=== PATIENT | female | born 1955 | race Caucasian/White ===

== ENCOUNTER 2017-12-28 13:17 | Emergency (ER) | payer BC, SELFPAY ==
[2017-12-28 13:17] VITALS: BP 155/92; PULSE 108; RESP 20; TEMP 37.2; O2SAT 94
[2017-12-28 13:21] VITALS: RESP 16
--- NOTE | 2017-12-28 14:34 | ED.GENADUL_ITS ---
Discharge Plan Disposition Patient Disposition: HOME Condition: Stable Discharge Details Chief Complaint: SOB Clinical Impression: EtOH dependence, Community acquired pneumonia Primary Care Provider: Javy Molina ED Provider: Ryan Navarro Home Meds and New Rx's Prescriptions: New azithromycin 250 mg tablet See Label Instructions .ROUTE .COMPLEX Qty: 6 RF: 0 chlordiazepoxide HCl 25 mg capsule 25 mg PO Q12H PRN (Reason: alcohol withdrawal) Qty: 10 RF: 0 Discharge Instructions Instructions: Abuse of Alcohol (ED), Community Acquired Pneumonia (ED) Additional Instructions: Please take medications as directed, if you feel any change of heart and you would like the additional workup that we talked about, or potential placement for rehab, or if you have any worsening of your symptoms please return immediately. if you notice any worsening of your symptoms, or any new symptoms such as vomiting, diarrhea, fever, chills, shortness of breath, chest pain, numbness, weakness, or fainting , please return immediately to the emergency department for reevaluation. Please follow up with your primary care provider as soon as possible for reassessment and reevaluation. As always, it was a pleasure participating in your medical care today. Referrals: Javy Molina MD [Primary Care Provider] - Discharge Data Discharge Date/Time-TO BE ENTERED AT DEPARTURE: 12/28/17 14:50 Medical Decision Making This is a pleasant 62-year-old female who presents for evaluation of cough for the last 2 weeks with some associated congestion. Cough is productive. She does have a tobacco history. She has no associated chest pain or shortness of breath. Initially the patient refused any labs, imaging studies , and stated she just wanted an antibiotic. She refused any blood draw, or other invasive procedures. Physical exam demonstrated normal lung sounds, O2 sat of 94-98%. She is minimally tachycardic at 108. I discussed the need for further workup, the patient refuses, stating she did not want anything additional at this time. I discussed risks and benefits of a lack of further workup the patient states that she understands. However prior to discharge the patient's came in the room and states that there is more to this scenario. He states that over the last few weeks the patient has been drinking an excessive amount of alcohol. She drinks at least 6 beers per day at a minimum. He states that she is addicted to alcohol, and has a significant problem. and then got an argument in front of myself regarding the merits of alcoholism, and addiction. After a prolonged discussion the made it clear that he wanted the patient to have help. Patient states that she does not want help, she does not want to go to rehab, she wants no additional testing or anything else. Patient does state that she wants to cut down on alcohol, but is not willing to quit. Patient does appear clinically sober sent, and shows no signs of significant intoxication. I cannot force the patient against her will to undergo laboratory workup, or placement. After a long discussion, the patient was willing to accept a prescription for chlordiazepoxide for potential withdrawal symptoms, as well as azithromycin for suspected clinical pneumonia. We did give the patient resources for community health, Alcoholics Anonymous, and other community resources. I do long discussion with the patient regarding the importance of prompt return if she has any change of her symptoms, or if she at any point would like to complete the workup which we want to evaluate for any other acute etiology causing her symptoms. Patient understands as does the as well. The patient is able to speak clearly. There is no demonstration of any slurring of speech. There is evidence of clear decision making capacity. Patient is able to ambulate well without any difficulty. There are no signs of ataxia or stumbling motions. Patient will be discharged home against my medical recommendation. Diagnosis clinical pneumonia and alcohol abuse. I have extensively reviewed the treatment plan and discharge instructions with the patient and their family. I have addressed all patient concerns at this time. The patient and family was made aware of what symptoms to monitor for that would warrant a return to the emergency department. Discussed the plan with the patient and family, they demonstrate verbal understanding and agreement with our assessment and plan at this time. EKG 13: 25 Rate 92, RI 144, QTc 428, QRS 88, normal sinus rhythm, no ST elevations or depressions, inverted T waves in V1 and lead III no Q waves. HPI General Date/Time Provider Initiated Documentation: 12/28/17 14:31 . HPI Narrative: This is a 62-year-old female with a past medical history of anxiety and asthma who presents for evaluation of cough. Patient states for the last 2 weeks she has had a mild cough, she has some productive alvarez sputum. She denies any chest pain or associated shortness of breath. She denies any history of cardiac disease or arm neck or shoulder pain. She denies any associated fever. She states that she has had symptoms like this last year , where she had associated clinical pneumonia, she was given azithromycin and had notable improvement. She denies any other sick contacts. She denies any other complaints or modifying factors at this time. She does take her breathing treatments at home and states that this helps her symptoms. Denies PE risk factors such as recent long car rides, immobilization, recent surgery, prior history of DVT or PE, family history of PE or DVT, morbid obesity, exogenous estrogen and smoking, hemoptysis, history of cancer. She denies any other complaints at this time. Related Data Home Medications Medication Instructions Recorded Confirmed azithromycin See Label Instructions .ROUTE 12/28/17 .COMPLEX #6 tab chlordiazepoxide HCl 25 mg PO Q12H PRN #10 cap 12/28/17 Previous Rx's Medication Instructions Recorded azithromycin See Label Instructions .ROUTE 12/28/17 .COMPLEX #6 tab chlordiazepoxide HCl 25 mg PO Q12H PRN #10 cap 12/28/17 General Stated Complaint: SOB ARIANE: 3 Review of Systems Review of Systems All systems reviewed & are unremarkable except as noted in HPI and below PFSH Social History Smoking/Tobacco Use Status: Never Exam Narrative Exam Narrative: 1.Const: Well-nourished, Well-developed, appearing stated age 2.Eyes: PERRL, no conjunctival injection, and symmetrical lids. 3.ENT: Atraumatic external nose and ears. Moist MM. Neck: Symmetric, trachea midline, No thyromegaly. Questionable smell of alcohol in the patient's breath 4.CVS: +S1/S2, No murmurs or gallops. Peripheral pulses 2+ and equal in all extremities. Brisk capillary refill in all extremities. 5.RESP: Unlabored respiratory effort. Clear to auscultation bilaterally. No wheezes rales or rhonchi. No signs of significant respiratory distress. 6.GI: Soft, Nontender/Nondistended, No hepatosplenomegaly. No guarding or rebound. 7.MSK: Normocephalic/Atraumatic, Extremities w/o deformity or ttp No cyanosis or clubbing, Normal movement of all extremities 8.Skin: Warm, Dry. No rashes or lesions. 9.Neuro: glass unloading equipment tender II-XII grossly intact. Sensation grossly intact, no focal neurologic deficits. 10.Psych: (AAO) x3. Appropriate mood and affect Course Vital Signs Temperature 37.2 C 12/28/17 13:17 Pulse 108 H 12/28/17 13:17 Respiratory Rate 20 12/28/17 13:17 Blood Pressure 155/92 H 12/28/17 13:17 Pulse Oximetry 94 L 12/28/17 13:17 Temperature 37.2 C 12/28/17 13:17 Temperature Source Temporal Artery Scan 12/28/17 13:17 Pulse 108 H 12/28/17 13:17 Respiratory Rate 16 12/28/17 13:21 Respiratory Effort Labored 12/28/17 13:21 Respiratory Depth Normal 12/28/17 13:21 Respiratory Pattern Tachypnea 12/28/17 13:21 Blood Pressure 155/92 H 12/28/17 13:17 Blood Pressure Position Sitting 12/28/17 13:17 Pulse Oximetry 94 L 12/28/17 13:17 Oxygen Delivery Method Room Air 12/28/17 13:17 Oxygen Flow Rate 0 12/28/17 13:17 Pain Level 0 12/28/17 13:17
== END 2017-12-28 14:50 | disposition home or self-care (01) ==
LOC: ER 14:54
PROVIDERS: Emergency Provider Student in an Organized Health Care Education/Training Program; PCP Internal Medicine
DX: F10.20 Alcohol dependence, uncomplicated (principal); J18.9 Pneumonia, unspecified organism; R00.0 Tachycardia, unspecified; J45.909 Unspecified asthma, uncomplicated; Z53.29 Procedure and treatment not carried out because of patient's decision for other reasons
CPT/HCPCS: 93005; 99283; 93010

== ENCOUNTER 2018-08-24 20:53 | Outpatient (REF) | payer MEDICARE, SELFPAY ==
[2018-08-24 22:08] LABS: Abs Immature Grans 0.04 k/cumm (0.0-0.09); Absolute Basophil Count 0.03 k/cumm (0.0-0.2); Absolute Eosinophil Count 0.03 k/cumm (0.0-0.7); Absolute Lymphocyte Count 0.45 k/cumm (1.2-3.4); Absolute Monocyte Count 0.47 k/cumm (0.11-0.7); Absolute Neutrophil Count 3.29 k/cumm (1.2-6.7); Basophils % 0.7; Eosinophils % 0.7; HCT 42.6 % (36.0-46.0); HGB 14.1 g/dL (12.0-15.5); Immature Grans % 0.9; Lymphocytes % 10.4; Mean Corp. HGB Concentration 33.1 g/dL (32.0-36.0); Mean Corpuscular Hemoglobin 35.5 pg (27.0-33.0); Mean Corpuscular Volume 107.3 fL (80-95); Mean Platelet Volume 9.9 fL (8.0-11.0); Monocytes % 10.9; Neutrophils % 76.4; RBC 3.97 m/cumm (4.00-5.20); RBC Distribution Width 12.9 % (11.7-14.6); White Blood Cell Count 4.31 k/cumm (4.4-10.8)
[2018-08-24 22:19] LABS: Iron 44 ug/dL (50-175); Total Iron Binding Capacity 250 ug/dL (250-450); Transferrin Sat 18 % (15-50)
[2018-08-24 22:48] LABS: Diff Comment RBC Morph Reviewed; Macrocytosis 2+; Platelet Count 69 x1000/uL (130-400)
[2018-08-24 23:13] LABS: ALT 118 U/L (12-78); AST 224 U/L (15-37); Albumin 3.8 g/dL (3.4-5.0); Alkaline Phosphatase 302 U/L (46-116); Anion Gap 15.9 mmol/L (3-11); BUN 9 mg/dL (7-18); Bilirubin, Total 1.8 mg/dL (0.2-1.0); CO2 25.1 mmol/L (21.0-32.0); CREATININE 0.73 mg/dL (0.55-1.02); Calcium 9.6 mg/dL (8.5-10.1); Chloride 104 mmol/L (98-107); Glucose 122 mg/dL (70-100); Magnesium 1.8 mg/dL (1.8-2.4); Potassium 3.3 mmol/L (3.5-5.1); Sodium 145 mmol/L (136-145); TSH (W/Ref FT4) 1.68 uIU/mL (0.358-3.74); Total Protein 7.1 g/dL (6.4-8.2); Vitamin B12 1267 pg/mL (193-986)
[2018-08-24 23:20] LABS: Ferritin 1762 ng/mL (8-388)
[2018-08-26 10:38] LABS: Hepatitis A Antibody IgM Negative (NEGAT); Hepatitis B Core Antibody Negative (NEGAT); Hepatitis B surface Ag Negative (NEGAT); Hepatitis C Ab w Rflx HCV PCR Negative (NEGAT)
== END 2018-08-24 21:13 ==
LOC: NCHCN 20:53
PROVIDERS: PCP Nurse Practitioner Family; Visit Provider Nurse Practitioner Family
DX: R41.3 Other amnesia (principal); R13.10 Dysphagia, unspecified; R06.83 Snoring; R10.31 Right lower quadrant pain; R79.89 Other specified abnormal findings of blood chemistry; R74.8 Abnormal levels of other serum enzymes
CPT/HCPCS: 80053; 86704; 86709; 86803; 87340; 82607; 82728; 83540; 83550; 83735; 84443; 85025

== ENCOUNTER 2018-08-25 01:27 | Outpatient (CLI) | payer MEDICARE, SELFPAY ==
--- NOTE | 2018-08-25 09:31 | DI.RAD_ITS ---
SYMPTOM/DIAGNOSIS: ACCIDENTAL FALL W19.XXXA, GROIN PAIN RT R10.31 PELVIS AND LEFT HIP: No fracture or dislocation is seen. Hip joint spaces are well maintained. There is some sclerosis of the pubic symphysis and S-I joints. Degenerative changes are seen of the facets of the lower lumbar spine. IMPRESSION: No acute abnormality.
== END 2018-08-25 01:47 ==
PROVIDERS: PCP Nurse Practitioner Family; Visit Provider Nurse Practitioner Family
DX: R10.31 Right lower quadrant pain (principal); W19.XXXA Unspecified fall, initial encounter
CPT/HCPCS: 73502

== ENCOUNTER 2018-08-28 10:03 | Outpatient (CLI) | payer MEDICARE, SELFPAY ==
--- NOTE | 2018-09-16 11:57 | ZIOP_ITS ---
DATE OF INTERPRETATION: September 16, 2018 STUDY INDICATIONS: Arrhythmia. REQUESTING PROVIDER: Sue Bhatia N.P. FINDINGS: The patient was monitored for 12 days and 15 hours. The predominant underlying rhythm was sinus rhythm. Average heart rate in sinus rhythm 77 bpm, range 47-116 bpm. There was rare ectopy. There were 6 episodes of supraventricular tachycardia, average heart rate 134 bpm, range 66-197 bpm. The longest episode lasted 10.2 seconds with an average heart rate of 138 bpm. There were no pauses greater than 3 seconds. There was no high degree heart block. There were no patient events. FINAL INTERPRETATION: Rare, asymptomatic atrial tachyarrhythmias.
== END 2018-08-28 10:23 ==
PROVIDERS: PCP Nurse Practitioner Family; Visit Provider Nurse Practitioner Family
DX: I47.9 Paroxysmal tachycardia, unspecified (principal); I47.1 Supraventricular tachycardia; I49.9 Cardiac arrhythmia, unspecified
CPT/HCPCS: 0296T

== ENCOUNTER 2018-09-01 01:13 | Outpatient (CLI) | payer MEDICARE, SELFPAY ==
--- NOTE | 2018-09-01 07:38 | DI.US_ITS ---
SYMPTOM/DIAGNOSIS: ELEVATED LIVER ENZYMES, R74.8 ABDOMEN ULTRASOUND: The liver is normal in size but shows diffusely increased echogenicity and decreased through transmission consistent with fatty infiltration. No focal liver lesions or biliary dilatation is seen. A 7 mm rounded nonshadowing focus is seen in the gallbladder which may represent a small polyp. There is a question of a stone at the lower pole of the left kidney as well as an additional stone at the upper pole of the right kidney. There is no evidence of hydronephrosis or perinephric collection. The pancreas, spleen and aorta appear normal. There is no right upper quadrant fluid. IMPRESSION: Moderate hepatic steatosis. Question of bilateral nonobstructing renal calculi
== END 2018-09-01 01:33 ==
PROVIDERS: PCP Nurse Practitioner Family; Visit Provider Nurse Practitioner Family
DX: R74.8 Abnormal levels of other serum enzymes (principal); K76.0 Fatty (change of) liver, not elsewhere classified; N20.0 Calculus of kidney
CPT/HCPCS: 76700

== ENCOUNTER 2018-10-28 13:40 | Emergency (ER) | payer MEDICARE, SELFPAY ==
[2018-10-28] VITALS (23 sets, daily range): BP systolic 106–143; BP diastolic 63–120; PULSE 60–102; RESP 9–23; TEMP 36.7; O2SAT 92–98
--- NOTE | 2018-10-28 13:53 | ED.GENADUL_ITS ---
Discharge Plan Disposition Patient Disposition: HOME Condition: Improving Discharge Details Chief Complaint: AMS/LOC Clinical Impression: Alcohol intoxication Primary Care Provider: Sue Bhatia ED Provider: Jesu Blanton Home Meds and New Rx's Prescriptions: Continued chlordiazepoxide HCl 25 mg capsule 25 mg PO Q12H PRN (Reason: alcohol withdrawal) Qty: 10 RF: 0 No Action azithromycin 250 mg tablet See Rx Instructions .ROUTE .COMPLEX Qty: 6 RF: 0 Discharge Instructions Instructions: Alcohol Intoxication (ED) Additional Instructions: Please follow-up with Elaina Sriram for recheck. Decrease your alcohol use. Home to rest today. Return for any acute concern Medical Decision Making 63-year-old female who was drinking alcohol this morning. She eleuterio to get up off the couch, felt unsteady, fell backwards striking her head. There was report of question of 3 to 4 seconds of loss of consciousness. Patient states she now feels normal. She denied chest pain, palpitations, headache. She presents with blood pressure 139/95, otherwise normal vital signs. Her exam is within normal limits. Clinically she is engaging with fluent speech, does not appear intoxicated. Given her use of alcohol, screening laboratories obtained and as well patient referred for CT scan to rule out cranial injury. Laboratories notable for alcohol level of 410. Total bili is 1.3, AST 26, ALT 126. Troponin negative. Sodium 141, potassium 3.4, chloride 98, bicarb 23. There is a measured anion gap of 19 likely due to alcohol. CBC with white blood cell count 4, hematocrit 43, platelets low at 54. Note of MCV elevated. CT scan of the head unremarkable. Given 1 L fluid and observed with improvement. No complaints. She is clinically sober. Discussed her alcohol use with her and she declines further referral at this time. She is stable for discharge to home. ECG Data Attestation: I personally reviewed and interpreted this ECG (s) as follows: Interpretation: Normal sinus rhythm with a rate of 78, the QRS is narrow, no ST segment changes present. HPI General Mode of arrival: EMS . Date/Time Provider Initiated Documentation: 10/28/18 13:48 . Limitations to Documentation: no limitations . Information obtained by: patient and EMS . History of Present Illness 63 year old F presents to the emergency department with the chief complaint of Fall at home, no pain, described as mild, and is localized to the head. Patient reports no radiation. Patient started experiencing this minute(s) and it has been now resolved. No relieving factors improve symptom(s), No exacerbating factors reported . Patient notes no other symptoms. and other (Drinking alcohol this morning). Patient did receive the following treatments prior to arrival, none Related Data Home Medications Medication Instructions Recorded Confirmed azithromycin See Rx Instructions .ROUTE 12/28/17 .COMPLEX #6 tab chlordiazepoxide HCl 25 mg PO Q12H PRN #10 cap 12/28/17 Previous Rx's Medication Instructions Recorded azithromycin See Rx Instructions .ROUTE 12/28/17 .COMPLEX #6 tab chlordiazepoxide HCl 25 mg PO Q12H PRN #10 cap 12/28/17 General Stated Complaint: AMS/LOC ARIANE: 2 Review of Systems Review of Systems 6 systems reviewed and otherwise negative. States she has occasional use of alcohol during the day. Denies headache, no back/chest/abdomen pain. [facility] Social History Smoking/Tobacco Use Status: Never Drug use: Never Do you feel safe in your relationship?: Yes Exam Narrative Exam Narrative: GEN: awake, alert, oriented 3. Pleasant, well groomed, interactive. HEAD: Normocephalic, atraumatic ENT: Mucous membranes moist, oropharynx unremarkable, External ear exam unremarkable EYES: PERRL, EOMI NECK: Full ROM, no PAOLA, no menigismus CHEST/RESP: Nontender, clear to auscultation bilateral, no wheeze/rhonchi/rales CARDIOVASCULAR: RRR, no murmur, rub pedro. 2+ Rad pulse bilateral ABDOMEN: Soft, nontender, no mass. +Bowel sounds EXT: Full ROM, no edema, no rash Neuro: Grossly normal neurologic exam, conversant, interactive. Psych: Speech fluent, thoughts congruent, affect normal Course Vital Signs Temperature 36.7 C 10/28/18 13:40 Pulse 89 10/28/18 13:40 Respiratory Rate 16 10/28/18 13:40 Blood Pressure 139/95 H 10/28/18 13:40 Pulse Oximetry 94 L 10/28/18 13:40 Temperature 36.7 C 10/28/18 13:40 Temperature Source Temporal Artery Scan 10/28/18 13:40 Pulse 89 10/28/18 13:40 Respiratory Rate 16 08/28/19 13:40 Blood Pressure 139/95 H 10/28/18 13:40 Blood Pressure Position Supine 10/28/18 13:40 Pulse Oximetry 94 L 10/28/18 13:40 Oxygen Delivery Method Room Air 10/28/18 13:40 Oxygen Flow Rate 0 10/28/18 13:40
--- NOTE | 2018-10-28 13:53 | DI.CT_ITS ---
SYMPTOMS/DIAGNOSIS: FALL, LOSS OF CONSCIOUSNESS, POSITIVE ALCOHOL CT BRAIN: Noncontrast. No priors. The ventricles and sulci are consistent with the patient's age. No acute intracranial hemorrhage, midline shift or mass effect is identified. The ventricles are intact. The basilar cisterns are patent. The visualized paranasal sinuses and mastoid air cells are clear. The calvarium is intact. IMPRESSION: No acute intracranial process. The findings were discussed with the emergency department on the date of the examination.
[2018-10-28] MEDS: Normal Saline 1,000 ML 1000 ML IV (14:10)
[2018-10-28 14:20] LABS: ALT 126 U/L (14-59); AST 261 U/L (15-37); Abs Immature Grans 0.05 k/cumm (0.0-0.09); Absolute Basophil Count 0.04 k/cumm (0.0-0.2); Absolute Eosinophil Count 0.02 k/cumm (0.0-0.7); Absolute Lymphocyte Count 0.75 k/cumm (1.2-3.4); Absolute Monocyte Count 0.36 k/cumm (0.11-0.7); Albumin 4.2 g/dL (3.4-5.0); Alkaline Phosphatase 179 U/L (46-116); Anion Gap 19.3 mmol/L (3-11); BUN 10 mg/dL (7-18); Bilirubin, Total 1.3 mg/dL (0.2-1.0); CO2 23.7 mmol/L (21.0-32.0); CREATININE 0.64 mg/dL (0.55-1.02); Calcium 9.1 mg/dL (8.5-10.1); Chloride 98 mmol/L (98-107); Eosinophils % 0.5; Glucose 74 mg/dL (70-100); HCT 43.7 % (36.0-46.0); HGB 14.5 g/dL (12.0-15.5); Immature Grans % 1.2; Lymphocytes % 18.7; Magnesium 1.9 mg/dL (1.8-2.4); Mean Corp. HGB Concentration 33.2 g/dL (32.0-36.0); Mean Corpuscular Hemoglobin 34.3 pg (27.0-33.0); Mean Corpuscular Volume 103.3 fL (80-95); Mean Platelet Volume 8.6 fL (8.0-11.0); Neutrophils % 69.6; Potassium 3.4 mmol/L (3.5-5.1); RBC 4.23 m/cumm (4.00-5.20); RBC Distribution Width 15.3 % (11.7-14.6); Sodium 141 mmol/L (136-145); Total Protein 7.8 g/dL (6.4-8.2); White Blood Cell Count 4.02 k/cumm (4.4-10.8)
[2018-10-28 14:23] LABS: ETHANOL BLOOD 410.8 mg/dL (<3); Troponin I < 0.05 ng/mL (0.00-0.06)
[2018-10-28 14:32] LABS: Platelet Count 54 x1000/uL (130-400)
[2018-10-28 14:33] LABS: Diff Comment Diff Reviewed; RBC Morphology Normal
== END 2018-10-28 15:57 | disposition home or self-care (01) ==
PROVIDERS: Emergency Provider Emergency Medicine; PCP Nurse Practitioner Family
DX: F10.220 Alcohol dependence with intoxication, uncomplicated (principal); Y90.8 Blood alcohol level of 240 mg/100 ml or more; W01.198A Fall on same level from slipping, tripping and stumbling with subsequent striking against other object, initial encounter
CPT/HCPCS: 36415; 80053; 93005; 96360; 99285; 70450; 80320; 83735; 84484; 85025; 93010; 99284

== ENCOUNTER 2020-06-16 18:06 | Emergency (ER) | payer MEDICARE, SELFPAY ==
[2020-06-16 18:07] VITALS: BP 124/77; PULSE 77; RESP 18; TEMP 36.5; O2SAT 97
--- NOTE | 2020-06-16 18:24 | ED.GENADUL_ITS ---
Discharge Plan Disposition Patient Disposition: [facility] Condition: Serious Discharge Details Chief Complaint: Abd Prob Clinical Impression: Acute cholecystitis, Acute liver failure Primary Care Provider: Sue Bhatia ED Provider: Hernando Styles Home Meds and New Rx's Prescriptions: No Action polyethylene glycol 3350 [Miralax] 17 gram Powder In Packet 17 g PO PRN PRNRF: 0 Medical Decision Making 64 yo female who denies chronic medical problems comes in with ems with right sided abdomen pain and distention. She noticed this pain 3 days ago and has never had pain like this before. Denies n/v, fevers, chills, chest pain, shortness of breath. She states the pain is mainly right sided upper more than lower abdomen pain. She does have a distended feeling abdomen with tenderness, and has tenderness in the lower and upper abdomen. Denies drinking heavily now but years ago did drink excessively. Will obtain labs and imaging to evaluate for sbo, ascites, mass, abscess among other pathology. labs show she is likely in acute liver failure with elevated inr, elevated bilirubin, elevated lfts and ct showing cirrhosis and has ascites and pleural effusion. She also has what appears to be cholecystitis. Remains stable. I spoke with Dr. burns from general surgery who did not feel the patient could be managed here. Spoke with [facility] and they are not accepting transfers, will discuss with [facility]. I did discuss risks and benefits of doing diagnostic paracentesis and she agreed to have the procedure done to evaluate for possible SBP. Procedure done using sterile technique and had cloudy fluid returnin 20cc syringe, tolerated well without complications pt in no distress, bp is 90/60 but has normal heart so will hold on pressors at this time. [facility] accepted to their ED, accepting povider is Dr. corral. Differential Diagnosis Differential Diagnosis: ascites, sbo, cancer, abscess Imaging Data Radiologic Study: Attestation: I personally reviewed and interpreted this imaging study as follows: Imaging: CT Scan Radiologist's impression: IMPRESSION: 1. Cholelithiasis and CT findings suggestive of acute cholecystitis. 2. Enlarged cirrhotic liver. Sequelae of portal hypertension including splenomegaly and varices. Recanalized umbilical vein. Moderate abdominal and pelvic ascites. 3. Moderate-sized right pleural effusion with adjacent right lower lobe atelectasis. Medial right middle lobe atelectasis. 4. Posterior enhancing endometrial mass. Recommend pelvic ultrasound and Gynecologic consultation. Lab Data Lab results reviewed: Yes I reviewed the patient's lab results. HPI General Mode of arrival: EMS . Date/Time Provider Initiated Documentation: 06/16/20 18:14 . Limitations to Documentation: no limitations . Information obtained by: patient . History of Present Illness 64 year old F presents to the emergency department with the chief complaint of abdomen pain, described as moderate, Quality is described as stabbing, and is localized to the abdomen. Patient reports no radiation. Patient started experiencing this day(s) (3) and it has been constant. No relieving factors improve symptom(s), No exacerbating factors reported . Patient notes no other symptoms.. Related Data Home Medications Medication Instructions Recorded Confirmed polyethylene glycol 3350 [Miralax] 17 g PO PRN PRN 06/16/20 06/16/20 Allergies Allergy/AdvReac Type Severity Reaction Status Date / Time erythromycin base AdvReac Mild Nausea Unverified 06/16/20 18:16 General Stated Complaint: Abd Prob ARIANE: 3 Review of Systems All systems reviewed & are unremarkable except as noted in HPI and below Constitutional Constitutional: Denies chills, Denies fever(s) and Denies weakness Cardiovascular Cardiovascular: Denies chest pain and Denies dyspnea Respiratory Respiratory: Denies cough and Denies dyspnea Gastrointestinal Gastrointestinal: Denies nausea and Denies vomiting Genitourinary Genitourinary: Denies dysuria Musculoskeletal Musculoskeletal: Denies joint swelling Integumentary/Breasts Skin/Breast: Denies rash Neurologic Neurologic: Denies weakness [facility] Social History Smoking/Tobacco Use Status: Never Smoking risk assessment performed?: Yes Alcohol Intake: current Alcohol Intake frequency: a few times a week Alcohol type: beer Drug use: Never Do you feel safe at home: Yes Do you feel safe in your relationship?: Yes Exam Const General: no acute distress Orientation: alert HENMT Head: normal to inspection Ears: external ears normal General nose exam: external nose normal Mouth: moist mucous membranes Eyes General: appearance normal, both eyes and all related structures Neck Neck: normal visual inspection Resp Effort & Inspection: normal respiratory effort and able to speak in complete sentences Cardio Rate: regular rate GI Inspection: distended Palpation: not rigid and tender Skin General skin exam: no rashes or lesions noted Neuro General: patient alert and patient oriented x3 Extrem General: normal to inspection Psych Mental Status: mental status grossly normal Course Vital Signs Vital signs: Vital Signs Temperature 36.5 C 06/16/20 18:07 Pulse 77 06/16/20 18:07 Respiratory Rate 18 06/16/20 18:07 Blood Pressure 124/77 06/16/20 18:07 Pulse Oximetry 97 06/16/20 18:07 Temperature 36.5 C 06/16/20 18:07 Pulse 77 06/16/20 18:07 Respiratory Rate 18 06/16/20 18:07 Respiratory Effort 06/16/20 18:20 Blood Pressure 124/77 06/16/20 18:07 Blood Pressure Position Sitting 06/16/20 18:07 Pulse Oximetry 97 06/16/20 18:07 Oxygen Delivery Method Room Air 06/16/20 18:07 Oxygen Flow Rate 0 06/16/20 18:07 Pain Level 8 06/16/20 18:07 Procedures Paracentesis Time Out Performed: Yes Local Anesthetic: Lidocaine 1% Amount of anesthesia used (mL): 4 Fluid: cloudy Post Procedure Exam: awake, alert, normal BP, normal HR and normal SpO2 Patient Tolerated Procedure: well Complications: none
[2020-06-16 18:26] LABS: Abs Immature Grans 0.27 10^3/uL (0.0-0.06); Absolute Basophil Count 0.11 10^3/uL (0.0-0.2); Absolute Eosinophil Count 0.44 10^3/uL (0.0-0.7); Absolute Lymphocyte Count 0.96 10^3/uL (1.2-3.4); Absolute Monocyte Count 1.07 10^3/uL (0.1-0.8); Basophils % 0.5; HCT 38.9 % (36.0-46.0); HGB 13.7 g/dL (11.2-15.7); Immature Grans % 1.2; Lymphocytes % 4.4; MCHC 35.2 % (32.0-36.0); MCV 107.8 fL (80-95); MPV 8.6 fL (8.0-11.0); Monocytes % 4.9; Nucleated RBC 0 %; Platelet Count 139 10^3/uL (130-400); RBC 3.61 10^6/uL (3.93-5.22); RDW 12.2 % (11.7-14.6); RDW-SD 48.3 fL; WBC 21.84 10^3/uL (4.4-10.8)
--- NOTE | 2020-06-16 18:31 | NUR.NOTE ---
Nursing Note: [place] [phone]
[2020-06-16] MEDS: Normal Saline - Diluent 50 ML VIAL IV (18:38)
--- NOTE | 2020-06-16 18:40 | DI.CT_ITS ---
EXAM: CT ABDOMEN PELVIS W INDICATION: right sided abdomen pain and distention. COMPARISON: No exams were available for comparison TECHNIQUE: FINDINGS: CT examination of the abdomen and pelvis was performed with a bolus infusion of 60 cc of Visipaque 32 0. There is a large right pleural effusion and there is marked abdominal ascites. There are small areas of atelectasis in the right lung base secondary to the pleural effusion. No other focal pulmonary a bnormality seen. Cardiac size within normal limits. No pericardial effusion.. The liver shows heterogeneous echotexture and nodular margin consistent with cirrhosis. There is mil d splenomegaly. Mild upper abdominal varices appear to be present consistent with portal venous hype rtension. Gallbladder wall edema noted, consistent with ascites. Cholelithiasis noted. No biliary dilatation. Pancreas appears normal. Spleen is unremarkable in appearance. Adrenals appear normal. The kidneys are unremarkable with no evidence of hydronephrosis, nephrolithiasis, or renal mass.. Ur inary bladder unremarkable. Abdominal aorta is of normal diameter and no major vascular abnormality is seen. No abdominal wall hernia. No abdominal or pelvic adenopathy. There is question of enhancing endometrial lesion, abnormal in a postmenopausal patient. Correlation with pelvic ultrasound recommended. Appendix is normal. No evidence of diverticulitis or bowel obstruction. IMPRESSION: Severe diffuse abdominal ascites with associated right pleural effusion. Findings consistent with ci rrhosis and portal venous hypertension. Possible endometrial mass, correlation with pelvic ultrasound recommended. Cholelithiasis, gallbladder wall edema which is nonspecific and which may be secondary to ascites. P lease correlate clinically. RADIATION DOSE DELIVERED: 557.38mGy.cm Total DLP 557.38mGy.cm Total DLP RADIATION OPTIMIZATION: All CT scans at this facility use at least one of these dose optimization te chniques: automated exposure control; mA and/or kV adjustment per patient size (includes targeted exa ms where dose is matched to clinical indication); or iterative reconstruction.
[2020-06-16 18:46] LABS: INR 1.5 (0.9-1.1); PTT Activated 26.4 sec (21.0-27.5); Prothrombin Time 14.9 sec (9.3-11.0)
[2020-06-16 18:48] LABS: ALT 47 U/L (14-59); AST 124 U/L (15-37); Albumin 2.3 g/dL (3.4-5.0); Alkaline Phosphatase 461 U/L (46-116); BUN 3 mg/dL (7-18); Bilirubin, Direct 3.4 mg/dL (0.0-0.2); CREATININE 0.6 mg/dL (0.55-1.02); Calcium 8.4 mg/dL (8.5-10.1); Chloride 89 mmol/L (98-107); Glucose 129 mg/dL (74-106); Lipase 48 U/L (73-393); Potassium 3.2 mmol/L (3.5-5.1); Sodium 125 mmol/L (136-145); Total Protein 6.1 g/dL (6.4-8.2)
[2020-06-16] MEDS: Ketorolac 15 MG/ML VIAL IVP (18:55)
[2020-06-16 19:01] VITALS: BP 90/51; PULSE 89; RESP 18; O2SAT 95
--- NOTE | 2020-06-16 19:02 | DI.VRAD_ITS ---
Addendum created by Willian Vazquez MD on 06/16/2020 7:10:19 PM EDT: The study was personally discussed on the telephone with YING Brock on 06/16/2020 7:10 PM EDT. The results were understood and acknowledged. Initial report created on 06/16/2020 7:01:59 PM EDT: PROCEDURE INFORMATION: Exam: CT Abdomen And Pelvis With Contrast Exam date and time: 06/16/2020 6:24 PM Age: 64 years old Clinical indication: Localized; Patient HX: Right sided abdominal pain and distension TECHNIQUE: Imaging protocol: Computed tomography of the abdomen and pelvis with contrast. COMPARISON: CR XR hip RT complete AP pelvis 08/25/2018 9:31 AM FINDINGS: Lungs: The visualized left lung base is clear. Pleural spaces: Moderate-sized right pleural effusion with adjacent right lower lobe atelectasis. Medial right middle lobe atelectasis. Liver: Enlarged cirrhotic liver. Moderate volume of abdominal and pelvic ascites. Gallbladder and bile ducts: Multiple large gallstones within the gallbladder and mild mucosal enhancement and wall thickening. No intrahepatic or extrahepatic biliary ductal dilatation. Pancreas: Pancreatic parenchymal atrophy. Spleen: Splenomegaly. The spleen is enlarged at 13.5 cm. Adrenal glands: Normal. No mass. Kidneys and ureters: Right 6 mm simple renal cortical cyst. Left anterior interpolar lobation.. No hydronephrosis. Stomach and bowel: Mild thickening of the right hemicolon due to portal hypertensive colopathy. Small right lower quadrant mesenteric varices. Appendix: Normal appendix. No appendicitis. Intraperitoneal space: Small gastrohepatic ligament varices. Recanalized umbilical vein consistent with portal hypertension. Vasculature: See Intraperitoneal space finding. Lymph nodes: No lymphadenopathy. Urinary bladder: Unremarkable as visualized. Reproductive: Posterior endometrial enhancing mass measuring 2.4 cm. Normal bilateral ovaries. Bones/joints: Old healed right inferior pubic and superior pubic ramus fractures. No wedge compression fractures of the visualized thoracic and lumbar spine. No lytic or blastic osseous lesions. Soft tissues: Unremarkable. IMPRESSION: 1. Cholelithiasis and CT findings suggestive of acute cholecystitis. 2. Enlarged cirrhotic liver. Sequelae of portal hypertension including splenomegaly and varices. Recanalized umbilical vein. Moderate abdominal and pelvic ascites. 3. Moderate-sized right pleural effusion with adjacent right lower lobe atelectasis. Medial right middle lobe atelectasis. 4. Posterior enhancing endometrial mass. Recommend pelvic ultrasound and Gynecologic consultation. Dictated and Authenticated by: Willian Vazquez MD. Ordering:DREW Villagomez MD
[2020-06-16 19:09] VITALS: BP 106/68; PULSE 90; RESP 17; O2SAT 98
[2020-06-16 19:20] LABS: Bilirubin Moderate (Negative); Blood Moderate (Negative); Clarity Clear (Clear); Glucose Negative (Negative); Ketones Negative (Negative); Leukocyte Esterase Negative (Negative); Nitrite Negative (Negative)
[2020-06-16 19:33] LABS: Acetaminophen < 2 ug/mL (10-30)
[2020-06-16] MEDS: PIPERACILLIN/TAZO 4.5 GM in Normal Saline 100 ML IVPB (19:33)
[2020-06-16 19:34] LABS: Bacteria Few HPF (Negative); C & S Indicated? Yes; Casts Negative LPF (Negative); Crystals Negative HPF (Negative); Epithelial Cells Few HPF (Negative); Mucus Negative (Negative); Other Cells Negative (Negative)
[2020-06-16] MEDS: Lactated Ringers 1,000 ML 150 ML IV (20:23)
[2020-06-16 20:24] LABS: Lactate 2.1 mmol/L (0.6-1.4)
[2020-06-16 20:33] LABS: ETHANOL BLOOD 16.6 mg/dL (<3)
[2020-06-16 20:34] LABS: Source Nasal/Nares
[2020-06-16 20:36] VITALS: BP 91/53; PULSE 92; RESP 12; TEMP 36.8; O2SAT 96
[2020-06-16 20:39] LABS: Clarity Cloudy
[2020-06-16 20:40] LABS: Mononuclear Cells 89 %; Nucleated Cells 147 uL (0); Polynuclear Cells 11 %
[2020-06-16 21:06] VITALS: BP 96/57; PULSE 93; RESP 15; TEMP 36.3; O2SAT 98
[2020-06-16] MEDS: fentaNYL 100 MCG/2 ML VIAL 50 MCG IVP (21:58)
[2020-06-16 22:13] LABS: COVID-19 PCR Negative (Negative)
--- NOTE | 2020-06-18 10:49 | NUR.NOTE ---
Nursing Note: Urine culture came back on patient. Patient was transferred to [facility]. I faxed this result to the unit at [facility]. . Michela De La Paz
[2020-06-19 11:19] LABS: Hepatitis A Antibody IgM Negative (Negative); Hepatitis B Core Antibody Negative (Negative); Hepatitis B surface Ag Negative (Negative); Hepatitis C Ab w Rflx HCV PCR Negative (Negative)
--- NOTE | 2020-06-20 09:25 | NUR.NOTE ---
Fluid Culture result faxed to [facility] where patient was transferred.Nursing Note:
[2020-06-29 08:17] LABS: Source Peritoneal
== END 2020-06-16 22:05 ==
PROVIDERS: Emergency Provider Emergency Medicine; PCP Nurse Practitioner Family
DX: K81.0 Acute cholecystitis (principal); K72.00 Acute and subacute hepatic failure without coma; R18.8 Other ascites
CPT/HCPCS: 49082; 80053; 83690; 86704; 86709; 86803; 87077; 87340; 87635; 96365; 96375; 99285; 74177; 80320; 80329; 81003; 81015; 82248; 83605; 85025; 85610; 85730; 87070; 87086; 87186; 87205; 89051; 99284; J1885; J2543; J3010

== ENCOUNTER 2020-07-03 16:28 | Outpatient (REF) | payer MEDICARE, SELFPAY ==
[2020-07-03 20:52] LABS: Abs Immature Grans 0.15 10^3/uL (0.0-0.06); Basophils % 0.3; Eosinophils % 1.7; HCT 33.4 % (36.0-46.0); HGB 12.3 g/dL (11.2-15.7); Immature Grans % 0.7; Lymphocytes % 2.5; MCH 37.7 pg (27.0-33.0); MCHC 36.8 % (32.0-36.0); MCV 102.5 fL (80-95); MPV 9.2 fL (8.0-11.0); Monocytes % 4.4; Neutrophils % 90.4; Nucleated RBC 0 %; Platelet Count 131 10^3/uL (130-400); RBC 3.26 10^6/uL (3.93-5.22); RDW 12.4 % (11.7-14.6); WBC 22.91 10^3/uL (4.4-10.8)
[2020-07-03 21:09] LABS: ALT 46 U/L (14-59); AST 114 U/L (15-37); Albumin 2.3 g/dL (3.4-5.0); Alkaline Phosphatase 353 U/L (46-116); BUN 10 mg/dL (7-18); Bilirubin, Total 10.9 mg/dL (0.2-1.0); CREATININE 0.6 mg/dL (0.55-1.02); Calcium 8.4 mg/dL (8.5-10.1); Chloride 83 mmol/L (98-107); Glucose 114 mg/dL (74-106); Potassium 3.5 mmol/L (3.5-5.1); Total Protein 5.5 g/dL (6.4-8.2)
[2020-07-03 21:19] LABS: Sodium 120 mmol/L (136-145)
[2020-07-03 21:30] LABS: Absolute Basophil Count 0.07 10^3/uL (0.0-0.2); Absolute Eosinophil Count 0.39 10^3/uL (0.0-0.7); Absolute Lymphocyte Count 0.57 10^3/uL (1.2-3.4); Absolute Monocyte Count 1.01 10^3/uL (0.1-0.8); Absolute Neutrophil Count 20.71 10^3/uL (1.2-6.7)
[2020-07-03 21:34] LABS: Diff Comment Diff Reviewed
[2020-07-03 22:26] LABS: RBC Morphology Normal
== END 2020-07-03 16:29 | disposition home or self-care (01) ==
LOC: NCHCN 16:28
PROVIDERS: PCP Nurse Practitioner Family; Visit Provider Nurse Practitioner Family
DX: R53.1 Weakness (principal); F10.10 Alcohol abuse, uncomplicated; K70.31 Alcoholic cirrhosis of liver with ascites; K81.0 Acute cholecystitis; K76.0 Fatty (change of) liver, not elsewhere classified
CPT/HCPCS: 80053; 85025

== ENCOUNTER 2020-07-04 08:50 | Inpatient (IN) | payer MEDICARE, SELFPAY ==
[2020-07-04] VITALS (18 sets, daily range): BP systolic 85–130; BP diastolic 43–89; PULSE 74–95; RESP 12–20; TEMP 36.7–37.2; O2SAT 98–100
--- NOTE | 2020-07-04 08:45 | RT.EKG_ITS ---
APPROVED REPORT Exam: Resting ECG Reason for Exam: low sodium Patient Location: E HR:90 bpm ECG Measurements Heart Rate 90 AXIS PA 114 P 36 QRSd 82 QRS 1 QT 381 T 3 QTc 466 Conclusion Sinus rhythm...normal P axis, V-rate 60- 99
--- NOTE | 2020-07-04 08:51 | W.ED.GENAD ---
Discharge Plan Disposition Patient Disposition: [facility] INPATIENT Condition: Stable Discharge Details Clinical Impression: Hyponatremia, Acute liver failure, Leukocytosis Admit Date/Time: 07/04/20 11:44 Admit Provider: Justin Villalpando Attending Provider: Justin Villalpando Primary Care Provider: Sue Bhatia ED Provider: Blaise Craig Discharge Data Discharge Date/Time-TO BE ENTERED AT DEPARTURE: 07/04/20 13:11 Medical Decision Making 64-year-old female with recent diagnosis of liver failure, presenting to the ER today for abnormal laboratory values obtained yesterday. I was able to review the discharge summary and medical records from [facility]. Patient was discharged on 06-20-20. She had a surgical consultation, low suspicion for acute cholecystitis. Abdominal pain has resolved completely and a HIDA scan was performed and was negative the diagnostic paracentesis performed at our facility was unremarkable. Patient was started on diuretics. Her blood pressure was consistently low in the 90s over 50s. She did establish a local primary care provider and referred to GI as an outpatient. Will obtain IV access, obtain laboratory values to recheck her abnormal labs from yesterday, single troponin, EKG, and obtain ultrasound of her RUQ Laboratory values reveal a white blood cell count of 17.70, this is trending downward. Hemoglobin 11.5 hematocrit 31.2 platelet count cannot be read because of aggregation. INR 1.6 lactate 1.6 sodium 122 magnesium 1.6, total bilirubin 10.3 AST 100 alk phosphatase 317, ammonia 21, troponin 0.05, albumin 2.0. Chest x-ray reveals large right pleural effusion. Ultrasound reveals hepatic cirrhosis and a large amount of abdominal ascites. Cholelithiasis but no biliary ductal dilatation. Asymmetric wall thickening seen in the fundus of the gallbladder, this may be abdominal ascites but cannot exclude a mass. Right pleural effusion. White count is trending downwards, abdomen is distended but soft, nontender. She reports that the swelling is no worse today than it has been over the past couple of weeks. Extremely low suspicion for SBP, do not believe that emergent paracentesis is indicated at this time. Given her hyponatremia in the setting of her ascites, she was gently hydrated with 125 cc/h of normal saline. Patient understands that she needs to be hospitalized, would prefer to be admitted to our facility versus transfer elsewhere. I will discuss the case with our hospitalist team to discuss admission for hyponatremia here at our facility. Case discussed with Dr. Villalpando who was agreeable to admission. Medical Records Medical records reviewed: Yes I reviewed the patient's medical records. Lab Data Lab results reviewed: Yes I reviewed the patient's lab results. Lab results narrative: 07/04/20 09:45 Blood Blood Culture - Pending 07/04/20 09:45 Blood Blood Culture - Pending Laboratory Tests Range/Units 07/04/20 07/04/20 07/04/20 09:45 09:45 09:45 WBC (4.4-10.8) 10^3/uL RBC (3.93-5.22) 10^6/uL Hgb (11.2-15.7) g/dL Hct (36.0-46.0) % MCV (80-95) fL MCH (27.0-33.0) pg MCHC (32.0-36.0) % RDW (11.7-14.6) % Plt Count (130-400) 10^3/uL MPV (8.0-11.0) fL Immature Gran % Neutrophils % Lymphocytes % Monocytes % Eosinophils % Basophils % Nucleated RBC % % Absolute Neutrophils (1.2-6.7) 10^3/uL Absolute Lymphocytes (1.2-3.4) 10^3/uL Absolute Monocytes (0.1-0.8) 10^3/uL Absolute Eosinophils (0.0-0.7) 10^3/uL Absolute Basophils (0.0-0.2) 10^3/uL RBC Morphology Hypochromasia Poikilocytosis Macrocytosis PT (9.3-11.0) sec INR (0.9-1.1) APTT (21.0-27.5) sec VBG Lactate (0.6-1.4) mmol/L 1.6 H Sodium (136-145) mmol/L 122 L* Potassium (3.5-5.1) mmol/L 3.7 Chloride (98-107) mmol/L 86 L Carbon Dioxide (21.0-32.0) mmol/L 27.8 Anion Gap (3-11) mmol/L 8.2 BUN (7-18) mg/dL 10 Creatinine (0.55-1.02) mg/dL 0.6 Estimated GFR/1.73 m2 (mL/min/1.73m2) >= 60.00 Glucose (74-106) mg/dL 113 H Calcium (8.5-10.1) mg/dL 8.4 L Magnesium (1.8-2.4) mg/dL 1.6 L Total Bilirubin (0.2-1.0) mg/dL 10.3 H AST (15-37) U/L 100 H ALT (14-59) U/L 38 Alkaline Phosphatase (46-116) U/L 317 H Ammonia (11-32) umol/L 21 Troponin I (<0.06) ng/mL 0.05 Total Protein (6.4-8.2) g/dL 5.2 L Albumin (3.4-5.0) g/dL 2.0 L Ethyl Alcohol (<3) mg/dL Range/Units 07/04/20 07/04/20 07/04/20 09:45 09:45 09:45 WBC (4.4-10.8) 10^3/uL 17.78 H RBC (3.93-5.22) 10^6/uL 3.02 L Hgb (11.2-15.7) g/dL 11.5 Hct (36.0-46.0) % 31.2 L MCV (80-95) fL 103.3 H MCH (27.0-33.0) pg 38.1 H MCHC (32.0-36.0) % 36.9 H RDW (11.7-14.6) % 12.2 Plt Count (130-400) 10^3/uL MPV (8.0-11.0) fL 8.7 Immature Gran % 0.9 Neutrophils % 90.7 Lymphocytes % 2.1 Monocytes % 4.4 Eosinophils % 1.7 Basophils % 0.2 Nucleated RBC % % 0 Absolute Neutrophils (1.2-6.7) 10^3/uL 16.13 H Absolute Lymphocytes (1.2-3.4) 10^3/uL 0.37 L Absolute Monocytes (0.1-0.8) 10^3/uL 0.78 Absolute Eosinophils (0.0-0.7) 10^3/uL 0.30 Absolute Basophils (0.0-0.2) 10^3/uL 0.04 RBC Morphology See below Hypochromasia 2+ Poikilocytosis 1+ Macrocytosis 2+ PT (9.3-11.0) sec 16.1 H INR (0.9-1.1) 1.6 H APTT (21.0-27.5) sec 26.0 VBG Lactate (0.6-1.4) mmol/L Sodium (136-145) mmol/L Potassium (3.5-5.1) mmol/L Chloride (98-107) mmol/L Carbon Dioxide (21.0-32.0) mmol/L Anion Gap (3-11) mmol/L BUN (7-18) mg/dL Creatinine (0.55-1.02) mg/dL Estimated GFR/1.73 m2 (mL/min/1.73m2) Glucose (74-106) mg/dL Calcium (8.5-10.1) mg/dL Magnesium (1.8-2.4) mg/dL Total Bilirubin (0.2-1.0) mg/dL AST (15-37) U/L ALT (14-59) U/L Alkaline Phosphatase (46-116) U/L Ammonia (11-32) umol/L Troponin I (<0.06) ng/mL Total Protein (6.4-8.2) g/dL Albumin (3.4-5.0) g/dL Ethyl Alcohol (<3) mg/dL < 3.0 ECG Data Attestation: I personally reviewed and interpreted this ECG (s) as follows: Interpretation: Please see official report by Dr. Horvath. Sinus rhythm, ventricular rate of 90. No STEMI. HPI General Mode of arrival: EMS. Date/Time Provider Initiated Documentation: 07/04/20 08:51. Limitations to Documentation: no limitations. Information obtained by: patient and EMS. HPI Narrative: This is a 64-year-old female who presents via EMS for abnormal lab values. She denies any significant past medical history to me however reviewing her office visit yesterday I see a problem list that includes weakness, hyponatremia, alcohol abuse, alcohol cirrhosis of liver with ascites, macrocytosis, thrombocytopenia, multiple falls, memory loss, anxiety. Patient states that she has not had any primary care outpatient medical care in the past several years. The diagnosis of liver failure was a new diagnosis with her most recent hospitalization. Patient states that she was told that her white blood cell count was elevated and her sodium level was low. She denies any acute medical concerns or complaints and reports that she feels at baseline. Patient was seen in our ER on 06-16-20, diagnosed with liver failure and acute cholecystitis and subsequently transferred to [facility]. Patient states that she did not have surgery for her gallbladder there, had a prolonged hospital stay, and subsequently discharged. She has since begun taking furosemide and spironolactone as well as initiating the Mediterranean diet. She states her last drink was 06-15-20. She reports chronic abdominal bloating with occasional right sided pain which is her baseline, unchanged from her recent hospitalization. She does report generalized weakness but denies recent fall or illness. She denies any headache, visual changes, chest pain, shortness of breath, cough, vomiting, dysuria, diarrhea or constipation. She denies any pain or swelling in her legs. She reports occasional mild nausea. She reports 2 normal bowel movements this morning. Related Data Home Medications Medication Instructions Recorded Confirmed furosemide 40 mg PO DAILY 07/04/20 07/04/20 spironolactone 100 mg PO DAILY 07/04/20 07/04/20 Allergies Allergy/AdvReac Type Severity Reaction Status Date / Time erythromycin base AdvReac Mild Nausea Unverified 07/04/20 08:57 General ARIANE: 3 Review of Systems Constitutional Constitutional: Denies fatigue, Denies fever(s) and Denies headache(s) Eyes Eyes: Denies change in vision ENT Ears, Nose, Mouth, and Throat: Denies headache(s) and Denies neck pain Cardiovascular Cardiovascular: Denies chest pain and Denies dyspnea Respiratory Respiratory: Denies cough and Denies dyspnea Gastrointestinal Gastrointestinal: Reports abdominal pain, Denies constipation, Denies diarrhea, Reports nausea and Denies vomiting Genitourinary Genitourinary: Denies dysuria Musculoskeletal Musculoskeletal: Denies back pain, Denies neck pain, Denies numbness and Denies tingling Integumentary/Breasts Skin/Breast: Denies rash Neurologic Neurologic: Denies headache(s), Denies numbness, Denies tingling and Reports weakness (Generalized) Psychiatric Psychiatric: Reports anxiety Endocrine Endocrine: Denies fatigue Hematologic/Lymphatic Hematologic/Lymphatic: Denies easy bleeding and Reports easy bruising [facility] Social History Smoking/Tobacco Use Status: Never Smoking risk assessment performed?: Yes Alcohol Intake: former Drug use: Never Substance use type: does not use Do you feel safe at home: Yes Do you feel safe in your relationship?: Yes Exam Const General: cooperative, comfortable, no acute distress and other (thin) Orientation: alert, awake and oriented x3 HENMT Head: normal to inspection, normocephalic and atraumatic Mouth: moist mucous membranes Eyes Alignment and Position: alignment normal Periorbital: periorbital findings normal Eyelids: eyelids normal Conjunctivae: conjunctivae normal Sclera: scleral abnormality bilaterally other (Minimal scleral icterus) Cornea: corneas normal Pupils: PERRL EOM: EOM intact bilaterally Direct ophthalmoscopy: normal light reflex Neck Neck: normal visual inspection, full ROM, trachea midline and supple Resp Effort & Inspection: normal respiratory effort and able to speak in complete sentences Auscultation: clear to auscultation bilaterally and diminished lung sounds bilaterally in the lower lung mcnamara Cardio Rate: regular rate Rhythm: regular rhythm GI Inspection: distended Palpation: soft, not firm, no guarding, hepatomegaly, no pulsatile masses, nontender and ascites Percussion: dullness to percussion Auscultation: normal bowel sounds Back/Spine/Pelvis Back: No back tenderness Skin General skin exam: no rashes or lesions noted Neuro General: patient alert, patient awake, patient oriented x3, moves all extremities and no focal motor deficits Cognition: normal cognition Speech: speech normal Sensory Exam: no sensory deficits noted Extrem General: normal to inspection, full ROM and capillary refill normal Psych Appearance: grossly normal Mental Status: mental status grossly normal
--- NOTE | 2020-07-04 09:00 | DI.RAD_ITS ---
Exam(s) XR CHEST 2V PA LATERAL EXAM: XR CHEST 2V PA LATERAL CLINICAL HISTORY: Fluid retention TECHNIQUE: 2D digital imaging was performed. COMPARISON: CT CT ABDOMEN PELVIS W from 06/16/2020 FINDINGS: MEDIASTINUM: Normal. HEART: Normal. PULMONARY VASCULATURE: Normal. LUNGS: Clear. PLEURAL SPACE: There is a right pleural effusion occupying almost half of the right hemithorax. No l eft pleural effusion is seen. No pneumothorax is present. BONE:Within normal limits for the patient's age. OTHER FINDINGS:Normal. IMPRESSION: Moderately large right pleural effusion. DATA REPOSITORY: RADIATION DOSE DELIVERED:
[2020-07-04] MEDS: Normal Saline 1,000 ML 125 ML IV ×2 (09:42→13:18)
--- NOTE | 2020-07-04 09:45 | DI.US_ITS ---
Exam(s) US ABDOMEN LIMITED EXAM: US ABDOMEN LIMITED CLINICAL HISTORY: RUQ, hx of cirrhosis and ascites TECHNIQUE: Ultrasound abdomen performed using standard protocol. COMPARISON: CT CT ABDOMEN PELVIS W from 06/16/2020 FINDINGS: ABDOMINAL AORTA AND IVC: Visualized portions normal caliber. PANCREAS: Normal where visualized. LIVER: The liver measures 13.4 cm in length. The liver has a nodular contour and is mildly echogenic . The findings are suggestive of hepatic cirrhosis. Hepatopedal flow in the Portal Vein. No hepatic mass. GALLBLADDER: At least 2 isoechoic gallstones are present. There do appear to be smaller echogenic mo bile stones present. There is wall thickening of the gallbladder which appears asymmetric in the fun dus. Gallbladder mass cannot be excluded. There is a large amount of abdominal ascites present. Th ere are a few echogenic in mobile foci along the wall of the gallbladder likely reflecting polyps. BILIARY SYSTEM: Common bile duct measures < 7 mm. No intrahepatic biliary ductal dilation. WALKER'S SIGN: Negative. KIDNEYS: Right kidney is unremarkable. No evidence of renal calculi. No evidence of hydronephrosis. No renal mass or cyst identified. ASCITES: A large amount of abdominal ascites. Lungs: There is a right pleural effusion. IMPRESSION: 1. Findings of hepatic cirrhosis with a large amount of abdominal ascites. 2. Cholelithiasis. No biliary ductal dilatation. 3. Asymmetric wall thickening seen in the fundus of the gallbladder. This can be seen with abdominal ascites but a mass cannot be excluded. 4. Right pleural effusion. 5. Results of this exam have been verbally communicated with provider. DATA REPOSITORY:
[2020-07-04 10:05] LABS: Lactate 1.6 mmol/L (0.6-1.4)
[2020-07-04 10:09] LABS: Abs Immature Grans 0.16 10^3/uL (0.0-0.06); Absolute Basophil Count 0.04 10^3/uL (0.0-0.2); Absolute Lymphocyte Count 0.37 10^3/uL (1.2-3.4); Absolute Monocyte Count 0.78 10^3/uL (0.1-0.8); Basophils % 0.2; Eosinophils % 1.7; HCT 31.2 % (36.0-46.0); HGB 11.5 g/dL (11.2-15.7); Immature Grans % 0.9; Lymphocytes % 2.1; MCH 38.1 pg (27.0-33.0); MCHC 36.9 % (32.0-36.0); MCV 103.3 fL (80-95); MPV 8.7 fL (8.0-11.0); Monocytes % 4.4; Neutrophils % 90.7; Nucleated RBC 0 %; RBC 3.02 10^6/uL (3.93-5.22); RDW 12.2 % (11.7-14.6); RDW-SD 46.5 fL; WBC 17.78 10^3/uL (4.4-10.8)
[2020-07-04 10:19] LABS: Ammonia 21 umol/L (11-32)
[2020-07-04 10:22] LABS: INR 1.6 (0.9-1.1); Prothrombin Time 16.1 sec (9.3-11.0)
[2020-07-04 10:27] LABS: Absolute Neutrophil Count 16.13 10^3/uL (1.2-6.7)
[2020-07-04 10:28] LABS: Diff Comment Diff Reviewed
[2020-07-04 10:29] LABS: Hypochromasia 2+; Macrocytosis 2+; Poikilocytes 1+
[2020-07-04 10:35] LABS: ETHANOL BLOOD < 3.0 mg/dL (<3)
[2020-07-04 10:40] LABS: ALT 38 U/L (14-59); AST 100 U/L (15-37); Alkaline Phosphatase 317 U/L (46-116); Anion Gap 8.2 mmol/L (3-11); BUN 10 mg/dL (7-18); Bilirubin, Total 10.3 mg/dL (0.2-1.0); CO2 27.8 mmol/L (21.0-32.0); CREATININE 0.6 mg/dL (0.55-1.02); Calcium 8.4 mg/dL (8.5-10.1); Chloride 86 mmol/L (98-107); Glucose 113 mg/dL (74-106); Magnesium 1.6 mg/dL (1.8-2.4); Potassium 3.7 mmol/L (3.5-5.1); Total Protein 5.2 g/dL (6.4-8.2); Troponin I 0.05 ng/mL (<0.06)
[2020-07-04 10:42] LABS: Sodium 122 mmol/L (136-145)
[2020-07-04 12:36] LABS: Source Nasal/Nares
--- NOTE | 2020-07-04 14:01 | HPE_ITS ---
Date of service: 07/04/20 Time of Service: 14:02 Assessment and Plan Assessment and plan (1) Hyponatremia: Start date: 07/04/20 Start time: 14:44 Status: Acute Assessment and plan: From liver failure. Will give IVF and try to diuressis, large amount of ascities as below (2) Acute liver failure: Start date: 07/04/20 Start time: 14:40 Status: Acute Assessment and plan: newly diagnosed. presents today with hyponatremia, worsening abdominal ascities and u/s findings revealing IMPRESSION: 1. Findings of hepatic cirrhosis with a large amount of abdominal ascites. 2. Cholelithiasis. No biliary ductal dilatation. 3. Asymmetric wall thickening seen in the fundus of the gallbladder. This can be seen with abdominal ascites but a mass cannot be excluded. 4. Right pleural effusion. 5. Results of this exam have been verbally communicated with provider. Recommend MRI with/without contrast Surgery consulted for possible paracentesis until then 150 spironolactone and 40 lasix IVP no known reasons for Leukocytosis, bc sent, afebrile continue to monitor. (3) Leukocytosis: Start date: 07/04/20 Start time: 14:44 Status: Acute Assessment and plan: From unknown source though question SBP also mass seen on u/s Will ask if MRCP appropriate (4) Gallbladder mass: Start date: 07/04/20 Start time: 14:45 Status: Acute Assessment and plan: as above (5) Discharge planning issues: Start date: 07/04/20 Start time: 14:45 Status: Acute Assessment and plan: Possibly to tertiary center if patient requires higher level vs home when medically ready. (6) DVT prophylaxis: Start date: 07/04/20 Start time: 14:46 Status: Acute Assessment and plan: 2.5 q 12 subcut heparin discussed with Dr. Villalpando History of Present Illness History of Present Illness Chief Complaint: Hyponatremia, Ascities Narrative: 64 y.o female with PMH of Alcohol abuse, cirrhosis recently diagnosis, she was discharged from [facility] on 06/20/20. She reports here today after having blood work through her PCP yesterday. WBC elevated to 17.78, sodium 122, chloride 86, mag 1.6, Alk phos 317, she INR 1.6 and lactate 1.6. She has been asked to be admitted to [facility] for further management. U/S revealing large amount ascities. Patient states she has been having increasing fluid amounts. She is getting NS at 125 due to hyponatremia with repeat bmp at 6 hours. She is jaundice and icteric. MELD score 29, Surgery to evaluate for possible paracentesis. Will increase spironolactone and give IVP lasix. She denies Cp, SOB, N/V/D. Question of SBP with leukocytosis however she had this worked up at [facility] and was found to no be remarkable. Will admit for further managment. Review of Systems All systems reviewed & are unremarkable except as noted in HPI and below PFSH Medical History Acute cholecystitis Acute liver failure Hyponatremia Leukocytosis Social History Smoking/Tobacco Use Status: Never Smoking risk assessment performed?: Yes Alcohol Intake: former Drug use: Never Substance use type: does not use Do you feel safe at home: Yes Do you feel safe in your relationship?: Yes Meds Allergies and Home Medications Allergies Allergy/AdvReac Type Severity Reaction Status Date / Time erythromycin base AdvReac Mild Nausea Unverified 07/04/20 08:57 Home Medications Medication Instructions Recorded Confirmed Type furosemide 40 mg PO DAILY 07/04/20 07/04/20 History spironolactone 100 mg PO DAILY 07/04/20 07/04/20 History Exam Const General: cooperative, not healthy appearing and ill appearing chronically Nutritional Appearance: malnourished Orientation: alert, awake and oriented x3 HENMT Head: normocephalic and atraumatic Eyes Conjunctivae: abnormal conjunctivae and other (icteric) Sclera: scleral abnormality (icteric) Pupils: PERRL EOM: EOM intact bilaterally Neck Neck: normal visual inspection and no JVD Thyroid: thyroid normal Lymphatic: no lymphadenopathy noted Resp Effort & Inspection: normal respiratory effort and able to speak in complete sentences Auscultation: clear to auscultation bilaterally Cardio Jugular venous pressure: no JVD Rate: regular rate Rhythm: regular rhythm Heart Sounds: S1 normal and S2 normal GI Inspection: abnormal to inspection, edema, distended and other (large round) Percussion: fluid wave Auscultation: hyperactive bowel sounds General: deferred Back/Spine/Pelvis Back: no CVA tenderness Thoracic/Lumbar Spine: thoracic and lumbar spine normal to inspection Skin General skin exam: no rashes or lesions noted and jaundice Neuro General: patient alert, patient awake and patient oriented x3 Cognition: normal cognition Extrem General: abnormal to inspection, full ROM and pedal edema present Right lower extremity: edema Details: pitting and 3+ Left lower extremity: edema Details: pitting and 2+ Psych Appearance: other Mental Status: mental status grossly normal Speech and Movement: speech and movement normal Mood: congruent mood Results Labs Result diagrams: 07/04/20 09:45 07/04/20 09:45 Labs: Laboratory Results - last 24 hr 07/04/20 07/04/20 07/04/20 09:45 09:45 09:45 WBC RBC Hgb Hct MCV MCH MCHC RDW Plt Count MPV Immature Gran % Neutrophils % Lymphocytes % Monocytes % Eosinophils % Basophils % Nucleated RBC % Absolute Neutrophils Absolute Lymphocytes Absolute Monocytes Absolute Eosinophils Absolute Basophils RBC Morphology Hypochromasia Poikilocytosis Macrocytosis PT INR APTT VBG Lactate 1.6 H Sodium 122 L* Potassium 3.7 Chloride 86 L Carbon Dioxide 27.8 Anion Gap 8.2 BUN 10 Creatinine 0.6 Estimated GFR/1.73 m2 >= 60.00 Glucose 113 H Calcium 8.4 L Magnesium 1.6 L Total Bilirubin 10.3 H AST 100 H ALT 38 Alkaline Phosphatase 317 H Ammonia 21 Troponin I 0.05 Total Protein 5.2 L Albumin 2.0 L Ethyl Alcohol COVID-19 Source 07/04/20 07/04/20 07/04/20 09:45 09:45 09:45 WBC 17.78 H RBC 3.02 L Hgb 11.5 Hct 31.2 L MCV 103.3 H MCH 38.1 H MCHC 36.9 H RDW 12.2 Plt Count MPV 8.7 Immature Gran % 0.9 Neutrophils % 90.7 Lymphocytes % 2.1 Monocytes % 4.4 Eosinophils % 1.7 Basophils % 0.2 Nucleated RBC % 0 Absolute Neutrophils 16.13 H Absolute Lymphocytes 0.37 L Absolute Monocytes 0.78 Absolute Eosinophils 0.30 Absolute Basophils 0.04 RBC Morphology See below Hypochromasia 2+ Poikilocytosis 1+ Macrocytosis 2+ PT 16.1 H INR 1.6 H APTT 26.0 VBG Lactate Sodium Potassium Chloride Carbon Dioxide Anion Gap BUN Creatinine Estimated GFR/1.73 m2 Glucose Calcium Magnesium Total Bilirubin AST ALT Alkaline Phosphatase Ammonia Troponin I Total Protein Albumin Ethyl Alcohol < 3.0 COVID-19 Source 07/04/20 12:30 WBC RBC Hgb Hct MCV MCH MCHC RDW Plt Count MPV Immature Gran % Neutrophils % Lymphocytes % Monocytes % Eosinophils % Basophils % Nucleated RBC % Absolute Neutrophils Absolute Lymphocytes Absolute Monocytes Absolute Eosinophils Absolute Basophils RBC Morphology Hypochromasia Poikilocytosis Macrocytosis PT INR APTT VBG Lactate Sodium Potassium Chloride Carbon Dioxide Anion Gap BUN Creatinine Estimated GFR/1.73 m2 Glucose Calcium Magnesium Total Bilirubin AST ALT Alkaline Phosphatase Ammonia Troponin I Total Protein Albumin Ethyl Alcohol COVID-19 Source Nasal/nares Last Vital Signs Temp 36.7 C 07/04/20 13:22 Pulse 81 07/04/20 13:22 Resp 16 07/04/20 13:22 BP 100/58 L 07/04/20 13:58 Pulse Ox 99 07/04/20 13:22 COVID-19 Screening Have you, or household traveled for leisure in last 14 days?: No Had IN PERSON contact w/suspected or confirmed C-19 person: No
[2020-07-04] MEDS: Spironolactone 50 MG TAB 150 MG PO (14:38)
[2020-07-04] MEDS: MAGNESIUM SULFATE 4 GM/100 ML BAG IVPB (14:38)
[2020-07-04] MEDS: Furosemide 40 MG/4 ML VIAL IVP (14:38)
[2020-07-04 15:45] LABS: COVID-19 PCR Negative (Negative)
[2020-07-04 17:16] LABS: BUN 11 mg/dL (7-18); Calcium 7.7 mg/dL (8.5-10.1)
[2020-07-04 17:56] LABS: Anion Gap 7.9 mmol/L (3-11); CO2 25.1 mmol/L (21.0-32.0); CREATININE 0.5 mg/dL (0.55-1.02); Chloride 88 mmol/L (98-107); Glucose 137 mg/dL (74-106); Potassium 3.1 mmol/L (3.5-5.1)
--- NOTE | 2020-07-04 18:00 | PAPNONF_PTH ---
PATIENT: Dorothea Jade LOC: [id number] AGE/SX: 64/F ROOM: 228 RE07/04/[address]: Justin Villalpando MD : [id number] BED: A DIS: 07/07/2020 SPEC #: [id number] RECD: 07/05/20 13:03 STATUS: DIANNE REQ #: [id number] JOB: 07/04/20 18:[address]: Justin Villalpando DEPT: [facility] RECD BY: Zuly Yañez ENTERED: 07/05/20 13:04 SP TYPE: JOHNATHON DUARTE DR: Sue Bhatia Laura M In[facility] Dan Wyand Tissues: 1 - BODY FLUID CYTO(NOT S/U/N/EM)[facility] Procedures: BODY FLUID CYTO(NOT SPU/UR/NIP/ENDOM)[facility] Comments: [id number] (TOTAL VOLUME = 65 ml's, SENT FRESH)
[2020-07-04 18:17] LABS: Sodium 121 mmol/L (136-145)
--- NOTE | 2020-07-04 18:32 | W.PM.OP ---
Date of service: 07/04/20 Time of Service: 18:32 Operative Note Operative Note DATE OF PROCEDURE: 07/04/20 PRE-OP DIAGNOSIS: abdominal ascites POST-OP DIAGNOSIS: same PROCEDURE: paracentisis SURGEON: Deana Alfred ANESTHESIA TYPE: Local By Surgeon Refer to Anesthesia Record ESTIMATED BLOOD LOSS: 1 PATHOLOGY: other Patient was transported to: no change Patient's condition: stable Findings: 2500cc saffron colored clear fluid Procedure Description: The patient is brought to the procedure room and placed in the supine position. Placement chosen on top in the right upper quadrant. A time-out is done. Ultrasound is used to localize the pocket. The area is prepped and draped in the usual sterile fashion using a ChloraPrep scrub solution. 20 cc's of 1% Lidocaine with epinephrine is used for local anesthetization. The abdomen is punctured and the catheter is inserted. 2500 liters of bright yellow fluid is evacuated today. The catheter is removed. Pressure dressing is applied. Suture is placed. The patient tolerated the procedure well without complication.
[2020-07-04] MEDS: POTASSIUM CHLORIDE 10 MEQ/100 ML BAG 50 MEQ IV ×2 (19:40→22:14)
[2020-07-04 20:58] LABS: Clarity Clear; Nucleated Cells 58 uL (0); Source Peritoneal
[2020-07-04 21:50] LABS: Mononuclear Cells 87 %; Polynuclear Cells 13 %
[2020-07-04 22:27] LABS: Source: Peritoneal; pH Body Fluid 7
--- NOTE | 2020-07-04 22:48 | SCONE_ITS ---
Date of service: 07/04/20 Time of Service: 22:48 Assessment and Plan Assessment and plan (1) Gallbladder mass: Status: Acute (2) Leukocytosis: Status: Acute (3) Hyponatremia: Status: Acute (4) Acute liver failure: Status: Acute (5) History of ETOH abuse: Status: Acute (6) Muscle wasting: Status: Acute (7) Abnormal weight loss: Status: Acute (8) Advanced hepatic cirrhosis: Status: Acute Assessment and plan: She does have longstanding cirrhosis as evident by changes on her CT scan. Longstanding cirrhosis is associated with primary hepatic malignancy and also cholangiocarcinoma. (9) Gallstones: Status: Acute (10) Portal hypertension with esophageal varices: Status: Acute (11) Abdominal ascites: Status: Acute Assessment and plan: 2500cc removed. sent for fluids studies/cultures/cytolgy/CEA & AFP. MRI/MRCP in am to characterize mass. Very poor prognosis. Due to her functional status and disease, patient is a very poor candidate for chemo or radiation. Palliative care should be considered. We will follow, but direct management as per the hospitalist. Treatment for stage 4 cholangiocarcinoma can include Pemayre. Side effects are usually ocular, electrolyte abnormalities, cutaneous calcinosis and calciphylaxis, UTI, bowel obstruction, hyponatremia, cholangitis, TWILA, pleural effusions. And is seems to be well-tolerated. If patient bile duct is being occluded by tumor, palliative stenting with the ERCP to relieve the jaundice may be indicated. This tumor can be very painful. Nerve blocks versus nerve ablation may be considered for palliative pain control. 75 minutes was spent doing this consult today. Discussing the case with hospitalist, reviewing reviewing her CT scans, reviewing her labs including CBC, comp, INR. 30 minutes was spent performing the procedure as well. History of Present Illness Narrative: from 07/04 hx: recent diagnosis of liver failure, presenting to the ER today for abnormal laboratory values obtained yesterday. I was able to review the discharge summary and medical records from [facility]. Patient was discharged on 06-20-20. She had a surgical consultation, low suspicion for acute cholecystitis. Abdominal pain has resolved completely and a HIDA scan was performed and was negative the diagnostic paracentesis performed at our facility was unremarkable. Patient was started on diuretics. Her blood pressure was consistently low in the 90s over 50s. She did establish a local primary care provider and referred to GI as an outpatient. Patient was at [facility] 2 weeks ago. She was diagnosed with cirrhosis. I talked her today had done a CT or MRI to see if there is any masses in the liver she said they had and that she did not have any masses or tumors. She says she is no longer drinking alcohol. She does have tattoos. I do not know if she has been evaluated for hep C, I am assuming so. She had a paracentesis at [facility]. And remove fluid. She thinks it was approxi mately 10 days ago. Her abdomen has filled back up with fluid. She is not on any blood thinners currently. She was not given any prophylactic antibiotics. She had no problems tolerating the Last time. I have no access to her records at [facility] and I do not know what tests and studies have been done already. The fluid to be sent for culture, cytology, routine fluid studies, CEA and AFP I did discuss the case with Anabelle Ramos. In light of there being a possible mass in the gallbladder. MRI and MRCP is definitely warranted. I will also order a CEA and alpha. Fetoprotein. Discussed on physical exam she has obvious severe muscle wasting. Her lower extremities are edematous. She has severe ascites and signs of long-term ascites including heparin-induced she does not have any hernias. Her abdomen is tense and painful. I think this is more from the pressure of the fluid and not from peritonitis from any underlying organ pathology or from SP I did review her chart and her radiological studies and labs today. A do not have an explanation as to why she has the elevated white count for what this signifies. Informed consent is obtained explaining risks benefits of paracentesis including bleeding infection damage to internal organs risks of complications from the local anesthetics and prolonged fluid leak. Because of her low protein and low muscle status, a stitch was placed post procedure, which removed and 1 to 2- week. Consults Consult date: 07/04/20 [facility] Medical History Acute cholecystitis Acute liver failure Hyponatremia Leukocytosis Social History Smoking/Tobacco Use Status: Never Smoking risk assessment performed?: Yes Alcohol Intake: former Drug use: Never Substance use type: does not use Do you feel safe at home: Yes Do you feel safe in your relationship?: Yes Exam Const General: cooperative, healthy appearing, comfortable, no acute distress, well developed and well groomed Nutritional Appearance: average body habitus and well nourished Orientation: alert, awake and oriented x3 [facility] Head: normal to inspection, normocephalic and atraumatic Ears: hearing grossly normal bilaterally and external ears normal General nose exam: external nose normal Face and sinus: normal facial exam and sinuses nontender Mouth: oral mucosae normal, lip normal, tongue normal and moist mucous membranes Teeth and gingiva: fair dentition Eyes General: appearance normal, both eyes and all related structures Sclera: sclerae normal Pupils: PERRL Other: Patient has this jaundice and is icteric. She is temporal muscle wast ing. She appears frail and weak. Neck Neck: normal visual inspection and full ROM Chest Chest: normal inspection of the chest Resp Effort & Inspection: normal respiratory effort, able to speak in complete sentences, no cough, no nasal flaring, not tachypneic and no use of accessory muscles Auscultation: clear to auscultation bilaterally, no rales, no rhonchi and no wheezes Cardio Jugular venous pressure: no JVD Rate: regular rate Rhythm: regular rhythm GI Inspection: no edema, distended, striae and caput medusae present Palpation: firm, hepatomegaly, no masses, tender (Diffuse) and ascites Percussion: fluid wave Auscultation: normal bowel sounds Skin Other: Very dry flaky skin. Multiple tattoos and piercings Neuro General: patient alert, patient oriented x3, oriented, moves all extremities and no focal motor deficits Cognition: normal cognition Speech: speech normal Motor: no tremors Sensory Exam: no sensory deficits noted Extrem General: pedal edema present and no cyanosis Other: She has lower extremity edema. She has severe muscle wasting throughout. I did not appreciate a liver flap at the time of my exam. Psych Appearance: well kempt Mental Status: mental status grossly normal Speech and Movement: speech and movement normal Affect: normal affect Results Last Vital Signs Temp 36.7 C 07/04/20 13:22 Pulse 90 07/04/20 15:00 Resp 16 07/04/20 13:22 BP 100/58 L 07/04/20 13:58 Pulse Ox 99 07/04/20 13:22 Labs Result diagrams: 07/05/20 06:35 07/05/20 06:35 Labs: Laboratory Results - last 24 hr 07/04/20 07/04/20 07/04/20 09:45 09:45 09:45 WBC RBC Hgb Hct MCV MCH MCHC RDW Plt Count MPV Immature Gran % Neutrophils % Lymphocytes % Monocytes % Eosinophils % Basophils % Nucleated RBC % Absolute Neutrophils Absolute Lymphocytes Absolute Monocytes Absolute Eosinophils Absolute Basophils RBC Morphology Hypochromasia Poikilocytosis Macrocytosis PT INR APTT VBG Lactate 1.6 H Sodium 122 L* Potassium 3.7 Chloride 86 L Carbon Dioxide 27.8 Anion Gap 8.2 BUN 10 Creatinine 0.6 Estimated GFR/1.73 m2 >= 60.00 Glucose 113 H Calcium 8.4 L Magnesium 1.6 L Total Bilirubin 10.3 H AST 100 H ALT 38 Alkaline Phosphatase 317 H Ammonia 21 Troponin I 0.05 Total Protein 5.2 L Albumin 2.0 L Fluid Type Fluid Source Fluid Color Fluid Clarity Fluid pH Fluid WBC Fld Polynuclear WBCs % Fluid Mononuclear Cell Fluid Other Cells Fluid Albumin Fluid Lipase Ethyl Alcohol COVID-19 Source SARS-CoV-2 (PCR) Path Cons Comment 07/04/20 07/04/20 07/04/20 09:45 09:45 09:45 WBC 17.78 H RBC 3.02 L Hgb 11.5 Hct 31.2 L MCV 103.3 H MCH 38.1 H MCHC 36.9 H RDW 12.2 Plt Count MPV 8.7 Immature Gran % 0.9 Neutrophils % 90.7 Lymphocytes % 2.1 Monocytes % 4.4 Eosinophils % 1.7 Basophils % 0.2 Nucleated RBC % 0 Absolute Neutrophils 16.13 H Absolute Lymphocytes 0.37 L Absolute Monocytes 0.78 Absolute Eosinophils 0.30 Absolute Basophils 0.04 RBC Morphology See below Hypochromasia 2+ Poikilocytosis 1+ Macrocytosis 2+ PT 16.1 H INR 1.6 H APTT 26.0 VBG Lactate Sodium Potassium Chloride Carbon Dioxide Anion Gap BUN Creatinine Estimated GFR/1.73 m2 Glucose Calcium Magnesium Total Bilirubin AST ALT Alkaline Phosphatase Ammonia Troponin I Total Protein Albumin Fluid Type Fluid Source Fluid Color Fluid Clarity Fluid pH Fluid WBC Fld Polynuclear WBCs % Fluid Mononuclear Cell Fluid Other Cells Fluid Albumin Fluid Lipase Ethyl Alcohol < 3.0 COVID-19 Source SARS-CoV-2 (PCR) Path Cons Comment 07/04/20 07/04/20 07/04/20 12:30 17:32 18:28 WBC RBC Hgb Hct MCV MCH MCHC RDW Plt Count MPV Immature Gran % Neutrophils % Lymphocytes % Monocytes % Eosinophils % Basophils % Nucleated RBC % Absolute Neutrophils Absolute Lymphocytes Absolute Monocytes Absolute Eosinophils Absolute Basophils RBC Morphology Hypochromasia Poikilocytosis Macrocytosis PT INR APTT VBG Lactate Sodium 121 L* Potassium 3.1 L Chloride 88 L Carbon Dioxide 25.1 Anion Gap 7.9 BUN 11 Creatinine 0.5 L Estimated GFR/1.73 m2 >= 60.00 Glucose 137 H Calcium 7.7 L Magnesium Total Bilirubin AST ALT Alkaline Phosphatase Ammonia Troponin I Total Protein Albumin Fluid Type Fluid Source Fluid Color Fluid Clarity Fluid pH Fluid WBC Fld Polynuclear WBCs % Cancelled Fluid Mononuclear Cell Cancelled Fluid Other Cells Cancelled Fluid Albumin Fluid Lipase Ethyl Alcohol COVID-19 Source Nasal/nares SARS-CoV-2 (PCR) Negative Path Cons Comment Cancelled 07/04/20 07/04/20 07/04/20 19:00 19:00 19:59 WBC RBC Hgb Hct MCV MCH MCHC RDW Plt Count MPV Immature Gran % Neutrophils % Lymphocytes % Monocytes % Eosinophils % Basophils % Nucleated RBC % Absolute Neutrophils Absolute Lymphocytes Absolute Monocytes Absolute Eosinophils Absolute Basophils RBC Morphology Hypochromasia Poikilocytosis Macrocytosis PT INR APTT VBG Lactate Sodium Potassium Chloride Carbon Dioxide Anion Gap BUN Creatinine Estimated GFR/1.73 m2 Glucose Calcium Magnesium Total Bilirubin AST ALT Alkaline Phosphatase Ammonia Troponin I Total Protein Albumin Fluid Type Fluid Source Peritoneal Peritoneal Cancelled Fluid Color Yellow Fluid Clarity Clear Fluid pH 7 Cancelled Fluid WBC 58 Fld Polynuclear WBCs % 13 Fluid Mononuclear Cell 87 Fluid Other Cells Fluid Albumin Fluid Lipase Ethyl Alcohol COVID-19 Source SARS-CoV-2 (PCR) Path Cons Comment 07/04/20 19:59 WBC RBC Hgb Hct MCV MCH MCHC RDW Plt Count MPV Immature Gran % Neutrophils % Lymphocytes % Monocytes % Eosinophils % Basophils % Nucleated RBC % Absolute Neutrophils Absolute Lymphocytes Absolute Monocytes Absolute Eosinophils Absolute Basophils RBC Morphology Hypochromasia Poikilocytosis Macrocytosis PT INR APTT VBG Lactate Sodium Potassium Chloride Carbon Dioxide Anion Gap BUN Creatinine Estimated GFR/1.73 m2 Glucose Calcium Magnesium Total Bilirubin AST ALT Alkaline Phosphatase Ammonia Troponin I Total Protein Albumin Fluid Type Cancelled Fluid Source Fluid Color Fluid Clarity Fluid pH Fluid WBC Fld Polynuclear WBCs % Fluid Mononuclear Cell Fluid Other Cells Fluid Albumin Cancelled Fluid Lipase Cancelled Ethyl Alcohol COVID-19 Source SARS-CoV-2 (PCR) Path Cons Comment
--- NOTE | 2020-07-05 | DI.MRI_ITS ---
Exam(s) MR ABDOMEN WO/W EXAM: MR ABDOMEN WO/W CLINICAL HISTORY: r/o gallbladder fundus mass, TECHNIQUE: Multiplanar multisequence MRA of the Abdomen was performed. CONTRAST MATERIAL: IV Contrast: 7 mL of Dotarem contrast administered. COMPARISON: CT CT ABDOMEN PELVIS W from 06/16/2020 US US ABDOMEN LIMITED from 07/04/2020 FINDINGS: Liver: No hepatic mass is identified. There is no intrahepatic biliary ductal dilatation. Following contrast administration no intrahepatic mass is seen. Pancreas: Unremarkable. Gallbladderand Bile Ducts: There are gallstones present. The largest measures 1.9 cm. There are num erous small gallstones noted. The gallbladder wall is thin. No gallbladder wall thickening or sol s seen. There is no biliary ductal dilatation. There are no filling defects to suggest choledocholi thiasis. Adrenals: Unremarkable. Kidneys: Unremarkable. Spleen: The spleen is enlarged measuring 13 cm. Aorta: Unremarkable. Soft Tissues: Unremarkable. Bone: Unremarkable. Lungs: There is a large right pleural effusion and a small left pleural effusion. Lymph Nodes: Unremarkable. Peritoneal cavity: There is a large amount of abdominal ascites. IMPRESSION: 1. Cholelithiasis. No choledocholithiasis or biliary ductal dilatation. 2. No evidence of gallbladder wall thickening or mass. 3. Large right effusion and small left pleural effusion. 4. Large abdominal ascites. 5. Splenomegaly. DATA REPOSITORY:
[2020-07-05] MEDS: Normal Saline 1,000 ML 125 ML IV (04:31)
[2020-07-05 07:05] LABS: Abs Immature Grans 0.11 10^3/uL (0.0-0.06); Absolute Basophil Count 0.03 10^3/uL (0.0-0.2); Absolute Lymphocyte Count 0.39 10^3/uL (1.2-3.4); Absolute Monocyte Count 0.69 10^3/uL (0.1-0.8); Basophils % 0.2; Eosinophils % 2.1; HCT 27.4 % (36.0-46.0); HGB 10.1 g/dL (11.2-15.7); Immature Grans % 0.8; Lymphocytes % 2.8; MCH 37.8 pg (27.0-33.0); MCHC 36.9 % (32.0-36.0); MCV 102.6 fL (80-95); MPV 8.8 fL (8.0-11.0); Monocytes % 4.9; Neutrophils % 89.2; Nucleated RBC 0 %; Platelet Count 96 10^3/uL (130-400); RBC 2.67 10^6/uL (3.93-5.22); RDW 12.2 % (11.7-14.6); RDW-SD 45.5 fL; WBC 14.01 10^3/uL (4.4-10.8)
[2020-07-05 07:13] LABS: INR 1.5 (0.9-1.1); Prothrombin Time 15.4 sec (9.3-11.0)
[2020-07-05 07:14] LABS: Absolute Eosinophil Count 0.29 10^3/uL (0.0-0.7)
[2020-07-05 07:22] VITALS: PULSE 82
[2020-07-05 07:23] LABS: ALT 34 U/L (14-59); AST 72 U/L (15-37); Albumin 1.8 g/dL (3.4-5.0); Alkaline Phosphatase 283 U/L (46-116); Anion Gap 6.7 mmol/L (3-11); BUN 10 mg/dL (7-18); Bilirubin, Total 9.1 mg/dL (0.2-1.0); CO2 26.3 mmol/L (21.0-32.0); CREATININE 0.6 mg/dL (0.55-1.02); Calcium 7.6 mg/dL (8.5-10.1); Chloride 90 mmol/L (98-107); Glucose 104 mg/dL (74-106); Magnesium 2.4 mg/dL (1.8-2.4); Potassium 3.4 mmol/L (3.5-5.1); Total Protein 4.6 g/dL (6.4-8.2)
[2020-07-05 07:30] VITALS: BP 88/46; PULSE 81; RESP 16; TEMP 35.6; O2SAT 93
[2020-07-05 07:33] LABS: Sodium 123 mmol/L (136-145)
[2020-07-05] MEDS: Spironolactone 50 MG TAB 100 MG PO ×2 (07:56→09:49)
[2020-07-05] MEDS: Potassium Chloride 20 MEQ TABCR 40 MEQ PO (07:56)
[2020-07-05] MEDS: Furosemide 40 MG TAB PO (07:56)
[2020-07-05 09:37] LABS: Bilirubin Moderate (Negative); Blood Negative (Negative); Clarity Clear (Clear); Glucose Negative (Negative); Ketones Negative (Negative); Leukocyte Esterase Negative (Negative); Nitrite Negative (Negative); Specific Gravity >= 1.030 (1.005-1.025); pH 5.5 (5-8)
--- NOTE | 2020-07-05 10:00 | PT.INIE ---
Date of service: 07/05/20 Time of Service: 10:00 PT Notes Visit Reasons: Hyponatremia, ascities Physical Therapy Inpatient Initial Evaluation Date: 07/05/2020 Referring Doctor: Hattie Romo NP PT Orders: PT CONSULT: Eval/treat. Precautions: Fall. Standard. Activity as tolerated. Patient Profile/Admitting Diagnosis: Dorothea is a 64-year-old female who presented to the ED on 07/04/2020 with abnormal laboratory results obtained the previous day prior to ED admission. Patient is diagnosed with hyponatremia, acute liver failure, leukocytosis, and gallbladder mass and is status post paracentesis on postoperative day 1. PMHX: Medical History Acute cholecystitis Acute liver failure Hyponatremia Leukocytosis Social History/Home Situation: Lives with in a private home with 3 steps to enter with bilateral rails. Independent with all aspects of ADLs prior to admission although she having hard time getting up from a chair and has been holding onto furniture while she walks inside the house. Equipment Owned/DME: Front-wheeled walker, single-point cane Subjective: Agreeable to PT consult. Denies pain, headache, chest pain however reports increased fullness and heaviness in her tummy. States that they did drain her abdominal area of fluid but she feels like it is starting to feel back in. Indicates that she is having an MRI scheduled for this afternoon. Elaborates that she fell about 2 weeks, no other falls in the past year. Objective: General Observation: Asthenic. IV in left UE. Abdominal swelling noted. Telemetry monitoring in place. Mental Status: Alert and oriented as to person, place, time, and purpose. Able to pay attention, focus, and respond appropriately. Pain: 0/10 ROM: Right Upper Extremity: Shoulder Flexion WFL. Shoulder abduction WFL. Shoulder ER/IR WFL. Elbow flexion WFL. Forearm pronation/supination WFL. Wrist flexion WFL. Opening and closing of hand WFL. Left Upper Extremity: Shoulder Flexion WFL. Shoulder abduction WFL. Shoulder ER/IR WFL. Elbow flexion WFL. Forearm pronation/supination WFL. Wrist flexion WFL. Opening and closing of hand WFL. Right Lower Extremity: Hip flexion WFL. Hip abduction WFL. Hip ER/IR WFL. Knee flexion WFL. Knee extension. Ankle dorsiflexion/eversion WFL. Ankle plantarflexion/inversion WFL. Left Lower Extremity: Hip flexion WFL. Hip abduction WFL. Hip ER/IR WFL. Knee flexion WFL. Knee extension. Ankle dorsiflexion WFL. Ankle plantarflexion WFL. Strength: Right Upper Extremity: Shoulder flexors 4-/5. Shoulder abductors 4-/5. Shoulder ER 4-/5. Shoulder IR 4-/5. Forearm pronators 4-/5. Forearm supinators 4-/5. Elbow flexors 4-/5. Elbow extensors 4-/5. Loading Machine Adjuster strong. Left Upper Extremity: Shoulder flexors 4-/5. Shoulder abductors 4-/5. Shoulder ER 4-/5. Shoulder IR 4-/5. Forearm pronators 4-/5. Forearm supinators 4-/5. Elbow flexors 4-/5. Elbow extensors 4-/5. Loading Machine Adjuster strong. Right Lower Extremity: Hip flexors 3+/5. Hip abductors 3+5/5. Hip external rotators 3+/5. Hip internal rotators 3+/5. Knee flexors 3+/5. Knee extensors 3+/5. Ankle dorsiflexors/evertors 4-/5. Ankle plantarflexors/invertors 4-/5. Left Lower Extremity: Hip flexors 3+/5. Hip abductors 3+5/5. Hip external rotators 3+/5. Hip internal rotators 3+/5. Knee flexors 3+/5. Knee extensors 3+/5. Ankle dorsiflexors/evertors 4-/5. Ankle plantarflexors/invertors 4-/5. Bed Mobility/Transfers: Sit to stand minimal assist Stand to sit contact-guard assist Chair to toilet seat contact-guard assist Toilet seat to chair contact-guard assist Gait: Distance of 20 feet x 2 requiring contact guard assist with patient trying to hold onto furniture. Samantha decreased. Step height decreased. Step length decreased. Balance: Static Sitting: Normal Dynamic Sitting: Normal Static Standing: Fair Dynamic Standing: Fair Special Tests: Mobility Limitations Standardized Measure [facility] 6 clicks Basic Mobility Inpatient Short Form: Raw Score: 14 CMS Score: 61% deficit Informed Consent/Education: Patient was instructed in purpose of PT consult and plan of care. Agreeable to proceed with established PT POC to achieve personal goals. Assessment: Dorothea demonstrates functional mobility decline requiring the use of a single point cane for all mobility ADL performance, generalized weakness, difficulty with walking, and increased fall risk due to admitting diagnosis. Patient presents with clinical signs and symptoms consistent with current/admitting diagnoses that have resulted to mobility limitations, gait instability, generalized weakness, and impairment of motor control as demonstrated by the following impairment level findings: 1. Decreased strength to BLE/LE major muscle groups 2. Impaired standing balance/toerlance 3. Impaired activity tolerance Impairments are contributing to the following functional limitations: 1. Increased dependence with transfers 2. Inability to safely ambulate without assistive device and physical assistance 3. Increase completion time for mobility ADL performance 4. Increased fall risk 5. Inability to negotiate steps alone safely 6. Inability to return to prior living environment at this time Patient is assessed as a 53461 moderate complexity based on the following: History: 64-year-old female with past medical history as indicated above Examination: Demonstrable impairment in strength, balance, and mobility level with underlying impairments and functional limitations as exhibited above as well as deficit score of involvement 61% utilizing the [facility] Mobility Inpatient Short Form Presentation: Evolving Decision Makin moderate complexity Goals: Goals X1 week 1. Supine-Sit independent 2. Sit-Supine independent 3. Sit-Stand independent 4. Stand-Sit independent 5. Bed-Chair independent 6. Chair-Bed independent 7. Independent gait on level surface with use of single-point cane for at least 300 feet without report of pain nor dyspnea 8. Independent stair negotiation while holding onto B rails for at least 3 steps without report of pain nor dyspnea 9. Independent with home exercise program 10. Good static and dynamic standing balance/tolerance Plan of Care/Treatment Plan: 1-2x/day, 7 days/week x 1 week. Plan of care has been reviewed with the STRAP CUTTING MACHINE OPERATOR providing the service under Physical Therapy direction. Initiate Physical Therapy intervention for strengthening, bed mobility, transfers, gait, stairs, balance training, and use of assistive device. DISCHARGE RECOMMENDATIONS: SNF versus PT depending on trajectory of medical management. TREATMENT CODE/TIME: 60201 x 20 minutes, 39872 x 11 minutes beginning at 10:00 AM. Thank you for the opportunity to participate in the care of this patient. Cele Leiva PT, DPT, CLT [facility] [place], [place]
--- NOTE | 2020-07-05 10:04 | PDOC.CMIN ---
- If Service Date Differs Date of service: 07/05/20 Time of Service: 10:04 Care Management Initial Assess REASON FOR HOSPITALIZATION:: Hyponatremia PAST MEDICAL HISTORY/PAST SURGICAL HISTORY:: Medical History . Acute cholecystitis. Acute liver failure. Hyponatremia. Leukocytosis PREVIOUS FUNCTIONAL STATUS/SOCIAL/FAMILY SUPPORTS:: Taty lives in a single family home in [place], [place] with her [place]. They have 2 daughters who live locally and are supportive. 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 Taty needs assistance with getting out of bed and her chair but only uses a cane occasionally for ambulation. CURRENT FUNCTIONAL STATUS:: Taty was lying on a stretcher waiting to go to diagnostic imaging when CM met with her. She was pleasant and interacted appropriately with CM. She informed CM that she had a lot of fluid removed from her abdomen last night but now feels it may be re-accumulating. ADVANCE DIRECTIVES:: none on file Has patient been provided with info about the portal/API?: Yes Did the patient sign up for the portal?: No CODE STATUS:: Full Code INSURANCE COVERAGE / FINANCIAL ISSUES:: Medicare. AARP CURRENT HOME/COMMUNITY SERVICES/EQUIPMENT:: uses a cane occasionally PRIMARY CARE PHYSICIAN:: Sue Bhatia POTENTIAL DISCHARGE NEEDS:: Follow up with PCP and plan of care PATIENT/FAMILY EDUCATION NEEDS:: Review of discharge instructions, medications, activity, follow up plan, limitations, Ask Me Three TRANSPORTATION:: to be determined by disposition PLAN:: Taty will likely be discharged home with new home health services for PT. She will follow up with her community providers and plan of care and transport with family. CM will continue to support Taty and her family and assess for discharge planning concerns.
[2020-07-05 10:52] VITALS: PULSE 90
--- NOTE | 2020-07-05 11:02 | PGE_ITS ---
Date of Service Date of service: 07/05/20 Time of Service: 11:02 Assessment and Plan Assessment and plan (1) Gallbladder mass: Start date: 07/05/20 Start time: 11:02 Status: Acute Assessment and plan: Concern mass maybe cancer as patient had paracentesis with over 2.5 L taken off and already filling up palliative consulted She stated she felt good yesterday then started to fill up again Explained to patient what we were doing scans for and what we are looking for Fluid sent for cultures (2) Hyponatremia: Start date: 07/05/20 Start time: 12:46 Status: Acute Assessment and plan: From liver failure. She is stable continue diuretics Paracentesis done by surgery awaiting for cultures (3) Acute liver failure: Start date: 07/05/20 Start time: 12:47 Status: Acute Assessment and plan: newly diagnosed. presents today with hyponatremia, worsening abdominal ascities and u/s findings revealing IMPRESSION: 1. Findings of hepatic cirrhosis with a large amount of abdominal ascites. 2. Cholelithiasis. No biliary ductal dilatation. 3. Asymmetric wall thickening seen in the fundus of the gallbladder. This can be seen with abdominal ascites but a mass cannot be excluded. 4. Right pleural effusion. 5. Results of this exam have been verbally communicated with provider. Recommend MRI with/without contrast MRCP results pending at this time (4) Leukocytosis: Start date: 07/05/20 Start time: 12:48 Status: Acute Assessment and plan: From unknown source though question SBP, Down to 14k today also mass seen on u/s Will ask if MRCP appropriate (5) Discharge planning issues: Start date: 07/05/20 Start time: 12:48 Status: Acute Assessment and plan: Possibly to tertiary center vs hospice if patient requires higher level vs home when medically ready. (6) DVT prophylaxis: Start date: 07/05/20 Start time: 12:49 Status: Acute Assessment and plan: SCD and teds due to platelet count. discussed with Dr. Villalpando Subjective Subjective Patient reports: other Interval history since last seen: [place] better after paracentesis last night, however now feeling like she is filling up again. MRI ordered to evaluate for mass. Palliative consulted. She denies CP, SOB, N/V/D Exam Const General: cooperative, not healthy appearing and ill appearing chronically Nutritional Appearance: malnourished Orientation: alert, awake and oriented x3 HENMT Head: normocephalic and atraumatic Eyes Conjunctivae: abnormal conjunctivae and other (icteric) Sclera: scleral abnormality (icteric) Pupils: PERRL EOM: EOM intact bilaterally Neck Neck: normal visual inspection and no JVD Thyroid: thyroid normal Lymphatic: no lymphadenopathy noted Resp Effort & Inspection: normal respiratory effort and able to speak in complete sentences Auscultation: clear to auscultation bilaterally Cardio Jugular venous pressure: no JVD Rate: regular rate Rhythm: regular rhythm Heart Sounds: S1 normal and S2 normal GI Inspection: abnormal to inspection, edema, distended (improved from yesterday) and other (large round) Percussion: fluid wave Auscultation: hyperactive bowel sounds General: deferred Back/Spine/Pelvis Back: no CVA tenderness Thoracic/Lumbar Spine: thoracic and lumbar spine normal to inspection Skin General skin exam: no rashes or lesions noted and jaundice Neuro General: patient alert, patient awake and patient oriented x3 Cognition: normal cognition Extrem General: abnormal to inspection, full ROM and pedal edema present Right lower extremity: edema Details: pitting and 3+ Left lower extremity: edema Details: pitting and 2+ Psych Appearance: other Mental Status: mental status grossly normal Speech and Movement: speech and movement normal Mood: congruent mood Objective Last Vital Signs Temp 35.6 C L 07/05/20 07:30 Pulse 90 07/05/20 10:52 Resp 16 07/05/20 07:30 BP 88/46 L 07/05/20 07:30 Pulse Ox 93 07/05/20 07:30 Laboratory Results - last 24 hr 07/04/20 07/04/20 07/04/20 09:25 12:30 17:32 WBC RBC Hgb Hct MCV MCH MCHC RDW Plt Count MPV Immature Gran % Neutrophils % Lymphocytes % Monocytes % Eosinophils % Basophils % Nucleated RBC % Absolute Neutrophils Absolute Lymphocytes Absolute Monocytes Absolute Eosinophils Absolute Basophils PT INR Sodium 121 L* Potassium 3.1 L Chloride 88 L Carbon Dioxide 25.1 Anion Gap 7.9 BUN 11 Creatinine 0.5 L Estimated GFR/1.73 m2 >= 60.00 Glucose 137 H Calcium 7.7 L Magnesium Total Bilirubin AST ALT Alkaline Phosphatase Total Protein Albumin Urine Color Cancelled Urine Clarity Cancelled Urine pH Cancelled Ur Specific [place] Cancelled Urine Protein Cancelled Urine Ketones Cancelled Urine Blood Cancelled Urine Nitrite Cancelled Urine Bilirubin Cancelled Urine Urobilinogen Cancelled Ur Leukocyte Esterase Cancelled Urine Glucose Cancelled Fluid Type Fluid Source Fluid Color Fluid Clarity Fluid pH Fluid WBC Fld Polynuclear WBCs % Fluid Mononuclear Cell Fluid Other Cells Fluid Albumin Fluid Lipase COVID-19 Source Nasal/nares SARS-CoV-2 (PCR) Negative Path Cons Comment 07/04/20 07/04/20 07/04/20 18:28 19:00 19:00 WBC RBC Hgb Hct MCV MCH MCHC RDW Plt Count MPV Immature Gran % Neutrophils % Lymphocytes % Monocytes % Eosinophils % Basophils % Nucleated RBC % Absolute Neutrophils Absolute Lymphocytes Absolute Monocytes Absolute Eosinophils Absolute Basophils PT INR Sodium Potassium Chloride Carbon Dioxide Anion Gap BUN Creatinine Estimated GFR/1.73 m2 Glucose Calcium Magnesium Total Bilirubin AST ALT Alkaline Phosphatase Total Protein Albumin Urine Color Urine Clarity Urine pH Ur Specific [place] Urine Protein Urine Ketones Urine Blood Urine Nitrite Urine Bilirubin Urine Urobilinogen Ur Leukocyte Esterase Urine Glucose Fluid Type Fluid Source Peritoneal Peritoneal Fluid Color Yellow Fluid Clarity Clear Fluid pH 7 Fluid WBC 58 Fld Polynuclear WBCs % Cancelled 13 Fluid Mononuclear Cell Cancelled 87 Fluid Other Cells Cancelled Fluid Albumin Fluid Lipase COVID-19 Source SARS-CoV-2 (PCR) Path Cons Comment Cancelled 07/04/20 07/04/20 07/05/20 19:59 19:59 06:35 WBC RBC Hgb Hct MCV MCH MCHC RDW Plt Count MPV Immature Gran % Neutrophils % Lymphocytes % Monocytes % Eosinophils % Basophils % Nucleated RBC % Absolute Neutrophils Absolute Lymphocytes Absolute Monocytes Absolute Eosinophils Absolute Basophils PT INR Sodium 123 L* Potassium 3.4 L Chloride 90 L Carbon Dioxide 26.3 Anion Gap 6.7 BUN 10 Creatinine 0.6 Estimated GFR/1.73 m2 >= 60.00 Glucose 104 Calcium 7.6 L Magnesium 2.4 Total Bilirubin 9.1 H AST 72 H ALT 34 Alkaline Phosphatase 283 H Total Protein 4.6 L Albumin 1.8 L Urine Color Urine Clarity Urine pH Ur Specific [place] Urine Protein Urine Ketones Urine Blood Urine Nitrite Urine Bilirubin Urine Urobilinogen Ur Leukocyte Esterase Urine Glucose Fluid Type Cancelled Fluid Source Cancelled Fluid Color Fluid Clarity Fluid pH Cancelled Fluid WBC Fld Polynuclear WBCs % Fluid Mononuclear Cell Fluid Other Cells Fluid Albumin Cancelled Fluid Lipase Cancelled COVID-19 Source SARS-CoV-2 (PCR) Path Cons Comment 07/05/20 07/05/20 07/05/20 06:35 06:35 09:22 WBC 14.01 H RBC 2.67 L Hgb 10.1 L Hct 27.4 L MCV 102.6 H MCH 37.8 H MCHC 36.9 H RDW 12.2 Plt Count 96 L MPV 8.8 Immature Gran % 0.8 Neutrophils % 89.2 Lymphocytes % 2.8 Monocytes % 4.9 Eosinophils % 2.1 Basophils % 0.2 Nucleated RBC % 0 Absolute Neutrophils 12.50 H Absolute Lymphocytes 0.39 L Absolute Monocytes 0.69 Absolute Eosinophils 0.29 Absolute Basophils 0.03 PT 15.4 H INR 1.5 H Sodium Potassium Chloride Carbon Dioxide Anion Gap BUN Creatinine Estimated GFR/1.73 m2 Glucose Calcium Magnesium Total Bilirubin AST ALT Alkaline Phosphatase Total Protein Albumin Urine Color [place] Urine Clarity Clear Urine pH 5.5 Ur Specific [place] >= 1.030 H Urine Protein Negative Urine Ketones Negative Urine Blood Negative Urine Nitrite Negative Urine Bilirubin Moderate H Urine Urobilinogen 2.0 H Ur Leukocyte Esterase Negative Urine Glucose Negative Fluid Type Fluid Source Fluid Color Fluid Clarity Fluid pH Fluid WBC Fld Polynuclear WBCs % Fluid Mononuclear Cell Fluid Other Cells Fluid Albumin Fluid Lipase COVID-19 Source SARS-CoV-2 (PCR) Path Cons Comment
[2020-07-05] MEDS: Normal Saline Flush 10 ML SYR (11:57)
[2020-07-05] MEDS: MORPHine 2 MG/ML SYR 1 MG IVP (11:58)
[2020-07-05] MEDS: Gadoterate meglumine 20 ML VIAL 7 ML IVP (13:45)
--- NOTE | 2020-07-05 14:04 | PT.INTREAT ---
Date of service: 07/05/20 Time of Service: 16:04 PT Notes Visit Reasons: Hyponatremia, ascities Physical Therapy Inpatient Treatment Note Date: 07/05/2020 Precautions: Fall. Standard. Activity as tolerated. Subjective: States that her MRI went well and that doctors told her that they do not see any cancer in her gall bladder. Reports that they may drain her again soon. happy that she was able to walk longer distance without much difficulty. Feels that she may get fatigued tonight and tomorrow because of it. Agreeable to not doing exercises and walking back to back in one session. Objective: General Observation: Asthenic. IV access in left UE. Abdominal swelling noted. Telemetry discontinued. Mental Status: Alert and oriented as to person, place, time, and purpose. Able to pay attention, focus, and respond appropriately. Pain: 0/10 Bed Mobility/Transfers: Sit to stand standby assist Stand to sit standby assist Chair to toilet seat standby assist Toilet seat to chair standby assist Gait: Distance of 200 feet requiring standby assist using single-point cane. Samantha much improved with AD. Step height decreased. Step length decreased. Had one episode of L OB which required contact-guard assist from PT. denies dizziness and pain. Provided standby assist with toileting transfers. Balance: Static Sitting: Normal Dynamic Sitting: Normal Static Standing: Fair Dynamic Standing: Fair Assessment: Dorothea demonstrates functional mobility decline requiring the use of a single point cane for all mobility ADL performance, generalized weakness, difficulty with walking, and increased fall risk due to admitting diagnosis. DISCHARGE RECOMMENDATIONS: Patient will benefit from home health PT services in order to progress mobility level using least restrictive assistive ambulatory device, assess home safety, identify additional equipment needs, and establish a functional maintenance program that will increase ability of patient to remain at home. TREATMENT CODE/TIME: 21666 x 26 minutes beginning at 14:04 PM.
[2020-07-05 14:34] VITALS: BP 108/62; PULSE 97; RESP 18; TEMP 36.7; O2SAT 97
--- NOTE | 2020-07-05 15:26 | PGE_ITS ---
Date of Service Date of service: 07/05/20 Time of Service: 15:26 Assessment and Plan Assessment and plan (1) Abdominal ascites: Status: Acute Qualifiers: Ascites type: due to alcoholic cirrhosis Qualified Code(s): K70.31 - Alcoholic cirrhosis of liver with ascites (2) Portal hypertension with esophageal varices: Status: Acute (3) Gallstones: Status: Acute Assessment and plan: MRCP reviewed. Gallstones noted. No Gallbladder wall thickening and no biliary dilatation. Gallbladder does not need to be removed unless it causes pain. Patient would need to have surgery done at [facility] or [facility] due to her cirrhosis. We will sign off for now. Please let us know if the patient needs another parasenthesis (4) Advanced hepatic cirrhosis: Status: Acute Subjective Subjective Interval history since last seen: MRCP reviewed. There are Gallstones but no biliary ductal dilatation, masses or gallbladder wall thickening. Her ascitis is most likely due to liver cirrhosis. Objective Last Vital Signs Temp 98.1 F 07/05/20 14:34 Pulse 97 H 07/05/20 14:34 Resp 18 07/05/20 14:34 BP 108/62 07/05/20 14:34 Pulse Ox 97 07/05/20 14:34 Laboratory Results - last 24 hr 07/04/20 07/04/20 07/04/20 09:25 12:30 17:32 WBC RBC Hgb Hct MCV MCH MCHC RDW Plt Count MPV Immature Gran % Neutrophils % Lymphocytes % Monocytes % Eosinophils % Basophils % Nucleated RBC % Absolute Neutrophils Absolute Lymphocytes Absolute Monocytes Absolute Eosinophils Absolute Basophils PT INR Sodium 121 L* Potassium 3.1 L Chloride 88 L Carbon Dioxide 25.1 Anion Gap 7.9 BUN 11 Creatinine 0.5 L Estimated GFR/1.73 m2 >= 60.00 Glucose 137 H Calcium 7.7 L Magnesium Total Bilirubin AST ALT Alkaline Phosphatase Total Protein Albumin Urine Color Cancelled Urine Clarity Cancelled Urine pH Cancelled Ur Specific [place] Cancelled Urine Protein Cancelled Urine Ketones Cancelled Urine Blood Cancelled Urine Nitrite Cancelled Urine Bilirubin Cancelled Urine Urobilinogen Cancelled Ur Leukocyte Esterase Cancelled Urine Glucose Cancelled Fluid Type Fluid Source Fluid Color Fluid Clarity Fluid pH Fluid WBC Fld Polynuclear WBCs % Fluid Mononuclear Cell Fluid Other Cells Fluid Albumin Fluid Lipase SARS-CoV-2 (PCR) Negative Path Cons Comment 07/04/20 07/04/20 07/04/20 18:28 19:00 19:00 WBC RBC Hgb Hct MCV MCH MCHC RDW Plt Count MPV Immature Gran % Neutrophils % Lymphocytes % Monocytes % Eosinophils % Basophils % Nucleated RBC % Absolute Neutrophils Absolute Lymphocytes Absolute Monocytes Absolute Eosinophils Absolute Basophils PT INR Sodium Potassium Chloride Carbon Dioxide Anion Gap BUN Creatinine Estimated GFR/1.73 m2 Glucose Calcium Magnesium Total Bilirubin AST ALT Alkaline Phosphatase Total Protein Albumin Urine Color Urine Clarity Urine pH Ur Specific [place] Urine Protein Urine Ketones Urine Blood Urine Nitrite Urine Bilirubin Urine Urobilinogen Ur Leukocyte Esterase Urine Glucose Fluid Type Fluid Source Peritoneal Peritoneal Fluid Color Yellow Fluid Clarity Clear Fluid pH 7 Fluid WBC 58 Fld Polynuclear WBCs % Cancelled 13 Fluid Mononuclear Cell Cancelled 87 Fluid Other Cells Cancelled Fluid Albumin Fluid Lipase SARS-CoV-2 (PCR) Path Cons Comment Cancelled 07/04/20 07/04/20 07/05/20 19:59 19:59 06:35 WBC RBC Hgb Hct MCV MCH MCHC RDW Plt Count MPV Immature Gran % Neutrophils % Lymphocytes % Monocytes % Eosinophils % Basophils % Nucleated RBC % Absolute Neutrophils Absolute Lymphocytes Absolute Monocytes Absolute Eosinophils Absolute Basophils PT INR Sodium 123 L* Potassium 3.4 L Chloride 90 L Carbon Dioxide 26.3 Anion Gap 6.7 BUN 10 Creatinine 0.6 Estimated GFR/1.73 m2 >= 60.00 Glucose 104 Calcium 7.6 L Magnesium 2.4 Total Bilirubin 9.1 H AST 72 H ALT 34 Alkaline Phosphatase 283 H Total Protein 4.6 L Albumin 1.8 L Urine Color Urine Clarity Urine pH Ur Specific [place] Urine Protein Urine Ketones Urine Blood Urine Nitrite Urine Bilirubin Urine Urobilinogen Ur Leukocyte Esterase Urine Glucose Fluid Type Cancelled Fluid Source Cancelled Fluid Color Fluid Clarity Fluid pH Cancelled Fluid WBC Fld Polynuclear WBCs % Fluid Mononuclear Cell Fluid Other Cells Fluid Albumin Cancelled Fluid Lipase Cancelled SARS-CoV-2 (PCR) Path Cons Comment 07/05/20 07/05/20 07/05/20 06:35 06:35 09:22 WBC 14.01 H RBC 2.67 L Hgb 10.1 L Hct 27.4 L MCV 102.6 H MCH 37.8 H MCHC 36.9 H RDW 12.2 Plt Count 96 L MPV 8.8 Immature Gran % 0.8 Neutrophils % 89.2 Lymphocytes % 2.8 Monocytes % 4.9 Eosinophils % 2.1 Basophils % 0.2 Nucleated RBC % 0 Absolute Neutrophils 12.50 H Absolute Lymphocytes 0.39 L Absolute Monocytes 0.69 Absolute Eosinophils 0.29 Absolute Basophils 0.03 PT 15.4 H INR 1.5 H Sodium Potassium Chloride Carbon Dioxide Anion Gap BUN Creatinine Estimated GFR/1.73 m2 Glucose Calcium Magnesium Total Bilirubin AST ALT Alkaline Phosphatase Total Protein Albumin Urine Color [place] Urine Clarity Clear Urine pH 5.5 Ur Specific [place] >= 1.030 H Urine Protein Negative Urine Ketones Negative Urine Blood Negative Urine Nitrite Negative Urine Bilirubin Moderate H Urine Urobilinogen 2.0 H Ur Leukocyte Esterase Negative Urine Glucose Negative Fluid Type Fluid Source Fluid Color Fluid Clarity Fluid pH Fluid WBC Fld Polynuclear WBCs % Fluid Mononuclear Cell Fluid Other Cells Fluid Albumin Fluid Lipase SARS-CoV-2 (PCR) Path Cons Comment
[2020-07-05 16:28] LABS: Glucose, Fluid 122 mg/dL (See Note)
[2020-07-05 17:51] LABS: CEA 1.9 ng/mL (See Note)
[2020-07-05] MEDS: Melatonin 3 MG TAB PO (21:12)
[2020-07-05 23:11] VITALS: BP 107/64; PULSE 87; RESP 17; TEMP 36.5; O2SAT 95
[2020-07-06 07:49] VITALS: BP 90/60; PULSE 86; RESP 17; TEMP 36.4; O2SAT 96
[2020-07-06] MEDS: Spironolactone 50 MG TAB 200 MG PO (08:13)
[2020-07-06] MEDS: Furosemide 40 MG TAB PO ×2 (08:13→11:05)
[2020-07-06 09:42] LABS: Abs Immature Grans 0.19 10^3/uL (0.0-0.06); Absolute Basophil Count 0.04 10^3/uL (0.0-0.2); Absolute Eosinophil Count 0.24 10^3/uL (0.0-0.7); Basophils % 0.2; Eosinophils % 1.2; HCT 30.8 % (36.0-46.0); HGB 11.1 g/dL (11.2-15.7); Lymphocytes % 1.9; MCH 38.3 pg (27.0-33.0); MCV 106.2 fL (80-95); MPV 8.8 fL (8.0-11.0); Monocytes % 4.6; Neutrophils % 91.1; Nucleated RBC 0 %; Platelet Count 109 10^3/uL (130-400); RDW 12.5 % (11.7-14.6); WBC 19.74 10^3/uL (4.4-10.8)
[2020-07-06 09:52] LABS: Anion Gap 8.4 mmol/L (3-11); BUN 12 mg/dL (7-18); CO2 24.6 mmol/L (21.0-32.0); CREATININE 0.7 mg/dL (0.55-1.02); Calcium 8.1 mg/dL (8.5-10.1); Chloride 88 mmol/L (98-107); Glucose 147 mg/dL (74-106); Potassium 4.7 mmol/L (3.5-5.1)
[2020-07-06 09:53] LABS: Sodium 121 mmol/L (136-145)
[2020-07-06 09:54] LABS: Absolute Lymphocyte Count 0.38 10^3/uL (1.2-3.4); Absolute Monocyte Count 0.91 10^3/uL (0.1-0.8); Absolute Neutrophil Count 17.98 10^3/uL (1.2-6.7)
[2020-07-06 09:55] LABS: Diff Comment Diff Reviewed; Macrocytosis 1+
[2020-07-06 09:57] LABS: Ammonia 34 umol/L (11-32)
--- NOTE | 2020-07-06 10:32 | PGE_ITS ---
Date of Service Date of service: 07/06/20 Time of Service: 10:32 Assessment and Plan Assessment and plan (1) Gallbladder mass: Start date: 07/06/20 Start time: 11:30 Status: Ruled-out Assessment and plan: MRI r/o gallbladder mass [facility] negative HIDA scab done at [facility] was positive for severe cirrhosis. CEA 1.9 AFP pending. (2) Acute liver failure: Start date: 07/06/20 Start time: 11:42 Status: Acute Assessment and plan: newly diagnosed. Severe IMPRESSION: 1. Findings of hepatic cirrhosis with a large amount of abdominal ascites. 2. Cholelithiasis. No biliary ductal dilatation. 3. Asymmetric wall thickening seen in the fundus of the gallbladder. This can be seen with abdominal ascites but a mass cannot be excluded. 4. Right pleural effusion. 5. Results of this exam have been verbally communicated with provider. MRI finding MPRESSION: 1. Cholelithiasis. No choledocholithiasis or biliary ductal dilatation. 2. No evidence of gallbladder wall thickening or mass. 3. Large right effusion and small left pleural effusion. 4. Large abdominal ascites. 5. Splenomegaly. (3) Hyponatremia: Start date: 07/06/20 Start time: 11:43 Status: Acute Assessment and plan: From liver failure. She is stable continue diuretics increased spironolactone to 200 mg and lasix to 60 mg This is likely her new baseline; with recurrent ascities she will need to see surgery as an outpatient for paracentesis. Paracentesis done by surgery awaiting for cultures (4) Leukocytosis: Start date: 07/06/20 Start time: 11:48 Status: Acute Assessment and plan: From unknown source though question SBP, Down to 14k yesterday now up to 19 today Will continue to monitor Blood cultures negative NGTD on fluid culture (5) Muscle wasting: Start date: 07/06/20 Start time: 12:08 Status: Acute Assessment and plan: Due to cirrhosis. Low fat diet. (6) Abdominal ascites: Start date: 07/06/20 Start time: 12:08 Status: Acute Assessment and plan: Paracentesis on admission done by Dr. Méndez. 2.5 L taken off She will have follow up with Surgery in the office starting next week to follow Qualifiers: Ascites type: due to alcoholic cirrhosis Qualified Code(s): K70.31 - Alcoholic cirrhosis of liver with ascites (7) Discharge planning issues: Start date: 07/06/20 Start time: 12:18 Status: Acute Assessment and plan: Home possibly tomorrow. Will have palliative meet with patient today. (8) DVT prophylaxis: Start date: 07/06/20 Start time: 12:18 Status: Acute Assessment and plan: SCD and teds due to platelet count. discussed with Dr. Villalpando Subjective Subjective Patient reports: feels better Interval history since last seen: feeling better today. abd soft, slight distension. No mass seen on MRI yesterday, though I do think given severity of cirrhosis and the fact she only quit drinking three weeks ago she has months to live she would qualify for hospice she is not at the point to discuss that yet. She is willing to meet with palliative. Her ammonia level was slightly elevated today. Will start on lactulose. She also has edema to bilateral lower extremities increase lasix and apply teds. She denies CP, SOB, N/V/D. Possible discharge in the am. Will set up outpatient schedule with surgery to have paracentesis when needed. Exam Const General: cooperative, not healthy appearing and ill appearing chronically Nutritional Appearance: malnourished Orientation: alert, awake and oriented x3 HENMT Head: normocephalic and atraumatic Eyes Conjunctivae: abnormal conjunctivae and other (icteric) Sclera: scleral abnormality (icteric) Pupils: PERRL EOM: EOM intact bilaterally Neck Neck: normal visual inspection and no JVD Thyroid: thyroid normal Lymphatic: no lymphadenopathy noted Resp Effort & Inspection: normal respiratory effort and able to speak in complete sentences Auscultation: clear to auscultation bilaterally Cardio Jugular venous pressure: no JVD Rate: regular rate Rhythm: regular rhythm Heart Sounds: S1 normal and S2 normal GI Inspection: abnormal to inspection, edema, distended (improved ) and other (mild to moderatly distended) Percussion: fluid wave Auscultation: hyperactive bowel sounds General: deferred Back/Spine/Pelvis Back: no CVA tenderness Thoracic/Lumbar Spine: thoracic and lumbar spine normal to inspection Skin General skin exam: no rashes or lesions noted and jaundice Neuro General: patient alert, patient awake and patient oriented x3 Cognition: normal cognition Extrem General: abnormal to inspection, full ROM and pedal edema present Right lower extremity: edema Details: pitting and 3+ Left lower extremity: edema Details: pitting and 2+ Psych Appearance: other Mental Status: mental status grossly normal Speech and Movement: speech and movement normal Mood: congruent mood Objective Last Vital Signs Temp 36.4 C L 07/06/20 07:49 Pulse 86 07/06/20 07:49 Resp 17 07/06/20 07:49 BP 90/60 L 07/06/20 07:49 Pulse Ox 96 07/06/20 07:49 Laboratory Results - last 24 hr 07/04/20 07/04/20 07/05/20 19:00 19:00 06:35 WBC RBC Hgb Hct MCV MCH MCHC RDW Plt Count MPV Immature Gran % Neutrophils % Lymphocytes % Monocytes % Eosinophils % Basophils % Nucleated RBC % Absolute Neutrophils Absolute Lymphocytes Absolute Monocytes Absolute Eosinophils Absolute Basophils RBC Morphology Macrocytosis Sodium Potassium Chloride Carbon Dioxide Anion Gap BUN Creatinine Estimated GFR/1.73 m2 Glucose Calcium Ammonia Carcinoembryonic Ag 1.9 Fluid Glucose 122 Path Cons Comment 07/06/20 07/06/20 07/06/20 09:35 09:35 09:35 WBC 19.74 H D RBC 2.90 L Hgb 11.1 L Hct 30.8 L MCV 106.2 H MCH 38.3 H MCHC 36.0 RDW 12.5 Plt Count 109 L MPV 8.8 Immature Gran % 1.0 Neutrophils % 91.1 Lymphocytes % 1.9 Monocytes % 4.6 Eosinophils % 1.2 Basophils % 0.2 Nucleated RBC % 0 Absolute Neutrophils 17.98 H Absolute Lymphocytes 0.38 L Absolute Monocytes 0.91 H Absolute Eosinophils 0.24 Absolute Basophils 0.04 RBC Morphology See below Macrocytosis 1+ Sodium 121 L* Potassium 4.7 D Chloride 88 L Carbon Dioxide 24.6 Anion Gap 8.4 BUN 12 Creatinine 0.7 Estimated GFR/1.73 m2 >= 60.00 Glucose 147 H Calcium 8.1 L Ammonia 34 H Carcinoembryonic Ag Fluid Glucose Path Cons Comment
[2020-07-06] MEDS: Lactulose 20 GM/30 ML CUP PO (11:05)
--- NOTE | 2020-07-06 11:47 | W.NUTCONSULT ---
Date of service: 07/06/20 Time of Service: 11:47 Nutritional Consult ASSESSMENT: 64 year old female admitted with hyponatremia with abdominal ascites due to liver failure. Low BMI, muscle wasting and significant weight loss indicative of malnutrition. Dorothea report good appetite and weight stability in last couple of months. Had paracentesis yesterday. Usual weight for Dorothea is 100-110 lbs. Has lost 20 lbs in last 6 months. Labs indicate elevated ammonia. Estimated Needs: [id number] kcal, 30-40 g protein, 1400 ml fluid (0.8 g pro/kg) MD reports may be discharged on hospice. NUTRITIONAL DIAGNOSIS: Severe malnutrition in view of low weight, muscle wasting and altered nutrient utilization INTERVENTION: Educated Dorothea on importance of [id number] ml fluid restriction and low sodium meals to decrease fluid accumulation in abdomen due to liver failure. Encouraged 3 meals daily with good souces of complex carbohydrates, fruits, vegetables and healthy fats and limited amount of protein rich foods. Provided education on portion of protein rich foods to avoid excessive protein intake that can lead to increased ammonia levels. MONITORING AND EVALUATION: po intake, labs Time Spent in Nutritional Counseling and Treatment: 15
--- NOTE | 2020-07-06 12:06 | PT.INTREAT ---
Date of service: 07/06/20 Time of Service: 11:25 PT Notes Visit Reasons: Hyponatremia, ascities Inpatient Physical Therapy Treatment Note [facility] Date: 07/06/2020 PRECAUTIONS:Fall SUBJECTIVE: Dorothea is pleasant and agreeable to participating in PT. She reports that she is interested in a HEP for discharge, and does not wish to have HH PT. OBJECTIVE: PAIN: No c/o pain BED MOBILITY/TRANSFERS/GAIT: Supine-sit: I Sit-stand: S Stand-sit: S GAIT: Assistive device: SPC Weight bearing: Full Assist: SBA Distance: 125' + 75' Deviation: c/o increased fatigue, seated rest x1 THEREX: Patient was instructed in an UE and LE strengthening program, as per flow sheet. All exercises were completed in a seated position. She requires rest break between exercises due to minimal SOB and increased fatigue. STAIRS: Up/down 3x4 and 2x6 using B rails and a step-over pattern with supervision ASSESSMENT: Patient demonstrates increased fatigue with gait training and ther ex completion. Discussed the use of 4WW with outdoor ambulation once she is home, she is agreeable. PLAN: Continue with global strengthening and gait training for improved activity tolerance. Issue and review global strengthening HEP prior to discharge to home tomorrow. TREATMENT CODE/TIME: 15 minutes; [id number] (11:25)
[2020-07-06 12:59] LABS: Fluid Type PERITONEAL; Lactate Dehydrogenase (LD), BF 22 U/L
--- NOTE | 2020-07-06 13:09 | PDOC.CMPRO ---
- If Service Date Differs Date of service: 07/06/20 Time of Service: 13:10 Care Management Progress Note S/O: Taty was sitting up in a chair when CM met with her.She appeared to be in good spirits and stated that she is feeling much better. She stated that her abdomen is softer and she has less discomfort. Taty will likely be discharged home with no services tomorrow. She admits to having difficulty getting out of her chair but feels that if she does the exercises recommended by PT, she will get stronger. Taty has declined home health services. Per provider, she has been told that she has end stage liver disease, however, she shared with CM that she intends to remain optimistic, never mentioning her diagnosis or prognosis. A: Taty is a 64 year old woman admitted on 07/04/20 with hyponatremia and ascites P: Taty will likely be discharged home with no new services. She will follow up with her community providers and plan of care and transport with family. CM will continue to support patient, family and discharge planning needs.
[2020-07-06 14:12] LABS: AFP, Peritoneal Fluid 1.6 ng/mL; CEA, Peritoneal Fluid <0.7 ng/mL
--- NOTE | 2020-07-06 14:55 | CHAPLAIN ---
Dorothea was sitting up in bed when I visited. She had a someone visiting with her. I introduced myself and explained my role.
--- NOTE | 2020-07-06 15:05 | PCNE_ITS ---
Date of service: 07/06/20 Time of Service: 15:12 History of Present Illness Narrative: Taty is a very pleasant 64-year-old female with a history of alcohol abuse. She was diagnosed with cirrhosis 3 weeks ago, stopped drinking at that point. The cirrhosis is end-stage, she has ascites for which she had a paracentesis yesterday, she is thin with abnormal weight loss, Her skin is jaund ice, she has esophageal varicies and hyponatremia. Palliative care was consulted to discuss goals of care and advanced care planning. She has been seen by general surgery for paracentesis There is question of an occult cancer with her rapid progression, studies pending. Her Hepatitis A, B and C tests were all negative. She was started on lactulose due to concerns that she has had some confusion and her aldactone and lasix are being adjusted. She is likely for discharge tomorrow, she will have follow up scheduled with general surgery. At home, she putters around the house during the day. She likes to go out for a short walk. Her , [place] is normally home with her, he is her biggest support person. Goals: Her first goal is to get back home with her . She is planning on going fishing, they have trails in the house that she likes to walk on. Staying home is important to her. She wants to be with her . We talked about the fact that her liver disease is end stage. She wants to go to GI to discuss options. We briefly talked about hospice and about the option of focusing on comfort and quality of life as well as supporting her caregiver as things get more difficult for her to do independently. She is not ready to discuss hospice at this time. She is reluctant to follow up with palliative even when the difference between hospice and palliative was clearly defined. I tried to call her to discuss, but the number provided was disconnected. She reports that her is trying to get her into [facility] gastroenterology. She has 2 daughters and 2 grandsons. They live near her, they are close. 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 She retired 5-6 years ago. Assessment and Plan Assessment and plan (1) Advanced hepatic cirrhosis: Status: Acute (2) Acute liver failure: Status: Acute (3) Portal hypertension with esophageal varices: Status: Acute (4) Abdominal ascites: Status: Acute Qualifiers: Ascites type: due to alcoholic cirrhosis Qualified Code(s): K70.31 - Alcoholic cirrhosis of liver with ascites (5) Muscle wasting: Status: Acute (6) History of ETOH abuse: Status: Acute (7) Abnormal weight loss: Status: Acute (8) Palliative care patient: Status: Acute Assessment and plan: Taty is a pleasant 64 year old female with end stage liver disease. She had a paracentesis yesterday. She is interested in following up with GI to discuss options. We talked about the option of hospice to focus on comfort and quality of life, but she is not ready to talk about that yet. She is reluctant to follow up with Palliative care. Hopefully, she will be willing to have a follow up visit. We did not discuss CODE status today. I will reach out to her tomorrow, the number provided to me is not in service. Taty meets criteria for hospice, she will benefit from ongoing discussion of goals of care and advanced care planning. Follow up next week if she agrees. Review of Systems Narrative: She denies SOB and wheezing, she has a dry cough chronically. She denies CP/pressure. Her appetite is improving, she is starting to eat more. No abdominal pain. She denies any pain at all. She is urinating and she has had 2 BMs today. [facility] Medical History Abnormal weight loss Acute cholecystitis Acute liver failure Advanced hepatic cirrhosis Gallstones Hyponatremia Leukocytosis Portal hypertension with esophageal varices Social History Smoking/Tobacco Use Status: Never Smoking risk assessment performed?: Yes Alcohol Intake: former Drug use: Never Substance use type: does not use Do you feel safe at home: Yes Do you feel safe in your relationship?: Yes Exam Narrative Exam Narrative: General: thin, jaundice female, sitting up in bed, awake and alert, able to engage in conversation and answer questions appropriately. HEENT: normocephalic, atraumatic, pupils equal and round, makes eye contact. mucous membranes moist. Cardiovascular: heart sounds regular, nontachycardic. Respiratory: respirations appear even and unlabored, lung sounds clear throughout. GI: large, round abdomen, soft, nontender on palpation, +BS. Extremities: +1 pitting edema to BLEs. Moves all 4 extremities freely. Results Last Vital Signs Temp 36.4 C L 07/06/20 07:49 Pulse 86 07/06/20 07:49 Resp 17 07/06/20 07:49 BP 90/60 L 07/06/20 07:49 Pulse Ox 96 07/06/20 07:49 Labs Result diagrams: 07/06/20 09:35 07/06/20 09:35 Labs: Laboratory Results - last 24 hr 07/04/20 07/04/20 07/04/20 19:00 19:00 19:00 WBC RBC Hgb Hct MCV MCH MCHC RDW Plt Count MPV Immature Gran % Neutrophils % Lymphocytes % Monocytes % Eosinophils % Basophils % Nucleated RBC % Absolute Neutrophils Absolute Lymphocytes Absolute Monocytes Absolute Eosinophils Absolute Basophils RBC Morphology Macrocytosis Sodium Potassium Chloride Carbon Dioxide Anion Gap BUN Creatinine Estimated GFR/1.73 m2 Glucose Calcium Ammonia CEA Site Not Applicable Carcinoembryonic Ag Body Fluid Site Not Applicable Fluid Type Peritoneal Fluid Glucose 122 Fluid LDH 22 Perit Alpha Fetoprotein 1.6 Peritoneal CEA <0.7 Path Cons Comment 07/05/20 07/06/20 07/06/20 06:35 09:35 09:35 WBC 19.74 H D RBC 2.90 L Hgb 11.1 L Hct 30.8 L MCV 106.2 H MCH 38.3 H MCHC 36.0 RDW 12.5 Plt Count 109 L MPV 8.8 Immature Gran % 1.0 Neutrophils % 91.1 Lymphocytes % 1.9 Monocytes % 4.6 Eosinophils % 1.2 Basophils % 0.2 Nucleated RBC % 0 Absolute Neutrophils 17.98 H Absolute Lymphocytes 0.38 L Absolute Monocytes 0.91 H Absolute Eosinophils 0.24 Absolute Basophils 0.04 RBC Morphology See below Macrocytosis 1+ Sodium 121 L* Potassium 4.7 D Chloride 88 L Carbon Dioxide 24.6 Anion Gap 8.4 BUN 12 Creatinine 0.7 Estimated GFR/1.73 m2 >= 60.00 Glucose 147 H Calcium 8.1 L Ammonia CEA Site Carcinoembryonic Ag 1.9 Body Fluid Site Fluid Type Fluid Glucose Fluid LDH Perit Alpha Fetoprotein Peritoneal CEA Path Cons Comment 07/06/20 09:35 WBC RBC Hgb Hct MCV MCH MCHC RDW Plt Count MPV Immature Gran % Neutrophils % Lymphocytes % Monocytes % Eosinophils % Basophils % Nucleated RBC % Absolute Neutrophils Absolute Lymphocytes Absolute Monocytes Absolute Eosinophils Absolute Basophils RBC Morphology Macrocytosis Sodium Potassium Chloride Carbon Dioxide Anion Gap BUN Creatinine Estimated GFR/1.73 m2 Glucose Calcium Ammonia 34 H CEA Site Carcinoembryonic Ag Body Fluid Site Fluid Type Fluid Glucose Fluid LDH Perit Alpha Fetoprotein Peritoneal CEA Path Cons Comment
[2020-07-06 15:58] VITALS: BP 100/68; PULSE 64; RESP 17; TEMP 36.5; O2SAT 95
[2020-07-06 20:02] VITALS: BP 90/50; PULSE 84; RESP 18; TEMP 36.5; O2SAT 97
[2020-07-06] MEDS: Melatonin 3 MG TAB PO (21:24)
[2020-07-06 23:25] VITALS: BP 110/60; PULSE 80; RESP 18; TEMP 36.6; O2SAT 97
[2020-07-06 23:56] VITALS: BP 98/62; PULSE 82; RESP 16; TEMP 36.7; O2SAT 95
[2020-07-07 06:22] VITALS: BP 90/60; PULSE 87; RESP 17; TEMP 36.6; O2SAT 95
[2020-07-07 06:52] LABS: ALT 38 U/L (14-59); AST 89 U/L (15-37); Absolute Eosinophil Count 0.27 10^3/uL (0.0-0.7); Absolute Lymphocyte Count 0.31 10^3/uL (1.2-3.4); Absolute Neutrophil Count 13.37 10^3/uL (1.2-6.7); Albumin 1.8 g/dL (3.4-5.0); Alkaline Phosphatase 289 U/L (46-116); Anion Gap 6.9 mmol/L (3-11); BUN 9 mg/dL (7-18); Basophils % 0.1; Bilirubin, Total 9.2 mg/dL (0.2-1.0); CO2 24.1 mmol/L (21.0-32.0); CREATININE 0.6 mg/dL (0.55-1.02); Chloride 91 mmol/L (98-107); Eosinophils % 1.8; Glucose 111 mg/dL (74-106); HGB 10.6 g/dL (11.2-15.7); Immature Grans % 0.7; Lymphocytes % 2.1; MCH 37.9 pg (27.0-33.0); MCHC 36.6 % (32.0-36.0); MCV 103.6 fL (80-95); MPV 8.6 fL (8.0-11.0); Magnesium 1.9 mg/dL (1.8-2.4); Monocytes % 5.4; Neutrophils % 89.9; Nucleated RBC 0 %; Potassium 4.5 mmol/L (3.5-5.1); RDW 12.4 % (11.7-14.6); RDW-SD 46.6 fL; Total Protein 4.6 g/dL (6.4-8.2); WBC 14.87 10^3/uL (4.4-10.8)
[2020-07-07 06:55] LABS: Absolute Basophil Count 0.01 10^3/uL (0.0-0.2); Sodium 122 mmol/L (136-145)
[2020-07-07 07:23] LABS: Diff Comment Diff Reviewed; Platelet Count 93 10^3/uL (130-400); RBC Morphology Normal
[2020-07-07 07:36] VITALS: BP 81/44; PULSE 84; RESP 19; TEMP 36.6; O2SAT 95
[2020-07-07] MEDS: Furosemide 20 MG TAB 60 MG PO (07:56)
[2020-07-07] MEDS: Spironolactone 50 MG TAB 200 MG PO (07:56)
--- NOTE | 2020-07-07 09:12 | W.PM.DS.N ---
Date of service: 07/07/20 Time of Service: 09:12 DS: Diagnosis Discharge Diagnosis (1) Advanced hepatic cirrhosis: Start date: 07/07/20 Start time: 09:13 Status: Acute Asessment and Plan: Newly diagnosed three weeks ago Severe end stage. Likely 3-6 month survival rate. On admission required paracentesis with over 2.5 L needing to be aspirated Increased spironolactone to 200 mg lasix to 60 mg ascities improved. She will follow up with surgery as an outpatient as needed to have paracentsis hep panel negative (2) Acute liver failure: Start date: 07/07/20 Start time: 09:16 Status: Acute Asessment and Plan: as above. (3) Portal hypertension with esophageal varices: Start date: 07/07/20 Start time: 09:20 Status: Acute Asessment and Plan: suspected. (4) Abdominal ascites: Start date: 07/07/20 Start time: 09:29 Status: Acute Asessment and Plan: improved from admission, see above (5) Muscle wasting: Start date: 07/07/20 Start time: 09:30 Status: Acute Asessment and Plan: Due to cirrhosis (6) History of ETOH abuse: Start date: 07/07/20 Start time: 09:30 Status: Acute Asessment and Plan: She has not had any alcohol since being diagnosed with liver failure (7) Abnormal weight loss: Start date: 07/07/20 Start time: 09:33 Status: Acute Asessment and Plan: cachectic in setting of severe liver failure (8) Palliative care patient: Start date: 07/07/20 Start time: 09:14 Status: Acute Asessment and Plan: palliative met with patient though patient was not receptive and in denial. Will follow in the community see note from Palliative CHIROPRACTOR ASSISTANT Elina li discussed with Dr Villalpando. Discharge Plan Disposition Patient Disposition: HOME W/HOME HEALTH SERVICE Condition: Stable Discharge Details Reason For Visit: Hyponatremia, ascities Admit Date/Time: 07/04/20 11:44 Admit Provider: Justin Villalpando Attending Provider: Justin Villalpando Primary Care Provider: Anay Bhatiahryn [facility] Course Hospital Course: 64 y.o female with PMH of Alcohol abuse, cirrhosis recently diagnosed, [facility]. She was admitted to [facility] after having blood work through her PCP and finding WBC elevated to 17.78, sodium 122, chloride 86, mag 1.6, Alk phos 317, she INR 1.6 and lactate 1.6. She was admitted to [facility] for further management. On admission surgery was consulted for paracentesis. She had approx 2.5 L aspirtated from her abd. Ultrasound reveals asymmetric wall thickening seen in the fundus of gallbladder mass could not be excluded. MRI/MRCP ordered. No evidence of gallbladder or wall thickening or mass seen on MRI. She was placed on higher dose of diuretics. Started on low fat diet. She worked with PT she is doing fairly well, there was concern about possible encephalopathy, ammonia level checked, slight elevation she was started on lactulose with goal of 3 soft to loose BM per day. She had 5 yesterday. Palliative met with patient. Patient is end stage liver disease with likely 3-6 months to live she would at this time qualify for hospice at this time, however she is in denial. She does not want to her that she will not survive this. Elina BLACKWELL from palliative will continue to follow her in the community. She will follow up with surgery as needed for paracentesis. Continue with diuretics, increased aldactone to 100 mg BID and lasix to 60 mg daily. MARÍA stockings to help. She would benefit from PT/OT/RN services. Will set these up. She denies CP, SOB, N/V/D. Home Meds and New Rx's Prescriptions: New spironolactone 100 mg tablet 100 mg PO BID Qty: 60 RF: 0 furosemide [Lasix] 40 mg tablet 60 mg PO DAILY Qty: 45 RF: 0 lactulose 10 gram/15 mL solution 10 g PO DAILY Qty: 237 RF: 1 Discontinued furosemide 40 mg Tablet 40 mg PO DAILY RF: 0 spironolactone 100 mg Tablet 100 mg PO DAILY RF: 0 Discharge Instructions Instructions: Cirrhosis (DC), Low Fat Diet (DC), Ascites (DC), Weakness (DC) Additional Instructions: Follow up with PCP in 1 week Follow up with Surgery next week Take spironolactone 100 mg twice a day to help with abdominal swelling Lasix 60 mg daily to help with swelling Activity:: Activity as Tolerated Equipment/Supplies:: No Equipment Needed Diet:: low fat Discharge Orders Discharge Orders: Discharge Order (Routine); Ordered 07/07/20 Ordered By: Hattie Romo DS: Summary Time Spent with Patient providing and/or coordinating discharge services: Greater than 30 minutes (approx 45 mins ) Status at Discharge Functional status at discharge: uses cane/walker Overall status at discharge: patient is progressing back to baseline Mental Status: mental status grossly normal Speech and Movement: speech and movement normal Mood: congruent mood Affect: normal affect Exam Const General: cooperative, not healthy appearing and ill appearing chronically Nutritional Appearance: malnourished Orientation: alert, awake and oriented x3 HENMT Head: normocephalic and atraumatic Eyes Conjunctivae: abnormal conjunctivae and other (icteric) Sclera: scleral abnormality (icteric) Pupils: PERRL EOM: EOM intact bilaterally Neck Neck: normal visual inspection and no JVD Thyroid: thyroid normal Lymphatic: no lymphadenopathy noted Resp Effort & Inspection: normal respiratory effort and able to speak in complete sentences Auscultation: clear to auscultation bilaterally Cardio Jugular venous pressure: no JVD Rate: regular rate Rhythm: regular rhythm Heart Sounds: S1 normal and S2 normal GI Inspection: abnormal to inspection, edema, distended (improved ) and other (mild to moderatly distended) Percussion: fluid wave Auscultation: hyperactive bowel sounds General: deferred Back/Spine/Pelvis Back: no CVA tenderness Thoracic/Lumbar Spine: thoracic and lumbar spine normal to inspection Skin General skin exam: no rashes or lesions noted and jaundice Neuro General: patient alert, patient awake and patient oriented x3 Cognition: normal cognition Extrem General: abnormal to inspection, full ROM and pedal edema present Right lower extremity: edema Details: pitting and 3+ Left lower extremity: edema Details: pitting and 2+ Psych Appearance: other Mental Status: mental status grossly normal Speech and Movement: speech and movement normal Mood: congruent mood Affect: normal affect DS: Data Vitals/I&O Vitals and I&O: Vital Signs Temperature 36.6 C 07/07/20 07:36 Temperature Source Tympanic 07/07/20 07:36 Pulse 84 07/07/20 07:36 Pulse Rhythm Regular 07/07/20 03:27 Pulse 84 07/04/20 10:01 Respiratory Rate 19 07/07/20 07:36 Respiratory Effort Non-Labored 07/07/20 03:27 Respiratory Depth Normal 07/07/20 03:27 Respiratory Pattern Normal 07/07/20 03:27 Blood Pressure 81/44 L 07/07/20 07:36 Blood Pressure Mean 62 07/04/20 10:00 Blood Pressure Position Sitting 07/04/20 08:51 Pulse Oximetry 95 07/07/20 07:36 Oxygen Delivery Method Room Air 07/07/20 07:36 Oxygen Flow Rate 0 07/07/20 07:36 Pain Level 0 07/07/20 06:22 Comment 07/07/20 07:36 Intake & Output 07/06/20 07/06/20 07/07/20 11:59 23:59 11:59 Intake Total 200 / 680 480 / 680 Output Total 200 / 375 175 / 375 100 / 100 Balance 0 / 305 305 / 305 -100 / -100 Intake: Oral 200 / 680 480 / 680 Output: Urine 200 / 275 75 / 275 100 / 100 Stool 100 / 100 Other: Urine Color Pale Light Tiffany Light Tiffany Yellow Urine Appearance Clear Clear Clear Urine Odor Normal Normal Normal Comment voiding with stool; not measured at this time Stool Size Small Moderate Stool Characteristics Liquid Soft Brown Voiding Methods Toilet Bedside Commode Toilet Data Completed and Pending Completed studies during hospitalization [Text1]: Exam(s) XR CHEST 2V PA LATERAL EXAM: XR CHEST 2V PA LATERAL CLINICAL HISTORY: Fluid retention TECHNIQUE: 2D digital imaging was performed. COMPARISON: CT CT ABDOMEN PELVIS W from 06/16/2020 FINDINGS: MEDIASTINUM: Normal. HEART: Normal. PULMONARY VASCULATURE: Normal. LUNGS: Clear. PLEURAL SPACE: There is a right pleural effusion occupying almost half of the right hemithorax. No left pleural effusion is seen. No pneumothorax is present. BONE:Within normal limits for the patient's age. OTHER FINDINGS:Normal. IMPRESSION: Moderately large right pleural effusion. Exam(s) US ABDOMEN LIMITED EXAM: US ABDOMEN LIMITED CLINICAL HISTORY: RUQ, hx of cirrhosis and ascites TECHNIQUE: Ultrasound abdomen performed using standard protocol. COMPARISON: CT CT ABDOMEN PELVIS W from 06/16/2020 FINDINGS: ABDOMINAL AORTA AND IVC: Visualized portions normal caliber. PANCREAS: Normal where visualized. LIVER: The liver measures 13.4 cm in length. The liver has a nodular contour and is mildly echogenic. The findings are suggestive of hepatic cirrhosis. Hepatopedal flow in the Portal Vein. No hepatic mass. GALLBLADDER: At least 2 isoechoic gallstones are present. There do appear to be smaller echogenic mobile stones present. There is wall thickening of the gallbladder which appears asymmetric in the fundus. Gallbladder mass cannot be excluded. There is a large amount of abdominal ascites present. There are a few echogenic in mobile foci along the wall of the gallbladder likely reflecting polyps. BILIARY SYSTEM: Common bile duct measures < 7 mm. No intrahepatic biliary ductal dilation. WALKER'S SIGN: Negative. KIDNEYS: Right kidney is unremarkable. No evidence of renal calculi. No evidence of hydronephrosis. No renal mass or cyst identified. ASCITES: A large amount of abdominal ascites. Lungs: There is a right pleural effusion. IMPRESSION: 1. Findings of hepatic cirrhosis with a large amount of abdominal ascites. 2. Cholelithiasis. No biliary ductal dilatation. 3. Asymmetric wall thickening seen in the fundus of the gallbladder. This can be seen with abdominal ascites but a mass cannot be excluded. 4. Right pleural effusion. 5. Results of this exam have been verbally communicated with provider. DATA REPOSITORY: Exam(s) MR ABDOMEN WO/W EXAM: MR ABDOMEN WO/W CLINICAL HISTORY: r/o gallbladder fundus mass, TECHNIQUE: Multiplanar multisequence MRA of the Abdomen was performed. CONTRAST MATERIAL: IV Contrast: 7 mL of Dotarem contrast administered. COMPARISON: CT CT ABDOMEN PELVIS W from 06/16/2020 US US ABDOMEN LIMITED from 07/04/2020 FINDINGS: Liver: No hepatic mass is identified. There is no intrahepatic biliary ductal dilatation. Following contrast administration no intrahepatic mass is seen. Pancreas: Unremarkable. Gallbladderand Bile Ducts: There are gallstones present. The largest measures 1.9 cm. There are numerous small gallstones noted. The gallbladder wall is thin. No gallbladder wall thickening or masses seen. There is no biliary ductal dilatation. There are no filling defects to suggest choledocholithiasis. Adrenals: Unremarkable. Kidneys: Unremarkable. Spleen: The spleen is enlarged measuring 13 cm. Aorta: Unremarkable. Soft Tissues: Unremarkable. Bone: Unremarkable. Lungs: There is a large right pleural effusion and a small left pleural effusion. Lymph Nodes: Unremarkable. Peritoneal cavity: There is a large amount of abdominal ascites. IMPRESSION: 1. Cholelithiasis. No choledocholithiasis or biliary ductal dilatation. 2. No evidence of gallbladder wall thickening or mass. 3. Large right effusion and small left pleural effusion. 4. Large abdominal ascites. 5. Splenomegaly. DATA REPOSITORY: Labs on day of discharge: Labs from last 24 hours 07/07/20 07/07/20 07/06/20 06:15 06:15 09:35 WBC 14.87 H RBC 2.80 L Hgb 10.6 L Hct 29.0 L MCV 103.6 H MCH 37.9 H MCHC 36.6 H RDW 12.4 Plt Count 93 L MPV 8.6 Immature Gran % 0.7 Neutrophils % 89.9 Lymphocytes % 2.1 Monocytes % 5.4 Eosinophils % 1.8 Basophils % 0.1 Nucleated RBC % 0 Absolute Neutrophils 13.37 H Absolute Lymphocytes 0.31 L Absolute Monocytes 0.80 Absolute Eosinophils 0.27 Absolute Basophils 0.01 RBC Morphology Normal Macrocytosis Sodium 122 L* Potassium 4.5 Chloride 91 L Carbon Dioxide 24.1 Anion Gap 6.9 BUN 9 Creatinine 0.6 Estimated GFR/1.73 m2 >= 60.00 Glucose 111 H Calcium 8.0 L Magnesium 1.9 Total Bilirubin 9.2 H AST 89 H ALT 38 Alkaline Phosphatase 289 H Ammonia 34 H Total Protein 4.6 L Albumin 1.8 L CEA Site Carcinoembryonic Ag Body Fluid Site Fluid Type Fluid LDH Perit Alpha Fetoprotein Peritoneal CEA Path Cons Comment 07/06/20 07/06/20 07/05/20 09:35 09:35 06:35 WBC 19.74 H D RBC 2.90 L Hgb 11.1 L Hct 30.8 L MCV 106.2 H MCH 38.3 H MCHC 36.0 RDW 12.5 Plt Count 109 L MPV 8.8 Immature Gran % 1.0 Neutrophils % 91.1 Lymphocytes % 1.9 Monocytes % 4.6 Eosinophils % 1.2 Basophils % 0.2 Nucleated RBC % 0 Absolute Neutrophils 17.98 H Absolute Lymphocytes 0.38 L Absolute Monocytes 0.91 H Absolute Eosinophils 0.24 Absolute Basophils 0.04 RBC Morphology See below Macrocytosis 1+ Sodium 121 L* Potassium 4.7 D Chloride 88 L Carbon Dioxide 24.6 Anion Gap 8.4 BUN 12 Creatinine 0.7 Estimated GFR/1.73 m2 >= 60.00 Glucose 147 H Calcium 8.1 L Magnesium Total Bilirubin AST ALT Alkaline Phosphatase Ammonia Total Protein Albumin CEA Site Carcinoembryonic Ag 1.9 Body Fluid Site Fluid Type Fluid LDH Perit Alpha Fetoprotein Peritoneal CEA Path Cons Comment 07/04/20 07/04/20 07/04/20 19:00 19:00 19:00 WBC RBC Hgb Hct MCV MCH MCHC RDW Plt Count MPV Immature Gran % Neutrophils % Lymphocytes % Monocytes % Eosinophils % Basophils % Nucleated RBC % Absolute Neutrophils Absolute Lymphocytes Absolute Monocytes Absolute Eosinophils Absolute Basophils RBC Morphology Macrocytosis Sodium Potassium Chloride Carbon Dioxide Anion Gap BUN Creatinine Estimated GFR/1.73 m2 Glucose Calcium Magnesium Total Bilirubin AST ALT Alkaline Phosphatase Ammonia Total Protein Albumin CEA Site Not Applicable Carcinoembryonic Ag Body Fluid Site Not Applicable Fluid Type Peritoneal Fluid LDH 22 Perit Alpha Fetoprotein 1.6 Peritoneal CEA <0.7 Path Cons Comment Preliminary micro results at discharge 07/04/20 19:00 Body Fluid Culture - Preliminary Peritoneal 07/04/20 19:00 Anaerobic Culture - Preliminary Abdomen 07/04/20 09:45 Blood Culture - Preliminary Blood NO GROWTH 48 HOURS 07/04/20 09:45 Blood Culture - Preliminary Blood NO GROWTH 48 HOURS PFSH Medical History Abnormal weight loss Acute cholecystitis Acute liver failure Advanced hepatic cirrhosis Gallstones Hyponatremia Leukocytosis Palliative care patient Portal hypertension with esophageal varices Social History Smoking/Tobacco Use Status: Never Smoking risk assessment performed?: Yes Alcohol Intake: former Drug use: Never Substance use type: does not use Do you feel safe at home: Yes Do you feel safe in your relationship?: Yes
[2020-07-07 09:48] LABS: AFP Tumor Marker 5.4 ng/mL (<8.1)
--- NOTE | 2020-07-07 10:00 | PDOC.HHF2F ---
Home Health Certification Home Health Certification: 1. Encounter Date and Reason I certify that Dorothea Jade was seen by Hattie Romo on 07/07/20 and that I had a [id number] encounter with this patient that meets the physician face to face encounter requirements. 2. Clinical Findings Supporting Skilled Need and Homebound Status I certify that home health services are medically necessary, include either intermittent retirement and/or physical/speech therapy, and that this patient is homebound in that absences from the home require considerable and taxing effort and are infrequent or of short duration, or are attributable to the need to receive medical care. [X] (a) Attached documentation from encounter provides clinical findings supporting skilled need and homebound status (including what assistance patient requires to leave the home). The encounter with the patient was in whole, or in part, for the following medical condition, which is the primary reason for home health care: Hyponatremia, ascities Mcc: Patient would benefit from nursing services to help with monitoring ascities, adl's, etc. Physical Therapy: Patient would benefit from PT for further strength along with OT to help with adl Homebound: Unable to leave home without assistance 3. Certification and Authentication I certify that I composed the above information based on my clinical judgement relating to this patient's medical condition and, if applicable, clinical findings communicated to me by the NPP or inpatient physician who performed the Home Health Referral. All further orders will be obtained through Sue Bhatia (Community Based Physician - PCP)
--- NOTE | 2020-07-07 10:21 | NUR.NOTE ---
Nursing Note: 1020: patient declines taking lactulose this am; patient states she has lots of bumps on the way home and I don't want to have an accident. patient is scheduled for discharge this morning and is agreeable to take medication once home.
--- NOTE | 2020-07-07 11:05 | PTTR_ITS ---
Date of service: 07/07/20 Time of Service: 10:35 PT Notes Visit Reasons: Hyponatremia, ascities Inpatient Physical Therapy Treatment Note [facility] Date: 07/07/2020 PRECAUTIONS:Fall SUBJECTIVE: Taty is smiling and happy this morning, stating she is very excited to be going home. She reports that her daughters will be coming up to her home today, and that they plan to go for an outdoor walk this afternoon. She also reports that her bought a cane from [employer] this morning for her to use. OBJECTIVE: PAIN: No c/o pain BED MOBILITY/TRANSFERS: Supine-sit: I Sit-stand: S Stand-sit: S GAIT: Assistive device: SPC Weight bearing: Full Assist: SBA Distance: 150' Deviation: LOB x1 with CGA for recovery THEREX: Patient was issued a LE and UE strengthening HEP. Exercises were reviewed. Patient was also issued yellow Theraband for UE strengthening completion. ASSESSMENT: Patient demonstrates increased unsteadiness with ambulation this morning. She attributes this to being in bed for so long. PLAN: Patient to continue with UE and LE strengthening HEP upon discharge to home. TREATMENT CODE/TIME: 10 minutes; 96591 (10:35)
[2020-07-07 13:31] LABS: Fluid Type PERITONEAL; Protein,Total, BF 0.8 g/dL
[2020-07-07 13:33] LABS: Amylase, BF 5 U/L; Fluid Type PERITONEAL; Fluid Type, Lipase PERITONEAL; Lipase, BF 5 U/L
--- NOTE | 2020-07-07 16:27 | PDOC.CMDIS ---
- If Service Date Differs Date of service: 07/07/20 Time of Service: 16:27 Care Management Discharge Reason for Hospitalization: Hyponatremia Discharge Plan: Taty will be discharged home with new home health services for PT, OT and nursing. She will follow up with her community providers and plan of care and transport with her .
--- NOTE | 2020-07-07 17:40 | PT.INDS ---
Date of service: 07/07/20 PT Notes Visit Reasons: Hyponatremia, ascities Physical Therapy Inpatient Discharge Summary Date: 07/07/2020 Dates of Service: 07/05/2020 through 07/07/2020 This is a clinical summary of care provided on the duration of dates listed above. No charge was made in the completion of this documentation. Referring Doctor: Hattie Romo NP PT Orders: PT CONSULT: Eval/treat. Precautions: Fall. Standard. Activity as tolerated. Patient Profile/Admitting Diagnosis: Dorothea is a 64-year-old female who presented to the ED on 07/04/2020 with abnormal laboratory results obtained the previous day prior to ED admission.? Patient is diagnosed with hyponatremia, acute liver failure, leukocytosis, and gallbladder mass and is status post paracentesis on postoperative day 1. PMHX: Medical History? Acute cholecystitis Acute liver failure Hyponatremia Leukocytosis Social History/Home Situation: Lives with in a private home with 3 steps to enter with bilateral rails.? Independent with all aspects of ADLs prior to admission although she having hard time getting up from a chair and has been holding onto furniture while she walks inside the house. Equipment Owned/DME: Front-wheeled walker, single-point cane Subjective: NT. See most recent [employer] SE[employer]ING ASSOCIATE notes. Objective: General Observation: NT. See most recent [employer] SE[employer]IATE notes. Mental Status: NT. See most recent [employer] SE[employer]IATE notes. Pain: NT. See most recent [employer] SE[employer]IATE notes. ROM: Right Upper Extremity: ? Shoulder Flexion WFL. Shoulder abduction WFL. Shoulder ER/IR WFL. Elbow flexion WFL. Forearm pronation/supination WFL. Wrist flexion WFL. Opening and closing of hand WFL. Left Upper Extremity:? Shoulder Flexion WFL. Shoulder abduction WFL. Shoulder ER/IR WFL. Elbow flexion WFL. Forearm pronation/supination WFL. Wrist flexion WFL. Opening and closing of hand WFL. Right Lower Extremity: Hip flexion WFL. Hip abduction WFL. Hip ER/IR WFL. Knee flexion WFL. Knee extension. Ankle dorsiflexion/eversion WFL. Ankle plantarflexion/inversion WFL. Left Lower Extremity: Hip flexion WFL. Hip abduction WFL. Hip ER/IR WFL. Knee flexion WFL. Knee extension. Ankle dorsiflexion WFL. Ankle plantarflexion WFL. Strength: Right Upper Extremity: Shoulder flexors 4-/5. Shoulder abductors 4-/5. Shoulder ER 4-/5. Shoulder IR 4-/5. Forearm pronators 4-/5. Forearm supinators 4-/5. Elbow flexors 4-/5. Elbow extensors 4-/5. [employer] strong. Left Upper Extremity: Shoulder flexors 4-/5. Shoulder abductors 4-/5. Shoulder ER 4-/5. Shoulder IR 4-/5. Forearm pronators 4-/5. Forearm supinators 4-/5. Elbow flexors 4-/5. Elbow extensors 4-/5. [employer] Cashier strong. Right Lower Extremity: Hip flexors 3+/5. Hip abductors 3+5/5. Hip external rotators 3+/5. Hip internal rotators 3+/5. Knee flexors 3+/5. Knee extensors 3+/5. Ankle dorsiflexors/evertors 4-/5. Ankle plantarflexors/invertors 4-/5. Left Lower Extremity: Hip flexors 3+/5. Hip abductors 3+5/5. Hip external rotators 3+/5. Hip internal rotators 3+/5. Knee flexors 3+/5. Knee extensors 3+/5. Ankle dorsiflexors/evertors 4-/5. Ankle plantarflexors/invertors 4-/5. Bed Mobility/Transfers: Sit to stand supervision Stand to sit supervision Chair to toilet seat supervision Toilet seat to chair supervision Gait: Distance of up to 150 feet with LOB x1 requiring contact guard assist for balance recovery and safety. Samantha decreased. Step height decreased. Step length decreased. Balance: Static Sitting: Normal Dynamic Sitting: Normal Static Standing: Fair Dynamic Standing: Fair Assessment: Dorothea demonstrates functional mobility decline requiring the use of a single point cane for all mobility ADL performance, generalized weakness, difficulty with walking, and increased fall risk due to admitting diagnosis. Patient will benefit from home health PT services in order to progress mobility level using least restrictive assistive ambulatory device, assess home safety, identify additional equipment needs, and establish a functional maintenance program that will increase ability of patient to remain at home. Patient continues to present with clinical signs and symptoms consistent with current/admitting diagnoses that have resulted to mobility limitations, gait instability, generalized weakness, and impairment of motor control as demonstrated by the following impairment level findings: 1.? Decreased strength to BLE/LE major muscle groups 2.? Impaired standing balance/toerlance 3.? Impaired activity tolerance Impairments are continuing to contribute to the following functional limitations: 1.? Increased dependence with transfers 2.? Inability to safely ambulate without assistive device and physical assistance 3.? Increase completion time for mobility ADL performance 4.? Increased fall risk 5.? Inability to negotiate steps alone safely Goals: Goals X1 week 1. Supine-Sit independent MET 2. Sit-Supine independent MET 3. Sit-Stand independent NOT MET 4. Stand-Sit independent NOT MET 5. Bed-Chair independent NOT MET 6. Chair-Bed independent NOT MET 7. Independent gait on level surface with use of single-point cane for at least 300 feet without report of pain nor dyspnea NOT MET 8. Independent stair negotiation while holding onto B rails for at least 3 steps without report of pain nor dyspnea NOT MET 9. Independent with home exercise program NOT MET 10. Good static and dynamic standing balance/tolerance NOT MET DISCHARGE RECOMMENDATIONS: SNF versus PT depending on trajectory of medical management. TREATMENT CODE/TIME: SC Thank you for the opportunity to participate in the care of this patient. Cele Leiva PT, DPT, CLT [facility] [place], [place]
== END 2020-07-07 11:04 | disposition home health service (06) | DRG 433 ==
LOC: ER 12:23 → MS 12:50
PROVIDERS: Nurse Practitioner Family; Surgery; Admitting Provider Family Medicine; Emergency Provider Physician Assistant; PCP Nurse Practitioner Family; Visit Provider Family Medicine
DX: K70.31 Alcoholic cirrhosis of liver with ascites (principal); E87.1 Hypo-osmolality and hyponatremia; Z68.1 Body mass index [BMI] 19.9 or less, adult; K76.6 Portal hypertension; I85.10 Secondary esophageal varices without bleeding; R64 Cachexia; K80.20 Calculus of gallbladder without cholecystitis without obstruction; Z20.822 Contact with and (suspected) exposure to COVID-19; F10.11 Alcohol abuse, in remission; K70.40 Alcoholic hepatic failure without coma
CPT/HCPCS: 49083; 36410; 36415; 74183; 80048; 80053; 82042; 82378; 83690; 86316; 87040; 87635; 89051; 93005; 96360; 96361; 97116; 97162; 97530; 99222; 99285; 71046; 76705; 80320; 81003; 81373; 82105; 82140; 82150; 83605; 83615; 83735; 83986; 84157; 84484; 85025; 85610; 85730; 87070; 87075; 87205; 88104; 93010; 99223; 99232; 99233; 99239; J1940; J2270; J3475; J3480

== ENCOUNTER 2020-07-15 16:01 | Emergency (ER) | payer MEDICARE, SELFPAY ==
[2020-07-15] VITALS (23 sets, daily range): BP systolic 80–97; BP diastolic 36–57; PULSE 79–97; RESP 11–27; TEMP 36.4; O2SAT 97–100
--- NOTE | 2020-07-15 16:15 | RT.EKG_ITS ---
APPROVED REPORT Exam: Resting ECG Reason for Exam: shortness of breath Patient Location: E HR:93 bpm ECG Measurements Heart Rate 93 AXIS AK 126 P 46 QRSd 84 QRS -14 QT 373 T 54 QTc 463 Conclusion Sinus rhythm...normal P axis, V-rate 60- 99 Low voltage, extremity leads...all extremity leads <0.5mV
[2020-07-15 16:32] LABS: Abs Immature Grans 0.13 10^3/uL (0.0-0.06); Absolute Basophil Count 0.04 10^3/uL (0.0-0.2); Basophils % 0.2; HCT 29.3 % (36.0-46.0); HGB 10.5 g/dL (11.2-15.7); Immature Grans % 0.7; Lymphocytes % 2.8; MCH 37.8 pg (27.0-33.0); MCHC 35.8 % (32.0-36.0); MCV 105.4 fL (80-95); MPV 8.6 fL (8.0-11.0); Monocytes % 6.9; Neutrophils % 87.4; Nucleated RBC 0 %; Platelet Count 106 10^3/uL (130-400); RBC 2.78 10^6/uL (3.93-5.22); RDW 13.2 % (11.7-14.6); WBC 19.56 10^3/uL (4.4-10.8)
[2020-07-15 16:43] LABS: Ammonia 17 umol/L (11-32)
[2020-07-15 16:58] LABS: Lipase 35 U/L (73-393)
[2020-07-15 17:00] LABS: INR 1.4 (0.9-1.1); Prothrombin Time 14.2 sec (9.3-11.0)
[2020-07-15 17:01] LABS: ALT 45 U/L (14-59); AST 76 U/L (15-37); Albumin 2.1 g/dL (3.4-5.0); Alkaline Phosphatase 355 U/L (46-116); Anion Gap 10.9 mmol/L (3-11); BUN 13 mg/dL (7-18); Bilirubin, Total 9.5 mg/dL (0.2-1.0); CO2 23.1 mmol/L (21.0-32.0); CREATININE 0.8 mg/dL (0.55-1.02); Calcium 8.6 mg/dL (8.5-10.1); Chloride 90 mmol/L (98-107); Glucose 140 mg/dL (74-106); Potassium 4.3 mmol/L (3.5-5.1); Total Protein 5.3 g/dL (6.4-8.2)
[2020-07-15 17:09] LABS: Sodium 124 mmol/L (136-145); Troponin I < 0.05 ng/mL (<0.06)
[2020-07-15 17:11] LABS: Absolute Eosinophil Count 0.39 10^3/uL (0.0-0.7); Absolute Lymphocyte Count 0.55 10^3/uL (1.2-3.4); Absolute Monocyte Count 1.35 10^3/uL (0.1-0.8)
[2020-07-15 17:12] LABS: Diff Comment RBC Morph Reviewed; Macrocytosis 3+
--- NOTE | 2020-07-15 17:30 | DI.RAD_ITS ---
Exam(s) XR CHEST 2V PA LATERAL EXAM: XR CHEST 2V PA LATERAL CLINICAL HISTORY: shortness of breath, leukocytosis. TECHNIQUE: 2D digital imaging was performed. COMPARISON: CR XR CHEST 2V PA LATERAL from 07/04/2020 FINDINGS: Chest leads in place. Heart size normal. Mediastinum is not widened. Mild increased markings left lower lobe are probably vascular. Small right pleural effusion again noted. Suggestion of small nod ular noncalcified density over the right lung base but this may be the breast nipple. No new infiltrates. IMPRESSION: Persistent small right pleural effusion. No new infiltrates. DATA REPOSITORY: RADIATION DOSE DELIVERED:
--- NOTE | 2020-07-15 17:55 | W.ED.GENAD ---
Discharge Plan Discharge Details Chief Complaint: Abd Prob Primary Care Provider: Sue Bhatia ED Provider: Zuly Burris Home Meds and New Rx's Prescriptions: No Action melatonin 3 mg Tablet 3 mg PO .QHS RF: 0 Multivitamin Gummies 200 mcg Tablet,Chewable 1 tab PO DAILY RF: 0 spironolactone 100 mg tablet 100 mg PO BID Qty: 60 RF: 0 furosemide [Lasix] 40 mg tablet 60 mg PO DAILY Qty: 45 RF: 0 lactulose 10 gram/15 mL solution 10 g PO DAILY Qty: 237 RF: 1 Medical Decision Making <TL Turner - Last Filed: 07/16/20 00:29> Patient is alert and oriented, she prefers that I communicate through her as she reports a few she feels unwell, she is seemingly unaware of the severity of her illness Is reassuring she have stopped drinking alcohol reportedly per confirmed She feels improvement after IV fluid and and oxycodone I diagnostic paracentesis was ordered and was negative for SBP, patient does have leukocytosis, she has a history of leukocytosis, slightly increased from 14-19 Her platelets are 106, consistent with her prior INR 1.4, bilirubin of 9.5, and sodium of 124, all consistent with prior evaluations No ultrasound able to be performed at this time secondary to lack of technologist No indication for CT imaging Initial plan was to admit patient, administer albumin, and perform therapeutic paracentesis Patient was discussed with Dr. Juarez, hospitalist who preferred that we contact [facility] given patient's hypotension which appears to be baseline in the past months [facility] feels that we are capable of managing this patient here and has declined this admission The consult hospitalist was again consulted regarding this patient and we subsequently called gastroenterology who also felt that aspiration via paracentesis with albumin administration, Lasix, and observation was reasonable Apparently the hospital did not have any intensive care beds and so Dr. Juarez evaluated the patient in the emergency room and consulted with [facility] who has subsequently agreed to take the patient at 12:30 in the morning on 07/16/2020, pending patient transfer at this time, I was asked to order albumin and midodrine for the patient which I have done, her blood pressure has remained stable for her throughout this encounter There is no evidence of obvious infectious etiology of patient's complaints She maintains alert and oriented status Has been has been cooperative and involved in all decision-making Pending stepdown placement at this time to [facility] and transportation I spent greater than 2 hours communicating with numerous hospital in managing this patient Differential Diagnosis Differential Diagnosis: SBP, cirrhosis, ascites, hepatorenal syndrome Medical Records Medical records reviewed: Yes I reviewed the patient's medical records. Lab Data Lab results reviewed: Yes I reviewed the patient's lab results. ECG Data Prior ECG tracings: available for review HPI <TL Turner - Last Filed: 07/16/20 00:29> General Mode of arrival: ambulatory. Date/Time Provider Initiated Documentation: 07/15/20 16:03. Limitations to Documentation: no limitations. Information obtained by: patient and family. HPI Narrative: This 64-year-old female with history of leukocytosis, hyponatremia, history of alcohol abuse, ascites, advanced hepatic cirrhosis, portal hypertension with esophageal varices presents with report of abdominal pain, swelling, and some shortness of breath. Patient reportedly has a recent history of cirrhosis diagnosed with with advanced disease. She stopped drinking mid-May reportedly. She denies any chest pain. She denies any fever or chills. She states but she started feeling worse throughout the day today. She was scheduled for paracentesis a week ago which was not performed reportedly. She denies any urinary complaint. She feels lightheaded and reportedly. Related Data Home Medications Medication Instructions Recorded Confirmed furosemide [Lasix] 60 mg PO DAILY #45 tab 07/07/20 07/15/20 lactulose 10 g PO DAILY #237 ml 07/07/20 07/15/20 spironolactone 100 mg PO BID #60 tab 07/07/20 07/15/20 melatonin 3 mg PO .QHS 07/15/20 07/15/20 multivit with min-folic acid 1 tab PO DAILY 07/15/20 07/15/20 [Multivitamin Gummies] Previous Rx's Medication Instructions Recorded furosemide [Lasix] 60 mg PO DAILY #45 tab 07/07/20 lactulose 10 g PO DAILY #237 ml 07/07/20 spironolactone 100 mg PO BID #60 tab 07/07/20 Allergies Allergy/AdvReac Type Severity Reaction Status Date / Time erythromycin base AdvReac Mild Nausea Unverified 07/15/20 16:18 General Stated Complaint: Abd Prob ARIANE: 3 Review of Systems <TL Turner - Last Filed: 07/16/20 00:29> Narrative: Review of systems obtained x7 aside from where indicated in HPI PFSH <TL Turner Last Filed: 07/16/20 00:29> Medical History Abnormal weight loss Acute cholecystitis Acute liver failure Advanced hepatic cirrhosis Gallstones Hyponatremia Leukocytosis Palliative care patient Portal hypertension with esophageal varices Social History Smoking/Tobacco Use Status: Never Smoking risk assessment performed?: Yes Alcohol Intake: former Drug use: Never Substance use type: does not use Details: no etoh since may Do you feel safe at home: Yes Do you feel safe in your relationship?: Yes Exam <TL Turner Last Filed: 07/16/20 00:29> Const General: cooperative, frail appearing and ill appearing Orientation: alert and oriented x3 HENMT Other: Most viscous membranes Eyes Other: Scleral icterus Resp Effort & Inspection: normal respiratory effort Auscultation: clear to auscultation bilaterally Cardio Rate: regular rate GI Other: Ascites noted, mild diffuse tenderness Skin Other: Jaundice Neuro General: patient alert and patient oriented x3 Extrem Other: 1+ edema to bilateral lower extremities Course <TL Turner Last Filed: 07/16/20 00:29> Vital Signs Vital signs: Vital Signs Temperature 36.4 C L 07/15/20 16:11 Pulse 96 H 07/15/20 16:11 Respiratory Rate 22 07/15/20 16:11 Blood Pressure 94/56 L 07/15/20 16:11 Pulse Oximetry 100 07/15/20 16:11 Temperature 36.4 C L 07/15/20 16:11 Temperature Source Skin 07/15/20 16:11 Pulse 88 07/15/20 17:15 Pulse 87 07/15/20 17:20 Respiratory Rate 19 07/15/20 17:20 Respiratory Effort 07/15/20 16:11 Blood Pressure 95/50 L 07/15/20 17:15 Blood Pressure Mean 61 07/15/20 17:15 Blood Pressure Position Sitting 07/15/20 16:11 Pulse Oximetry 99 07/15/20 17:20 Oxygen Delivery Method Room Air 07/15/20 16:11 Oxygen Flow Rate 0 07/15/20 16:11 Pain Level 7 07/15/20 16:21 Lab/Test Results Lab/Test Results: 07/15/20 17:35 Peritoneal Body Fluid Culture - Pending 07/15/20 17:35 Peritoneal Gram Stain - Pending Laboratory Tests Range/Units 07/15/20 07/15/20 07/15/20 16:15 16:15 16:15 WBC (4.4-10.8) 10^3/uL 19.56 H RBC (3.93-5.22) 10^6/uL 2.78 L Hgb (11.2-15.7) g/dL 10.5 L Hct (36.0-46.0) % 29.3 L MCV (80-95) fL 105.4 H MCH (27.0-33.0) pg 37.8 H MCHC (32.0-36.0) % 35.8 RDW (11.7-14.6) % 13.2 Plt Count (130-400) 10^3/uL 106 L MPV (8.0-11.0) fL 8.6 Immature Gran % 0.7 Neutrophils % 87.4 Lymphocytes % 2.8 Monocytes % 6.9 Eosinophils % 2.0 Basophils % 0.2 Nucleated RBC % % 0 Absolute Neutrophils (1.2-6.7) 10^3/uL 17.10 H Absolute Lymphocytes (1.2-3.4) 10^3/uL 0.55 L Absolute Monocytes (0.1-0.8) 10^3/uL 1.35 H Absolute Eosinophils (0.0-0.7) 10^3/uL 0.39 Absolute Basophils (0.0-0.2) 10^3/uL 0.04 RBC Morphology See below Macrocytosis 3+ PT (9.3-11.0) sec INR (0.9-1.1) Sodium (136-145) mmol/L 124 L Potassium (3.5-5.1) mmol/L 4.3 Chloride (98-107) mmol/L 90 L Carbon Dioxide (21.0-32.0) mmol/L 23.1 Anion Gap (3-11) mmol/L 10.9 BUN (7-18) mg/dL 13 Creatinine (0.55-1.02) mg/dL 0.8 Estimated GFR/1.73 m2 (mL/min/1.73m2) >= 60.00 Glucose (74-106) mg/dL 140 H Calcium (8.5-10.1) mg/dL 8.6 Magnesium (1.8-2.4) mg/dL Total Bilirubin (0.2-1.0) mg/dL 9.5 H AST (15-37) U/L 76 H ALT (14-59) U/L 45 Alkaline Phosphatase (46-116) U/L 355 H Ammonia (11-32) umol/L 17 Troponin I (<0.06) ng/mL Total Protein (6.4-8.2) g/dL 5.3 L Albumin (3.4-5.0) g/dL 2.1 L Lipase (73-393) U/L Range/Units 07/15/20 07/15/20 07/15/20 16:15 16:15 16:15 WBC (4.4-10.8) 10^3/uL RBC (3.93-5.22) 10^6/uL Hgb (11.2-15.7) g/dL Hct (36.0-46.0) % MCV (80-95) fL MCH (27.0-33.0) pg MCHC (32.0-36.0) % RDW (11.7-14.6) % Plt Count (130-400) 10^3/uL MPV (8.0-11.0) fL Immature Gran % Neutrophils % Lymphocytes % Monocytes % Eosinophils % Basophils % Nucleated RBC % % Absolute Neutrophils (1.2-6.7) 10^3/uL Absolute Lymphocytes (1.2-3.4) 10^3/uL Absolute Monocytes (0.1-0.8) 10^3/uL Absolute Eosinophils (0.0-0.7) 10^3/uL Absolute Basophils (0.0-0.2) 10^3/uL RBC Morphology Macrocytosis PT (9.3-11.0) sec 14.2 H INR (0.9-1.1) 1.4 H Sodium (136-145) mmol/L Potassium (3.5-5.1) mmol/L Chloride (98-107) mmol/L Carbon Dioxide (21.0-32.0) mmol/L Anion Gap (3-11) mmol/L BUN (7-18) mg/dL Creatinine (0.55-1.02) mg/dL Estimated GFR/1.73 m2 (mL/min/1.73m2) Glucose (74-106) mg/dL Calcium (8.5-10.1) mg/dL Magnesium (1.8-2.4) mg/dL 2.0 Total Bilirubin (0.2-1.0) mg/dL AST (15-37) U/L ALT (14-59) U/L Alkaline Phosphatase (46-116) U/L Ammonia (11-32) umol/L Troponin I (<0.06) ng/mL < 0.05 Total Protein (6.4-8.2) g/dL Albumin (3.4-5.0) g/dL Lipase (73-393) U/L 35 <Hernando Styles MD - Last Filed: 07/15/20 18:00> Paracentesis Time Out Performed: Yes Local Anesthetic: Lidocaine 1% and with Epi Amount of anesthesia used (mL): 4 Fluid: clear (30 cc obtained) Post Procedure Exam: awake, alert, normal BP (unchanged BP), normal HR and normal SpO2 Patient Tolerated Procedure: well Complications: none
[2020-07-15] MEDS: Normal Saline 500 ML IV (17:58)
[2020-07-15] MEDS: oxyCODONE 5 MG TAB PO (17:58)
[2020-07-15 18:22] LABS: Clarity Clear; Nucleated Cells 70 uL (0); Source Peritoneal
--- NOTE | 2020-07-15 19:09 | DI.VRAD_ITS ---
PROCEDURE INFORMATION: Exam: XR Chest Exam date and time: 07/15/2020 5:31 PM Age: 64 years old Clinical indication: Patient HX: Shortness of breath, leukocytosis TECHNIQUE: Imaging protocol: XR of the chest. Views: 2 views. COMPARISON: CR XR CHEST 2V PA LATERAL 07/04/2020 10:42 AM FINDINGS: Lungs: Lungs are clear. Left nipple shadow apparent. Pleural spaces: Small right pleural effusion persists. Heart/Mediastinum: Unremarkable. No cardiomegaly. Bones/joints: Prior right midclavicular fracture, now well healed. Soft tissues: Unremarkable. IMPRESSION: 1. Persistent small right pleural effusion. 2. No airspace consolidation to suggest pneumonia. Dictated and Authenticated by: Aung Richard MD. Ordering:VIC Caruso MD
[2020-07-15 19:44] LABS: Mononuclear Cells 86 %; Polynuclear Cells 14 %
[2020-07-15 19:45] LABS: Source Nasal/Nares
[2020-07-15 22:16] LABS: COVID-19 PCR Negative (Negative)
--- NOTE | 2020-07-16 00:06 | W.MEDCONSULT ---
Date of service: 07/16/20 Time of Service: 23:00 Assessment and Plan Assessment and plan (1) Ascites due to alcoholic cirrhosis: Status: Acute Assessment and plan: We do not currently have ICU beds at our facility and the patient's blood pressure is lower than her baseline, which presents a concern for paracenthesis, if her goals of care are to be full code. Agree with recommendations of [facility] team that she would need albumin and midodrine prior to any paracenthesis. I feel she is more appropriate for a step-down level of care which we do not have available. The patient should be considered for TIPS procedure. Her MELD score is 27, and prognosis is poor. Hospice consult whether inpatient or outpatient. We thank [facility] clinical team for help in taking care of Ms Jade and wish the patient well. (2) Hypotension: Status: Acute (3) Portal hypertension with esophageal varices: Status: Chronic (4) Advanced hepatic cirrhosis: Status: Chronic (5) Jaundice: Status: Acute History of Present Illness History of Present Illness Chief Complaint: Abdominal pain, shortness of breath Narrative: Ms Jade is a 64 year old female with alcoholic cirrhosis with h/o portal hypertension with esophageal varices, hepatic encephalopathy, thrombocytopenia, coagulopathy, hyponatremia, and chronic leucocytosis who is full code and presented to [facility] ED with abdominal pain and shortness of breath due to this starting earlier today. The patient states that her whole left side of the abdomen, and especially so under the ribs, hurts. Denies fever. Feels thirsty. Denies cough. Denies urinary symptoms. Fully vaccinated against COVID-19 (2nd dose was in June) and denies exposures to anyone with COVID-19. BP in the ED went down from 94/56 to 81/36, despite a bolus of IVF. She is clinically vascularly depleted. Diagnostic paracenthesis removed 30 ccs and peritoneal fluid analysis was negative for SBP. The patient's case was discussed with [facility] hospitalist medicine and critical care medicine. We do not have any open ICU beds at this time. The nursing at our facility expressed concerns with taking care this patient on the medical surgical floor. She does need a paracenthesis, but should receive albumin 50 grams and midodrine prior, per [facility] clinical team. She was accepted into a step-down bed at [facility] by Dr Iverson, whose assistance is greatly appreciated. The patient has refractory ascites and should be considered for TIPS procedure and/or hospice consult. She is firmly full code per my conversation with her and her , despite my telling them that she has a terminal condition which will likely result in soon. Review of Systems All systems reviewed & are unremarkable except as noted in HPI and below [facility] Medical History (Updated 07/16/20 @ 00:29 by Serina Juarez MD) Abnormal weight loss Acute cholecystitis Acute liver failure Advanced hepatic cirrhosis Alcoholic cirrhosis of liver with ascites Ascites due to alcoholic cirrhosis Coagulopathy Gallstones Hepatic encephalopathy Hyponatremia Leukocytosis Palliative care patient Portal hypertension with esophageal varices Thrombocytopenia Social History Smoking/Tobacco Use Status: Never Smoking risk assessment performed?: Yes Alcohol Intake: former Drug use: Never Substance use type: does not use Details: no etoh since may Do you feel safe at home: Yes Do you feel safe in your relationship?: Yes Exam Narrative Exam Narrative: General: Pleasant frail tired appearing middle-aged female who is jaundiced, A&Ox3, has difficulty understanding some of my questions Neurological: A&Ox3, but is slightly encephalopathic Psychiatric: appropriate speech pattern/content Skin: dry, jaundiced HEENT: Atraumatic, normocephalic, christian wasting, EOMI, dry MM, clear oropharynx, no submadinbular or cervical lymphadenopathy, no goiter or JVD Cardiovascular: RRR, no m/r/g Lungs: Diminished breath sounds at B bases Gastrointestinal: Ascites, TTP LUQ Genitourinary: dferred Extremities: +1 BLE edema in TEDs Results Last Vital Signs Temp 36.4 C L 07/15/20 16:11 Pulse 79 07/15/20 18:30 Resp 13 07/15/20 18:51 BP 81/36 L 07/15/20 18:30 Pulse Ox 99 07/15/20 18:31 Labs Result diagrams: 07/15/20 16:15 07/15/20 16:15 Labs: Laboratory Results - last 24 hr 07/15/20 07/15/20 07/15/20 16:15 16:15 16:15 WBC 19.56 H RBC 2.78 L Hgb 10.5 L Hct 29.3 L MCV 105.4 H MCH 37.8 H MCHC 35.8 RDW 13.2 Plt Count 106 L MPV 8.6 Immature Gran % 0.7 Neutrophils % 87.4 Lymphocytes % 2.8 Monocytes % 6.9 Eosinophils % 2.0 Basophils % 0.2 Nucleated RBC % 0 Absolute Neutrophils 17.10 H Absolute Lymphocytes 0.55 L Absolute Monocytes 1.35 H Absolute Eosinophils 0.39 Absolute Basophils 0.04 RBC Morphology See below Macrocytosis 3+ PT INR VBG Lactate Sodium 124 L Potassium 4.3 Chloride 90 L Carbon Dioxide 23.1 Anion Gap 10.9 BUN 13 Creatinine 0.8 Estimated GFR/1.73 m2 >= 60.00 Glucose 140 H Calcium 8.6 Magnesium Total Bilirubin 9.5 H AST 76 H ALT 45 Alkaline Phosphatase 355 H Ammonia 17 Troponin I Total Protein 5.3 L Albumin 2.1 L Lipase Fluid Source Fluid Color Fluid Clarity Fluid WBC Fld Polynuclear WBCs % Fluid Mononuclear Cell Fluid Other Cells COVID-19 Source SARS-CoV-2 (PCR) 07/15/20 07/15/20 07/15/20 16:15 16:15 16:15 WBC RBC Hgb Hct MCV MCH MCHC RDW Plt Count MPV Immature Gran % Neutrophils % Lymphocytes % Monocytes % Eosinophils % Basophils % Nucleated RBC % Absolute Neutrophils Absolute Lymphocytes Absolute Monocytes Absolute Eosinophils Absolute Basophils RBC Morphology Macrocytosis PT 14.2 H INR 1.4 H VBG Lactate Sodium Potassium Chloride Carbon Dioxide Anion Gap BUN Creatinine Estimated GFR/1.73 m2 Glucose Calcium Magnesium 2.0 Total Bilirubin AST ALT Alkaline Phosphatase Ammonia Troponin I < 0.05 Total Protein Albumin Lipase 35 Fluid Source Fluid Color Fluid Clarity Fluid WBC Fld Polynuclear WBCs % Fluid Mononuclear Cell Fluid Other Cells COVID-19 Source SARS-CoV-2 (PCR) 07/15/20 07/15/20 07/15/20 17:35 17:55 19:30 WBC RBC Hgb Hct MCV MCH MCHC RDW Plt Count MPV Immature Gran % Neutrophils % Lymphocytes % Monocytes % Eosinophils % Basophils % Nucleated RBC % Absolute Neutrophils Absolute Lymphocytes Absolute Monocytes Absolute Eosinophils Absolute Basophils RBC Morphology Macrocytosis PT INR VBG Lactate 2.0 H Sodium Potassium Chloride Carbon Dioxide Anion Gap BUN Creatinine Estimated GFR/1.73 m2 Glucose Calcium Magnesium Total Bilirubin AST ALT Alkaline Phosphatase Ammonia Troponin I Total Protein Albumin Lipase Fluid Source Peritoneal Fluid Color Yellow Fluid Clarity Clear Fluid WBC 70 Fld Polynuclear WBCs % 14 Fluid Mononuclear Cell 86 Fluid Other Cells COVID-19 Source Nasal/nares SARS-CoV-2 (PCR) Negative
[2020-07-16] MEDS: Midodrine 2.5 MG TAB 5 MG PO (02:15)
[2020-07-16] MEDS: ALBUMIN HUMAN 25 GM/100 ML BTL IV (02:17)
== END 2020-07-16 02:40 ==
PROVIDERS: Emergency Provider Physician Assistant; PCP Nurse Practitioner Family
DX: R10.9 Unspecified abdominal pain; Z20.822 Contact with and (suspected) exposure to COVID-19; I95.9 Hypotension, unspecified; K76.6 Portal hypertension; I85.00 Esophageal varices without bleeding; K74.60 Unspecified cirrhosis of liver; K70.31 Alcoholic cirrhosis of liver with ascites
CPT/HCPCS: 49082; 80053; 83690; 87635; 93005; 96361; 96374; 99283; 99285; 71046; 82040; 82140; 83605; 83735; 84484; 85025; 85610; 87070; 87205; 89051; 93010; 99284

== ENCOUNTER 2020-07-22 16:57 | Inpatient (IN) | payer MEDICARE, SELFPAY ==
[2020-07-22] VITALS (29 sets, daily range): BP systolic 88–105; BP diastolic 49–69; PULSE 79–103; RESP 12–27; TEMP 35.7–37.9; O2SAT 64–100
--- NOTE | 2020-07-22 17:24 | ED.GENADUL_ITS ---
Discharge Plan Disposition Patient Disposition: [facility] INPATIENT Condition: Fair Discharge Details Clinical Impression: Fever, Generalized weakness, Confusion, Alcoholic cirrhosis of liver with ascites, Pneumonia Admit Date/Time: 07/22/20 20:52 Admit Provider: Woo Gonzalez Attending Provider: Woo Gonzalez Primary Care Provider: Sue Bhatia ED Provider: Elvie Putnam Discharge Data Discharge Date/Time-TO BE ENTERED AT DEPARTURE: 07/22/20 22:16 Medical Decision Making 64-year-old female with a history of alcoholic cirrhosis and ascites presents from home for weakness, body aches, hypotension. She was discharged to home from [facility] 2 days ago for alcoholic cirrhosis with ascites after having multiple albumin transfusions for hypotension. She was sent home on midodrine and rifaximin. Her diagnostic tap from the ED last week noted negative fluid cultures. Her temperature is 100.2 on arrival. Blood pressure 99/55. Patient appears chronically ill. She has scleral icteric. Her abdomen is soft but mildly dis tended. We will obtain screening labs, CT chest abdomen and pelvis, Covid swab, urinalysis. Labs reviewed. White blood cell count 10. Hemoglobin 8.6, review of records from [facility] 2 days ago note that her gynecology practice for discharge. Platelets 88 which has been chronic. INR 1.6 which is near baseline. Troponin negative. Ammonia minimally elevated at 35. T bili 5.1. AST 40. Alk phos 248. Total protein 5.1. Albumin 2.9. Discussed with [facility] gastroenterology. They recommend albumin if patient has any evidence of TWILA. Her GFR and creatinine are within normal limits. R ecommend to continue midodrine and rifaximin. Recommend infectious work-up for further work-up of her fever including diagnostic paracentesis. A diagnostic paracentesis was performed at bedside under ultrasound guidance with 30 cc of clear yellow fluid removed. Case discussed with hospitalist who was made aware of plan for patient need to stay for continued monitoring. She is planning to go to [facility] in 3 days for assisted living. She may need a higher level of rehab or assisted living. CT chest notes bilateral pleural effusions, right greater than left with an infiltrate in the left upper lobe. CT abdomen pelvis notes ascites, gallstones, anasarca with splenomegaly and mild cirrhosis. Urinalysis appears unremarkable. Will treat potential pneumonia with IV antibiotics. Case discussed with hospitalist accepts patient for admission for IV antibiotics, plan for PT OT, and discharge planning as patient likely will not be able to go home due to her and her 's inability to care for at home at this time. Medical Records Medical records reviewed: Yes I reviewed the patient's medical records. Imaging Data Radiologic Study: Radiologist's impression: CTA Chest With Contrast Exam date and time: 07/22/2020 6:12 PM Age: 64 years old Clinical indication: Cough and fever and shortness of breath; Difficulty breathing or dyspnea and fever TECHNIQUE: Imaging protocol: Computed tomographic angiography of the chest with contrast. 3D rendering (Not supervised by radiologist): MIP and/or 3D reconstructed images were created by the technologist. Radiation optimization: All CT scans at this facility use at least one of these dose optimization techniques: automated exposure control; mA and/or kV adjustment per patient size (includes targeted exams where dose is matched to clinical indication); or iterative reconstruction. Contrast material: OMNIPAQUE 350; Contrast volume: 75 ml; Contrast route: INTRAVENOUS (IV);? COMPARISON: CR XR CHEST 2V PA LATERAL 07/15/2020 6:43 PM FINDINGS: Pulmonary arteries: Normal. No pulmonary emboli. Aorta: Unremarkable. No aortic aneurysm. No aortic dissection. Lungs: Infiltrate in the left upper lobe. Pneumonia is not excluded. Pleural spaces: Bilateral pleural effusions and adjacent atelectasis. Right greater than left. Heart: Unremarkable. No cardiomegaly. No pericardial effusion. Lymph nodes: Unremarkable. No enlarged lymph nodes. Bones/joints: Unremarkable. No acute fracture. Soft tissues: Unremarkable. IMPRESSION: 1. Bilateral pleural effusions and adjacent atelectasis. Right greater than left. 2. Infiltrate in the left upper lobe. Pneumonia is not excluded. PROCEDURE INFORMATION: Exam: CT Angiography Abdomen With Contrast Exam date and time: 07/22/2020 6:12 PM Age: 64 years old Clinical indication: Cough and fever and shortness of breath; Difficulty breathing or dyspnea and fever TECHNIQUE: Imaging protocol: Computed tomographic angiography images of the abdomen with intravenous contrast material. 3D rendering (Not supervised by radiologist): MIP and/or 3D reconstructed images were created by the technologist. Radiation optimization: All CT scans at this facility use at least one of these dose optimization techniques: automated exposure control; mA and/or kV adjustment per patient size (includes targeted exams where dose is matched to clinical indication); or iterative reconstruction. Contrast material: OMNIPAQUE 350; Contrast volume: 75 ml; Contrast route: INTRAVENOUS (IV);? COMPARISON: CR XR CHEST 2V PA LATERAL 07/15/2020 6:43 PM FINDINGS: Aorta: Atherosclerosis. Celiac trunk and mesenteric arteries: No occlusion or significant stenosis. Renal arteries: No occlusion or significant stenosis. Liver: Scattered hepatic cysts. These measure up to 1 cm. Mild cirrhosis. Gallbladder and bile ducts: Gallstones. Pancreas: Normal. No ductal dilation. Spleen: Splenomegaly measuring 14 cm. Adrenals: Normal. No mass. Kidneys and ureters: Normal. No hydronephrosis. Stomach and bowel: Unremarkable. No obstruction. No mucosal thickening. Lymph nodes: Unremarkable. No enlarged lymph nodes. Intraperitoneal space: Ascites. The mesentery is edematous. Bones/joints: Scoliosis. Soft tissues: Anasarca. IMPRESSION: 1. Ascites. 2. Gallstones. 3. The mesentery is edematous. 4. Anasarca. 5. Splenomegaly measuring 14 cm. 6. Mild cirrhosis. No hepatic masses. Lab Data Lab results reviewed: Yes I reviewed the patient's lab results. Labs: 07/22/20 18:45 Peritoneal Body Fluid Culture - Pending 07/22/20 18:45 Peritoneal Gram Stain - Pending 07/22/20 18:13 Blood Blood Culture - Pending 07/22/20 18:00 Blood Blood Culture - Pending Laboratory Tests Range/Units 07/22/20 07/22/20 07/22/20 18:00 18:00 18:00 WBC (4.4-10.8) 10^3/uL RBC (3.93-5.22) 10^6/uL Hgb (11.2-15.7) g/dL Hct (36.0-46.0) % MCV (80-95) fL MCH (27.0-33.0) pg MCHC (32.0-36.0) % RDW (11.7-14.6) % Plt Count (130-400) 10^3/uL MPV (8.0-11.0) fL Immature Gran % Neutrophils % Lymphocytes % Monocytes % Eosinophils % Basophils % Nucleated RBC % % Absolute Neutrophils (1.2-6.7) 10^3/uL Absolute Lymphocytes (1.2-3.4) 10^3/uL Absolute Monocytes (0.1-0.8) 10^3/uL Absolute Eosinophils (0.0-0.7) 10^3/uL Absolute Basophils (0.0-0.2) 10^3/uL RBC Morphology Poikilocytosis Anisocytosis Macrocytosis PT (9.3-11.0) sec 16.1 H INR (0.9-1.1) 1.6 H APTT (21.0-27.5) sec 29.2 H VBG Lactate (0.6-1.4) mmol/L Sodium (136-145) mmol/L 135 L Potassium (3.5-5.1) mmol/L 4.4 Chloride (98-107) mmol/L 101 Carbon Dioxide (21.0-32.0) mmol/L 26.4 Anion Gap (3-11) mmol/L 7.6 BUN (7-18) mg/dL 14 Creatinine (0.55-1.02) mg/dL 0.6 Estimated GFR/1.73 m2 (mL/min/1.73m2) >= 60.00 Glucose (74-106) mg/dL 134 H Calcium (8.5-10.1) mg/dL 8.8 Magnesium (1.8-2.4) mg/dL 1.8 Total Bilirubin (0.2-1.0) mg/dL 5.1 H AST (15-37) U/L 40 H ALT (14-59) U/L 25 Alkaline Phosphatase (46-116) U/L 248 H Ammonia (11-32) umol/L 35 H Troponin I (<0.06) ng/mL < 0.05 Total Protein (6.4-8.2) g/dL 5.1 L Albumin (3.4-5.0) g/dL 2.9 L Urine Color (Yellow) Urine Clarity (Clear) Urine pH (5-8) Ur Specific [place] (1.005-1.025) Urine Protein (Negative) mg/dL Urine Ketones (Negative) mg/dL Urine Blood (Negative) Urine Nitrite (Negative) Urine Bilirubin (Negative) Urine Urobilinogen (Up TO 0.2) EU/dL Ur Leukocyte Esterase (Negative) Urine Glucose (Negative) mg/dL COVID-19 Source Range/Units 07/22/20 07/22/20 07/22/20 18:00 19:00 19:27 WBC (4.4-10.8) 10^3/uL 10.74 RBC (3.93-5.22) 10^6/uL 2.23 L Hgb (11.2-15.7) g/dL 8.6 L Hct (36.0-46.0) % 24.4 L MCV (80-95) fL 109.4 H MCH (27.0-33.0) pg 38.6 H MCHC (32.0-36.0) % 35.2 RDW (11.7-14.6) % 14.6 Plt Count (130-400) 10^3/uL 88 L MPV (8.0-11.0) fL 8.9 Immature Gran % 0.7 Neutrophils % 85.3 Lymphocytes % 3.8 Monocytes % 7.8 Eosinophils % 2.0 Basophils % 0.4 Nucleated RBC % % 0 Absolute Neutrophils (1.2-6.7) 10^3/uL 9.16 H Absolute Lymphocytes (1.2-3.4) 10^3/uL 0.41 L Absolute Monocytes (0.1-0.8) 10^3/uL 0.84 H Absolute Eosinophils (0.0-0.7) 10^3/uL 0.22 Absolute Basophils (0.0-0.2) 10^3/uL 0.04 RBC Morphology See below Poikilocytosis 1+ Anisocytosis 1+ Macrocytosis 2+ PT (9.3-11.0) sec INR (0.9-1.1) APTT (21.0-27.5) sec VBG Lactate (0.6-1.4) mmol/L 1.1 Sodium (136-145) mmol/L Potassium (3.5-5.1) mmol/L Chloride (98-107) mmol/L Carbon Dioxide (21.0-32.0) mmol/L Anion Gap (3-11) mmol/L BUN (7-18) mg/dL Creatinine (0.55-1.02) mg/dL Estimated GFR/1.73 m2 (mL/min/1.73m2) Glucose (74-106) mg/dL Calcium (8.5-10.1) mg/dL Magnesium (1.8-2.4) mg/dL Total Bilirubin (0.2-1.0) mg/dL AST (15-37) U/L ALT (14-59) U/L Alkaline Phosphatase (46-116) U/L Ammonia (11-32) umol/L Troponin I (<0.06) ng/mL Total Protein (6.4-8.2) g/dL Albumin (3.4-5.0) g/dL Urine Color (Yellow) Yellow Urine Clarity (Clear) Clear Urine pH (5-8) 6.0 Ur Specific [place] (1.005-1.025) <= 1.005 Urine Protein (Negative) mg/dL Negative Urine Ketones (Negative) mg/dL Negative Urine Blood (Negative) Negative Urine Nitrite (Negative) Negative Urine Bilirubin (Negative) Negative Urine Urobilinogen (Up TO 0.2) EU/dL 4.0 H Ur Leukocyte Esterase (Negative) Negative Urine Glucose (Negative) mg/dL Negative COVID-19 Source Range/Units 07/22/20 19:40 WBC (4.4-10.8) 10^3/uL RBC (3.93-5.22) 10^6/uL Hgb (11.2-15.7) g/dL Hct (36.0-46.0) % MCV (80-95) fL MCH (27.0-33.0) pg MCHC (32.0-36.0) % RDW (11.7-14.6) % Plt Count (130-400) 10^3/uL MPV (8.0-11.0) fL Immature Gran % Neutrophils % Lymphocytes % Monocytes % Eosinophils % Basophils % Nucleated RBC % % Absolute Neutrophils (1.2-6.7) 10^3/uL Absolute Lymphocytes (1.2-3.4) 10^3/uL Absolute Monocytes (0.1-0.8) 10^3/uL Absolute Eosinophils (0.0-0.7) 10^3/uL Absolute Basophils (0.0-0.2) 10^3/uL RBC Morphology Poikilocytosis Anisocytosis Macrocytosis PT (9.3-11.0) sec INR (0.9-1.1) APTT (21.0-27.5) sec VBG Lactate (0.6-1.4) mmol/L Sodium (136-145) mmol/L Potassium (3.5-5.1) mmol/L Chloride (98-107) mmol/L Carbon Dioxide (21.0-32.0) mmol/L Anion Gap (3-11) mmol/L BUN (7-18) mg/dL Creatinine (0.55-1.02) mg/dL Estimated GFR/1.73 m2 (mL/min/1.73m2) Glucose (74-106) mg/dL Calcium (8.5-10.1) mg/dL Magnesium (1.8-2.4) mg/dL Total Bilirubin (0.2-1.0) mg/dL AST (15-37) U/L ALT (14-59) U/L Alkaline Phosphatase (46-116) U/L Ammonia (11-32) umol/L Troponin I (<0.06) ng/mL Total Protein (6.4-8.2) g/dL Albumin (3.4-5.0) g/dL Urine Color (Yellow) Urine Clarity (Clear) Urine pH (5-8) Ur Specific [place] (1.005-1.025) Urine Protein (Negative) mg/dL Urine Ketones (Negative) mg/dL Urine Blood (Negative) Urine Nitrite (Negative) Urine Bilirubin (Negative) Urine Urobilinogen (Up TO 0.2) EU/dL Ur Leukocyte Esterase (Negative) Urine Glucose (Negative) mg/dL COVID-19 Source Nasopharyx ECG Data Attestation: I personally reviewed and interpreted this ECG (s) as follows: Interpretation: Rate of 91, sinus, no STEMI. HPI General Mode of arrival: ambulatory . Date/Time Provider Initiated Documentation: 07/22/20 16:58 . Limitations to Documentation: no limitations . Information obtained by: patient . HPI Narrative: Patient is a 64-year-old female with a history of alcoholic cirrhosis with ascites presents for inability to be cared for by her at home and confusion. Patient was seen here 1 week ago and transferred to [facility] for alcoholic cirrhosis and hypertension. She was discharged from there 2 days ago to home. and patient states she has been unable to manage at home that she is extremely weak and requires significant assistance with ambulation. Patient admits to diffuse body aches. She was unaware of having a fever. She has also had hypotension continually at home which has been chronic at times. She admits to a dry cough and chronic abdominal pain but states this is no worse than usual. She denies any headache, chest pain, shortness of breath, vomiting, diarrhea. She does admit to urinary frequency. She has been eating and drinking Related Data Home Medications Medication Instructions Recorded Confirmed furosemide [Lasix] 60 mg PO DAILY #45 tab 07/07/20 07/22/20 lactulose 10 g PO DAILY #237 ml 07/07/20 07/22/20 spironolactone 100 mg PO BID #60 tab 07/07/20 07/22/20 melatonin 3 mg PO .QHS 07/15/20 07/22/20 multivit with min-folic acid 1 tab PO DAILY 07/15/20 07/22/20 [Multivitamin Gummies] ciprofloxacin HCl 100 mg PO DAILY AM 07/22/20 07/22/20 ciprofloxacin HCl 250 mg PO DAILY AM 07/22/20 07/22/20 midodrine 10 mg PO TID 07/22/20 07/22/20 Previous Rx's Medication Instructions Recorded furosemide [Lasix] 60 mg PO DAILY #45 tab 07/07/20 lactulose 10 g PO DAILY #237 ml 07/07/20 spironolactone 100 mg PO BID #60 tab 07/07/20 Allergies Allergy/AdvReac Type Severity Reaction Status Date / Time erythromycin base AdvReac Mild Nausea Unverified 07/15/20 16:18 General Stated Complaint: GenMedical ARIANE: 3 Review of Systems All systems reviewed & are unremarkable except as noted in HPI and below Constitutional Constitutional: Reports as per HPI, Reports body ache(s), Denies chills, Reports fatigue, Denies fever(s) and Reports malaise Eyes Eyes: Denies blurry vision ENT Ears, Nose, Mouth, and Throat: Denies dizziness, Denies sore throat and Denies throat swelling Cardiovascular Cardiovascular: Denies chest pain and Denies dyspnea Respiratory Respiratory: Denies cough and Denies dyspnea Gastrointestinal Gastrointestinal: Denies abdominal pain, Denies diarrhea and Denies vomiting Genitourinary Genitourinary: Denies hematuria and Denies dysuria Musculoskeletal Musculoskeletal: Denies back pain and Denies numbness Integumentary/Breasts Skin/Breast: Denies lesions and Denies rash Neurologic Neurologic: Denies dizziness, Denies localized weakness and Denies numbness Endocrine Endocrine: Reports fatigue Allergic/Immunologic Allergic/Immunologic: Denies throat swelling [facility] Medical History (Updated 07/22/20 @ 20:10 by Elvie Putnam DO) Abnormal weight loss Acute cholecystitis Acute liver failure Advanced hepatic cirrhosis Alcoholic cirrhosis of liver with ascites Ascites due to alcoholic cirrhosis Coagulopathy Gallstones Hepatic encephalopathy Hyponatremia Leukocytosis Palliative care patient Portal hypertension with esophageal varices Thrombocytopenia Social History Smoking/Tobacco Use Status: Never Smoking risk assessment performed?: Yes Alcohol Intake: former Drug use: Never Substance use type: does not use Details: no etoh since may Do you feel safe at home: Yes Do you feel safe in your relationship?: Yes Exam Const General: cooperative and no acute distress HENMT Head: normal to inspection Eyes General: appearance normal, both eyes and all related structures Sclera: scleral abnormality bilaterally (scleral icterus) EOM: EOM intact bilaterally Neck Neck: normal visual inspection and No submandibular swelling Lymphatic: no lymphadenopathy noted Chest Chest: normal inspection of the chest and no tenderness Resp Effort & Inspection: normal respiratory effort and able to speak in complete sentences Auscultation: clear to auscultation bilaterally Cardio Rate: regular rate Rhythm: regular rhythm GI Inspection: distended Palpation: soft, not firm, not rigid and nontender Auscultation: normal bowel sounds and hypoactive bowel sounds Skin General skin exam: no rashes or lesions noted Neuro General: patient alert, patient awake and patient oriented x3 Cognition: normal cognition Speech: speech normal Motor: muscle tone normal throughout Sensory Exam: no sensory deficits noted Extrem General: normal to inspection, full ROM, capillary refill normal, no calf tenderness bilaterally and no edema Psych Appearance: grossly normal Mental Status: mental status grossly normal Speech and Movement: speech and movement normal Affect: normal affect Course Vital Signs Vital signs: Vital Signs Temperature 100.2 F H 07/22/20 17:08 Pulse 103 H 07/22/20 17:08 Respiratory Rate 25 H 07/22/20 17:08 Blood Pressure 99/55 L 07/22/20 17:08 Pulse Oximetry 95 07/22/20 17:08 Temperature 100.2 F H 07/22/20 17:08 Temperature Source Temporal Artery Scan 07/22/20 17:08 Pulse 103 H 07/22/20 17:08 Respiratory Rate 25 H 07/22/20 17:08 Respiratory Effort 07/22/20 17:14 Blood Pressure 99/55 L 07/22/20 17:08 Blood Pressure Position Sitting 07/22/20 17:08 Pulse Oximetry 95 07/22/20 17:08 Oxygen Delivery Method Room Air 07/22/20 17:08 Oxygen Flow Rate 0 07/22/20 17:08 Pain Level 0 07/22/20 17:08 Lab/Test Results Lab/Test Results: 07/22/20 17:23 Blood Blood Culture - Pending 07/22/20 17:23 Blood Blood Culture - Pending Procedures Paracentesis Time Out Performed: Yes Local Anesthetic: Lidocaine 1% and with Epi Amount of anesthesia used (mL): 5 Fluid: clear (30cc clear yellow fluid) and Sent to Lab for Analysis Post Procedure Exam: awake, alert Patient Tolerated Procedure: well and other Complications: none
--- NOTE | 2020-07-22 18:00 | DI.CT_ITS ---
Exam(s) CT CHEST PE ABD PELVIS W EXAM: CT CHEST PE ABD PELVIS W TECHNIQUE: CT angiography of the chest, abdomen and pelvis was performed with bolus infusion of 75 c c of Omnipaque 350. Axial CT angiography was performed with multi-slice acquisition and multi-planar and/or 3D reconstruc tions. COMPARISON: CT CT ABDOMEN PELVIS W from 06/16/2020 FINDINGS: There is a large right pleural effusion and moderate-sized left pleural effusion which are associated with severe ascites period there are areas of presumed associated pressure atelectasis in the depend ent portions of the lungs. There are areas of increased radiodensity in the left upper pulmonary lob e lobes suspicious for areas of consolidation, please correlate clinically.. No evidence of pulmonar y embolic disease. No thoracic aortic dissection or aneurysm. Major branches of the thoracic aorta ap pear normal. No pleural effusion. No mediastinal or hilar adenopathy. Tracheobronchial tree appears intact. Severe ascites noted. The liver has a nodular contour consistent with cirrhosis. Normal opacificati on of the portal vein. Mild tortuosity of upper abdominal vessels noted. Mild splenomegaly noted. Pancreas is unremarkable. Note is made of cholelithiasis. The kidneys and adrenals are unremarkable in appearance, no evidence of urinary tract calcification or obstruction. No abdominal aortic aneurysm or dissection. Major branches of the abdominal aorta appear normal. No a bdominal or pelvic adenopathy. Appendix is not visualized with certainty but there is no evidence of appendicitis or diverticulitis. No significant abdominal wall hernia. No focal bowel pathology. IMPRESSION: No evidence of acute vascular abnormality of the chest, abdomen or pelvis. Severe ascites and bilateral pleural effusions. Findings suspicious for left upper lobe pneumonia. Appropriate follow-up studies requested. RADIATION DOSE DELIVERED: 744.88mGy.cm Total DLP 744.88mGy.cm Total DLP DATA REPOSITORY: All CT scans at this facility are submitted to the National Radiology Data Registry (NRDR) Dose Index Registry (DIR) with the [employer] [place] [employer] (A[employer]). RADIATION OPTIMIZATION: All CT scans at this facility use at least one of these dose optimization te chniques: automated exposure control; mA and/or kV adjustment per patient size (includes targeted exa ms where dose is matched to clinical indication); or iterative reconstruction.
[2020-07-22 18:13] LABS: Abs Immature Grans 0.07 10^3/uL (0.0-0.06); Absolute Basophil Count 0.04 10^3/uL (0.0-0.2); Absolute Eosinophil Count 0.22 10^3/uL (0.0-0.7); Absolute Lymphocyte Count 0.41 10^3/uL (1.2-3.4); Absolute Monocyte Count 0.84 10^3/uL (0.1-0.8); Absolute Neutrophil Count 9.16 10^3/uL (1.2-6.7); Basophils % 0.4; HCT 24.4 % (36.0-46.0); HGB 8.6 g/dL (11.2-15.7); Immature Grans % 0.7; Lymphocytes % 3.8; MCH 38.6 pg (27.0-33.0); MCHC 35.2 % (32.0-36.0); MCV 109.4 fL (80-95); MPV 8.9 fL (8.0-11.0); Monocytes % 7.8; Neutrophils % 85.3; Nucleated RBC 0 %; Platelet Count 88 10^3/uL (130-400); RBC 2.23 10^6/uL (3.93-5.22); RDW 14.6 % (11.7-14.6); RDW-SD 57.8 fL; WBC 10.74 10^3/uL (4.4-10.8)
[2020-07-22 18:21] LABS: Ammonia 35 umol/L (11-32)
[2020-07-22 18:26] LABS: ALT 25 U/L (14-59); AST 40 U/L (15-37); Albumin 2.9 g/dL (3.4-5.0); Alkaline Phosphatase 248 U/L (46-116); Anion Gap 7.6 mmol/L (3-11); BUN 14 mg/dL (7-18); Bilirubin, Total 5.1 mg/dL (0.2-1.0); CO2 26.4 mmol/L (21.0-32.0); CREATININE 0.6 mg/dL (0.55-1.02); Calcium 8.8 mg/dL (8.5-10.1); Chloride 101 mmol/L (98-107); Glucose 134 mg/dL (74-106); Magnesium 1.8 mg/dL (1.8-2.4); Potassium 4.4 mmol/L (3.5-5.1); Sodium 135 mmol/L (136-145); Total Protein 5.1 g/dL (6.4-8.2)
[2020-07-22] MEDS: Omnipaque 350 MG/ML 100 ML BTL 75 ML IV (18:27)
[2020-07-22 18:28] LABS: Troponin I < 0.05 ng/mL (<0.06)
[2020-07-22 18:34] LABS: INR 1.6 (0.9-1.1); PTT Activated 29.2 sec (21.0-27.5); Prothrombin Time 16.1 sec (9.3-11.0)
[2020-07-22] MEDS: Normal Saline 500 ML IV (18:35)
[2020-07-22 18:40] LABS: Anisocytosis 1+; Diff Comment Diff Reviewed; Macrocytosis 2+; Poikilocytes 1+
--- NOTE | 2020-07-22 19:15 | RT.EKG_ITS ---
APPROVED REPORT Exam: Resting ECG Reason for Exam: hypotension Patient Location: E HR:91 bpm ECG Measurements Heart Rate 91 AXIS MN 116 P 42 QRSd 77 QRS 3 QT 346 T 74 QTc 427 Conclusion Sinus rhythm...normal P axis, V-rate 60- 99 Low voltage, extremity leads...all extremity leads <0.5mV I have reviewed and interpreted ECG and agree with software generated interpretation.
[2020-07-22 19:32] LABS: Bilirubin Negative (Negative); Blood Negative (Negative); Clarity Clear (Clear); Glucose Negative (Negative); Ketones Negative (Negative); Leukocyte Esterase Negative (Negative); Nitrite Negative (Negative); Specific Gravity <= 1.005 (1.005-1.025)
[2020-07-22 19:34] LABS: Lactate 1.1 mmol/L (0.6-1.4)
--- NOTE | 2020-07-22 19:57 | DI.VRAD_ITS ---
PROCEDURE INFORMATION: Exam: CTA Chest With Contrast Exam date and time: 07/22/2020 6:12 PM Age: 64 years old Clinical indication: Cough and fever and shortness of breath; Difficulty breathing or dyspnea and fever TECHNIQUE: Imaging protocol: Computed tomographic angiography of the chest with contrast. 3D rendering (Not supervised by radiologist): MIP and/or 3D reconstructed images were created by the technologist. Radiation optimization: All CT scans at this facility use at least one of these dose optimization techniques: automated exposure control; mA and/or kV adjustment per patient size (includes targeted exams where dose is matched to clinical indication); or iterative reconstruction. Contrast material: OMNIPAQUE 350; Contrast volume: 75 ml; Contrast route: INTRAVENOUS (IV); COMPARISON: CR XR CHEST 2V PA LATERAL 07/15/2020 6:43 PM FINDINGS: Pulmonary arteries: Normal. No pulmonary emboli. Aorta: Unremarkable. No aortic aneurysm. No aortic dissection. Lungs: Infiltrate in the left upper lobe. Pneumonia is not excluded. Pleural spaces: Bilateral pleural effusions and adjacent atelectasis. Right greater than left. Heart: Unremarkable. No cardiomegaly. No pericardial effusion. Lymph nodes: Unremarkable. No enlarged lymph nodes. Bones/joints: Unremarkable. No acute fracture. Soft tissues: Unremarkable. IMPRESSION: 1. Bilateral pleural effusions and adjacent atelectasis. Right greater than left. 2. Infiltrate in the left upper lobe. Pneumonia is not excluded. PROCEDURE INFORMATION: Exam: CT Angiography Abdomen With Contrast Exam date and time: 07/22/2020 6:12 PM Age: 64 years old Clinical indication: Cough and fever and shortness of breath; Difficulty breathing or dyspnea and fever TECHNIQUE: Imaging protocol: Computed tomographic angiography images of the abdomen with intravenous contrast material. 3D rendering (Not supervised by radiologist): MIP and/or 3D reconstructed images were created by the technologist. Radiation optimization: All CT scans at this facility use at least one of these dose optimization techniques: automated exposure control; mA and/or kV adjustment per patient size (includes targeted exams where dose is matched to clinical indication); or iterative reconstruction. Contrast material: OMNIPAQUE 350; Contrast volume: 75 ml; Contrast route: INTRAVENOUS (IV); COMPARISON: CR XR CHEST 2V PA LATERAL 07/15/2020 6:43 PM FINDINGS: Aorta: Atherosclerosis. Celiac trunk and mesenteric arteries: No occlusion or significant stenosis. Renal arteries: No occlusion or significant stenosis. Liver: Scattered hepatic cysts. These measure up to 1 cm. Mild cirrhosis. Gallbladder and bile ducts: Gallstones. Pancreas: Normal. No ductal dilation. Spleen: Splenomegaly measuring 14 cm. Adrenals: Normal. No mass. Kidneys and ureters: Normal. No hydronephrosis. Stomach and bowel: Unremarkable. No obstruction. No mucosal thickening. Lymph nodes: Unremarkable. No enlarged lymph nodes. Intraperitoneal space: Ascites. The mesentery is edematous. Bones/joints: Scoliosis. Soft tissues: Anasarca. IMPRESSION: 1. Ascites. 2. Gallstones. 3. The mesentery is edematous. 4. Anasarca. 5. Splenomegaly measuring 14 cm. 6. Mild cirrhosis. No hepatic masses. Dictated and Authenticated by: Leslie Rosenbaum MD. Ordering:KAYLYN Bermeo MD
[2020-07-22 20:29] LABS: COVID-19 PCR Negative (Negative)
--- NOTE | 2020-07-22 21:13 | W.PM.HP.N ---
Date of service: 07/22/20 Time of Service: 21:14 Assessment and Plan Assessment and plan (1) Fever: Status: Acute Assessment and plan: The fever appears to be due to a left upper lobe pneumonia. I have checked a lactate and pro calcitonin. Blood cultures are pending. Paracentesis fluid culture is pending also. (2) Generalized weakness: Status: Acute Assessment and plan: She states that she left arm with sooner than what they wanted. I think her weakness is due to combination of all of her medical problems. She will need rehabilitation. Physical therapy and care management consultations have been requested. (3) Alcoholic cirrhosis of liver with ascites: Status: Acute Assessment and plan: This is a chronic problem. A paracentesis was done today. Her laboratory studies are improved compared to last week. (4) Pneumonia: Status: Acute Assessment and plan: This may be a hospital-acquired infection. She has been started on vancomycin and Zosyn. Cultures are pending. History of Present Illness History of Present Illness Chief Complaint: Weakness Narrative: This 64-year-old female has chronic ascites and liver failure. She was recently admitted to [facility] and she says that she left before they really thought she should go because she wanted to get her grandsons birthday republican which will be tomorrow. His birthday was today. She felt very weak and confused today. She is scheduled to be admitted to [facility] for rehab in a couple days. Her brought her in today because he cannot manage her at home. She has had some cough and urinary frequency. She has had some chills but no known fever at home. She says she has not drank alcohol for 5 to 6 years but that history may not be accurate. She denies use of tobacco. She says she thinks her abdomen is more distended and she is having some abdominal discomfort. She states she is taking her medicines as directed. She states she has advanced directives but would want to be resuscitated if she got sick or had a cardiac or pulmonary arrest. She has had both her coronavirus vaccines and has not been exposed to anyone else been ill or has had any travel. Review of Systems All systems reviewed & are unremarkable except as noted in HPI and below Constitutional Constitutional: Reports chills, Reports fatigue, Denies fever(s), Reports weakness and Reports weight loss ENT Ears, Nose, Mouth, and Throat: Denies dysphagia, Denies odynophagia, Reports disequilibrium and Denies sore throat Cardiovascular Cardiovascular: Denies chest pain, Denies leg edema and Reports dyspnea Respiratory Respiratory: Reports cough, Denies hemoptysis and Reports dyspnea Gastrointestinal Gastrointestinal: Reports abdominal pain, Denies constipation, Denies dysphagia, Denies heartburn, Denies odynophagia and Denies vomiting Genitourinary Genitourinary: Denies difficulty voiding Neurologic Neurologic: Reports disequilibrium and Reports weakness Endocrine Endocrine: Reports fatigue [facility] Medical History (Updated 07/22/20 @ 20:10 by Elvie Putnam DO) Abnormal weight loss Acute cholecystitis Acute liver failure Advanced hepatic cirrhosis Alcoholic cirrhosis of liver with ascites Ascites due to alcoholic cirrhosis Coagulopathy Gallstones Hepatic encephalopathy Hyponatremia Leukocytosis Palliative care patient Portal hypertension with esophageal varices Thrombocytopenia Social History Smoking/Tobacco Use Status: Never Smoking risk assessment performed?: Yes Alcohol Intake: former Drug use: Never Substance use type: does not use Details: no etoh since may Do you feel safe at home: Yes Do you feel safe in your relationship?: Yes Meds Allergies and Home Medications Allergies Allergy/AdvReac Type Severity Reaction Status Date / Time erythromycin base AdvReac Mild Nausea Unverified 07/15/20 16:18 Home Medications Medication Instructions Recorded Confirmed Type furosemide [Lasix] 60 mg PO DAILY #45 tab 07/07/20 07/22/20 Rx lactulose 10 g PO DAILY #237 ml 07/07/20 07/22/20 Rx spironolactone 100 mg PO BID #60 tab 07/07/20 07/22/20 Rx melatonin 3 mg PO .QHS 07/15/20 07/22/20 History multivit with min-folic acid 1 tab PO DAILY 07/15/20 07/22/20 History [Multivitamin Gummies] ciprofloxacin HCl 100 mg PO DAILY AM 07/22/20 07/22/20 History ciprofloxacin HCl 250 mg PO DAILY AM 07/22/20 07/22/20 History midodrine 10 mg PO TID 07/22/20 07/22/20 History Exam Const General: cooperative, not healthy appearing, no acute distress and frail appearing Nutritional Appearance: underweight Orientation: alert and not confused HENNJ Head: normal to inspection Eyes General: appearance normal, both eyes and all related structures EOM: EOM intact bilaterally Neck Neck: normal visual inspection, no lymphadenopathy and trachea midline Resp Effort & Inspection: normal respiratory effort and no nasal flaring Auscultation: clear to auscultation bilaterally Cardio Jugular venous pressure: no JVD Rate: regular rate Heart Sounds: S1 normal, S2 normal, no murmurs and no rubs GI Inspection: distended Palpation: soft and no hepatosplenomegaly Percussion: normal to percussion Auscultation: normal bowel sounds Skin General skin exam: jaundice Neuro Cranial Nerves: CN's II-XI intact bilaterally Results Labs Result diagrams: 07/22/20 18:00 07/22/20 18:00 Labs: Laboratory Results - last 24 hr 07/22/20 07/22/20 07/22/20 18:00 18:00 18:00 WBC RBC Hgb Hct MCV MCH MCHC RDW Plt Count MPV Immature Gran % Neutrophils % Lymphocytes % Monocytes % Eosinophils % Basophils % Nucleated RBC % Absolute Neutrophils Absolute Lymphocytes Absolute Monocytes Absolute Eosinophils Absolute Basophils RBC Morphology Poikilocytosis Anisocytosis Macrocytosis PT 16.1 H INR 1.6 H APTT 29.2 H VBG Lactate Sodium 135 L Potassium 4.4 Chloride 101 Carbon Dioxide 26.4 Anion Gap 7.6 BUN 14 Creatinine 0.6 Estimated GFR/1.73 m2 >= 60.00 Glucose 134 H Calcium 8.8 Magnesium 1.8 Total Bilirubin 5.1 H AST 40 H ALT 25 Alkaline Phosphatase 248 H Ammonia 35 H Troponin I < 0.05 Total Protein 5.1 L Albumin 2.9 L Urine Color Urine Clarity Urine pH Ur Specific [place] Urine Protein Urine Ketones Urine Blood Urine Nitrite Urine Bilirubin Urine Urobilinogen Ur Leukocyte Esterase Urine Glucose COVID-19 Source SARS-CoV-2 (PCR) 07/22/20 07/22/20 07/22/20 18:00 19:00 19:27 WBC 10.74 RBC 2.23 L Hgb 8.6 L Hct 24.4 L MCV 109.4 H MCH 38.6 H MCHC 35.2 RDW 14.6 Plt Count 88 L MPV 8.9 Immature Gran % 0.7 Neutrophils % 85.3 Lymphocytes % 3.8 Monocytes % 7.8 Eosinophils % 2.0 Basophils % 0.4 Nucleated RBC % 0 Absolute Neutrophils 9.16 H Absolute Lymphocytes 0.41 L Absolute Monocytes 0.84 H Absolute Eosinophils 0.22 Absolute Basophils 0.04 RBC Morphology See below Poikilocytosis 1+ Anisocytosis 1+ Macrocytosis 2+ PT INR APTT VBG Lactate 1.1 Sodium Potassium Chloride Carbon Dioxide Anion Gap BUN Creatinine Estimated GFR/1.73 m2 Glucose Calcium Magnesium Total Bilirubin AST ALT Alkaline Phosphatase Ammonia Troponin I Total Protein Albumin Urine Color Yellow Urine Clarity Clear Urine pH 6.0 Ur Specific [place] <= 1.005 Urine Protein Negative Urine Ketones Negative Urine Blood Negative Urine Nitrite Negative Urine Bilirubin Negative Urine Urobilinogen 4.0 H Ur Leukocyte Esterase Negative Urine Glucose Negative COVID-19 Source SARS-CoV-2 (PCR) 07/22/20 19:40 WBC RBC Hgb Hct MCV MCH MCHC RDW Plt Count MPV Immature Gran % Neutrophils % Lymphocytes % Monocytes % Eosinophils % Basophils % Nucleated RBC % Absolute Neutrophils Absolute Lymphocytes Absolute Monocytes Absolute Eosinophils Absolute Basophils RBC Morphology Poikilocytosis Anisocytosis Macrocytosis PT INR APTT VBG Lactate Sodium Potassium Chloride Carbon Dioxide Anion Gap BUN Creatinine Estimated GFR/1.73 m2 Glucose Calcium Magnesium Total Bilirubin AST ALT Alkaline Phosphatase Ammonia Troponin I Total Protein Albumin Urine Color Urine Clarity Urine pH Ur Specific [place] Urine Protein Urine Ketones Urine Blood Urine Nitrite Urine Bilirubin Urine Urobilinogen Ur Leukocyte Esterase Urine Glucose COVID-19 Source Nasopharyx SARS-CoV-2 (PCR) Negative Last Vital Signs Temp 36.6 C 07/22/20 20:01 Pulse 98 H 07/22/20 20:01 Resp 18 07/22/20 20:01 BP 100/60 07/22/20 20:01 Pulse Ox 98 07/22/20 20:01 COVID-19 Screening Have you, or household traveled for leisure in last 14 days?: No Had IN PERSON contact w/suspected or confirmed C-19 person: No
[2020-07-22 21:46] LABS: Lactate 0.9 mmol/L (0.6-1.4)
[2020-07-22] MEDS: PIPERACILLIN/TAZO 3.375 GM in Normal Saline 50 ML IVPB (22:01)
[2020-07-22 23:00] LABS: Procalcitonin 0.3 ng/mL
[2020-07-22] MEDS: Normal Saline Flush 10 ML SYR IVP (23:42)
[2020-07-22] MEDS: Melatonin 3 MG TAB PO (23:43)
[2020-07-22] MEDS: VANCOMYCIN 1,000 MG in Normal Saline 250 ML 166.6666 MG IVPB ×2 (23:43→23:58)
[2020-07-23] MEDS: PIPERACILLIN/TAZO 3.375 GM in Normal Saline 50 ML IVPB ×3 (01:42→18:30)
[2020-07-23 04:37] VITALS: BP 93/52; PULSE 88; RESP 18; TEMP 35.8; O2SAT 93
[2020-07-23 06:40] LABS: Abs Immature Grans 0.04 10^3/uL (0.0-0.06); Absolute Basophil Count 0.04 10^3/uL (0.0-0.2); Absolute Eosinophil Count 0.24 10^3/uL (0.0-0.7); Absolute Lymphocyte Count 0.38 10^3/uL (1.2-3.4); Absolute Monocyte Count 0.53 10^3/uL (0.1-0.8); Absolute Neutrophil Count 6.73 10^3/uL (1.2-6.7); Basophils % 0.5; HCT 24.7 % (36.0-46.0); HGB 8.6 g/dL (11.2-15.7); Immature Grans % 0.5; Lymphocytes % 4.8; MCH 38.4 pg (27.0-33.0); MCHC 34.8 % (32.0-36.0); MCV 110.3 fL (80-95); MPV 8.9 fL (8.0-11.0); Monocytes % 6.7; Neutrophils % 84.5; Nucleated RBC 0 %; RBC 2.24 10^6/uL (3.93-5.22); WBC 7.96 10^3/uL (4.4-10.8)
[2020-07-23 06:42] LABS: Magnesium 1.7 mg/dL (1.8-2.4)
[2020-07-23 06:44] LABS: INR 1.6 (0.9-1.1); Prothrombin Time 15.5 sec (9.3-11.0)
[2020-07-23 07:11] VITALS: BP 77/38; PULSE 88; RESP 16; TEMP 36.5; O2SAT 98
[2020-07-23 07:15] VITALS: BP 90/52
[2020-07-23 07:19] LABS: Anisocytosis 1+; Diff Comment Diff Reviewed; Macrocytosis 3+; Platelet Count 78 10^3/uL (130-400)
[2020-07-23] MEDS: Midodrine 2.5 MG TAB 10 MG PO ×3 (07:40→19:43)
[2020-07-23] MEDS: Multivitamin w/Minerals TAB 1 TAB PO (07:40)
[2020-07-23] MEDS: Spironolactone 50 MG TAB 100 MG PO ×2 (07:40→19:43)
[2020-07-23] MEDS: Lactulose 20 GM/30 ML CUP 10 GM PO (07:40)
[2020-07-23] MEDS: Normal Saline Flush 10 ML SYR IVP (07:41)
[2020-07-23] MEDS: Enoxaparin 30 MG/0.3 ML SYR SC (08:36)
--- NOTE | 2020-07-23 09:30 | INITIAL_ITS ---
- If Service Date Differs Date of service: 07/23/20 Time of Service: 09:30 Care Management Initial Assess REASON FOR HOSPITALIZATION:: Pneumonia PAST MEDICAL HISTORY/PAST SURGICAL HISTORY:: Medical History. Abnormal weight loss. Acute cholecystitis. Acute liver failure. Advanced hepatic cirrhosis. Alcoholic cirrhosis of liver with ascites. Ascites due to alcoholic cirrhosis. Coagulopathy. Gallstones. Hepatic encephalopathy. Hyponatremia. Leuko cytosis. Palliative care patient. Portal hypertension with esophageal varices. Thrombocytopenia PREVIOUS FUNCTIONAL STATUS/SOCIAL/FAMILY SUPPORTS:: Ttay lives in a single family home in [place], [place] with her Reno. They have 2 daughters who live locally and are supportive. 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 Taty needs assistance with getting out of bed and her chair but only uses a cane occasionally for ambulation. CURRENT FUNCTIONAL STATUS:: Dorothea was sitting up in bed when CM met with her. Her , Reno, was in the room visiting. She reported that she is feeling better today. Reno reported that he has arranged for Dorothea to [facility] to [facility], as he is not able to care for her at home. Dorothea is in agreement with this plan, and is looking forward to going. Per PT, she may require short term rehab prior to her going to an assisted living facility. CM will discuss these options with Dorothea and her . CM will continue to follow. ADVANCE DIRECTIVES:: On file, Reno listed as agent and DPOA. Has patient been provided with info about the portal/API?: Yes Did the patient sign up for the portal?: No INSURANCE COVERAGE / FINANCIAL ISSUES:: MCR/ AARP/ BCBS CURRENT HOME/COMMUNITY SERVICES/EQUIPMENT:: Dorothea has a cane, which she uses occasionally. PRIMARY CARE PHYSICIAN:: Sue Bhatia POTENTIAL DISCHARGE NEEDS:: Follow up with PCP and plan of care, resumption of services. PATIENT/FAMILY EDUCATION NEEDS:: Review of discharge instructions, medications, activity, follow up plan, limitations, Ask Me Three ANTICIPATED BARRIERS TO DISCHARGE:: None identified. TRANSPORTATION:: Via private vehicle by her . PLAN:: Taty will likely go to the [facility] following this admission, as her has coordinated the plan from the community. She will follow up with her community providers and plan of care and transport with family. CM will continue to support Taty and her family and assess for discharge planning concerns.
--- NOTE | 2020-07-23 09:36 | PT.INIE ---
Date of service: 07/23/20 Time of Service: 09:05 PT Notes Visit Reasons: PNEUMONIA, AMINATA Physical Therapy Inpatient Initial Evaluation Date: 07/23/20 Referring Doctor: Woo Gonzalez PT Orders: PT CONSULT: Limited Ability Precautions: Fall. Standard. Patient Profile/Admitting Diagnosis: Dorothea is a 64 yo female that presented to the ED on 07/22/20 for weakness, body aches, and hypotension. She had presented to the ER about a week ago for alcoholic cirrhosis with ascites and transferred to [facility] with discharge home two days prior to this admission. Patient reports ongoing weakness. Patient reports planning on discharging to [facility]. PMHX: Medical History?(Updated 07/22/20 @ 20:10 by Elvie Putnam DO) Abnormal weight loss Acute cholecystitis Acute liver failure Advanced hepatic cirrhosis Alcoholic cirrhosis of liver with ascites Ascites due to alcoholic cirrhosis Coagulopathy Gallstones Hepatic encephalopathy Hyponatremia Leukocytosis Palliative care patient Portal hypertension with esophageal varices Thrombocytopenia Social History/Home Situation: Lives with Rahul in single level home and has 2 MARSHA. Utilizes FWW or cane depending on level of need. Reports if not home her neighbor whom is an COMMUNITY RELATIONS REP will come over and walk with her, and they work on dishes, laundry, etc together. She is not a formal caregiver for patient. Equipment Owned/DME: FWW, cane Subjective: Cleared by nursing to see patient and patient is agreeable to PT. Patient is resting in at time of consult. Objective: General Observation: Pleasant and alert, very thin/frail patient with multiple scabs and bruising Mental Status: A&O x3 Pain: 0/10 ROM: Right Upper Extremity: Shoulder Flexion WFL. Shoulder abduction WFL. Elbow flexion WFL. Wrist flexion WFL. Opening and closing of hand WFL. Left Upper Extremity: Shoulder Flexion WFL. Shoulder abduction WFL. Elbow flexion WFL. Wrist flexion WFL. Opening and closing of hand WFL. Right Lower Extremity: Hip flexion WFL. Hip abduction WFL. Knee flexion WFL. Ankle dorsiflexion WFL. Ankle plantarflexion WFL. Left Lower Extremity: Hip flexion WFL. Hip abduction WFL. Knee flexion WFL. Ankle dorsiflexion WFL. Ankle plantarflexion WFL. Strength: Right Upper Extremity: Shoulder flexors 5/5. Shoulder abductors 5/5. Elbow flexors 4+/5. Elbow extensors 4+/5. Shoulder ER 4/5. Neonatal Doctor strong. Left Upper Extremity: Shoulder flexors 4+/5. Shoulder abductors 5/5. Elbow flexors 4+/5. Elbow extensors 4+/5. Shoulder ER 4/5. Neonatal Doctor strong. Right Lower Extremity: Hip flexors 3+/5. Knee flexors 4+/5. Knee extensors 5-/5. Ankle dorsiflexors 5/5. Ankle plantarflexors 5/5. Left Lower Extremity: Hip flexors 3+/5. Knee flexors 4+/5. Knee extensors 5-/5. Ankle dorsiflexors 5/5. Ankle plantarflexors 5/5. Sensation: Intact as to pain and pressure on bilateral lower extremities. Bed Mobility/Transfers: Rolling: Independent Supine to sit: SBA Sit to supine: SBA Sit to stand: SBA Stand to sit: SBA Gait: Ambulated 60ft with FWW and SBA, decreased maria m, slow turns Balance: Static Sitting: Normal Dynamic Sitting: Good Static Standing: Good Dynamic Standing: Fair Special Tests: Mobility Limitations Standardized Measure [facility] AM-PAC 6 clicks Basic Mobility Inpatient Short Form: Raw Score: 21 CMS Score: 28.97% Informed Consent/Education: Patient instructed in purpose of PT consult and plan of care. Assessment: Patient presents with clinical signs and symptoms consistent with current/admitting diagnoses that have resulted to mobility limitations, gait instability, generalized weakness, and impairment of motor control as demonstrated by the following impairment level findings: 1. Decreased strength to lower extremity major muscle groups 2. Impaired sitting/standing balance 3. Impaired activity tolerance Impairments are contributing to the following functional limitations: 1. Inability to safely ambulate without assistive device and supervision 2. Increased completion time for mobility ADL performance 3. Increased fall risk 4. Inability to negotiate steps alone safely Patient is assessed as a Low complexity based on the following: History: 64 year old female with impairment level findings, functional limitations, and past medical history as indicated above Examination: Demonstrable impairment in strength, balance, and mobility level with underlying impairments and functional limitations as documented above Presentation: Stable Decision Making: Low complexity Goals: Goals x1 week 1. Supine-Sit: independent 2. Sit-Supine: independent 3. Sit-Stand: independent 4. Stand-Sit: independent 5. Bed-Chair: independent 6. Chair-Bed: independent 7. Independent gait on level surface with use of least restrictive device for at least 500 feet without report of pain nor dyspnea 8. Independent stair negotiation while holding onto bilateral rails for at least 5 steps without report of pain nor dyspnea 9. Independent with home exercise program 10. Good static and dynamic standing balance/tolerance Plan of Care/Treatment Plan: 1-2x/day, 7 days/week x 1 week. Plan of care has been reviewed with the VETERANS ADVISER providing the service under Physical Therapy direction. Initiate Physical Therapy intervention for strengthening, bed mobility, transfers, gait, stairs, balance training, and use of assistive device. DISCHARGE RECOMMENDATIONS: Will closely monitor, patient reports wanting to go [facility] but will need some level of PT services to regain strength, endurance, and promote independence. TREATMENT CODE/TIME: 9:05-9:30 (25 minutes), [id number], [id number] Thank you for the opportunity to participate in the care of this patient. Evelyn Palmer, PT, DPT, OCS [facility] [place], [place]
--- NOTE | 2020-07-23 10:47 | W.PM.PROGNOT ---
Date of Service Date of service: 07/23/20 Time of Service: 10:47 Assessment and Plan Assessment and plan (1) Fever: Status: Acute Assessment and plan: The fever appears to be due to a left upper lobe pneumonia. Blood cultures are pending. Paracentesis fluid culture is pending also. continue zosyn for now (2) Generalized weakness: Status: Acute Assessment and plan: PT/OT (3) Alcoholic cirrhosis of liver with ascites: Status: Acute Assessment and plan: This is a chronic problem. paracentesis yesterday with cultures pending. Her laboratory studies are improved compared to last week. (4) Pneumonia: Status: Acute Assessment and plan: respiratory status stable, no oxygen requirement. continue Zosyn day 2. Cultures are pending. (5) DVT prophylaxis: Status: Acute Assessment and plan: enoxaparin teds scds (6) Discharge planning issues: Status: Acute Assessment and plan: case management following anticipate discharge to home +/- services. discussed with dr Villalpando Subjective Subjective Patient reports: no new complaints, feels better, tolerating liquids well, tolerating a regular diet, voiding w/o difficulty, no bowel movement and afebrile Exam Const General: cooperative, not healthy appearing, no acute distress, frail appearing and ill appearing chronically Nutritional Appearance: underweight Orientation: alert, awake, oriented x3 and not confused [facility] Head: normal to inspection Eyes General: appearance normal, both eyes and all related structures Sclera: scleral abnormality (icteric) bilaterally EOM: EOM intact bilaterally Neck Neck: normal visual inspection, no lymphadenopathy and trachea midline Resp Effort & Inspection: normal respiratory effort and no nasal flaring Auscultation: clear to auscultation bilaterally Cardio Jugular venous pressure: no JVD Rate: regular rate Heart Sounds: S1 normal, S2 normal, no murmurs and no rubs GI Inspection: distended Palpation: soft, no hepatosplenomegaly, tender in the LLQ and ascites Percussion: normal to percussion Auscultation: normal bowel sounds Skin General skin exam: jaundice Neuro General: patient alert, patient awake, patient oriented x3, no focal motor deficits and not confused Cranial Nerves: CN's II-XI intact bilaterally Objective Last Vital Signs Temp 36.5 C 07/23/20 07:11 Pulse 88 07/23/20 07:11 Resp 16 07/23/20 07:11 BP 90/52 L 07/23/20 07:15 Pulse Ox 98 07/23/20 07:11 Laboratory Results - last 24 hr 07/22/20 07/22/20 07/22/20 18:00 18:00 18:00 WBC RBC Hgb Hct MCV MCH MCHC RDW Plt Count MPV Immature Gran % Neutrophils % Lymphocytes % Monocytes % Eosinophils % Basophils % Nucleated RBC % Absolute Neutrophils Absolute Lymphocytes Absolute Monocytes Absolute Eosinophils Absolute Basophils RBC Morphology Poikilocytosis Anisocytosis Macrocytosis PT 16.1 H INR 1.6 H APTT 29.2 H VBG Lactate Sodium 135 L Potassium 4.4 Chloride 101 Carbon Dioxide 26.4 Anion Gap 7.6 BUN 14 Creatinine 0.6 Estimated GFR/1.73 m2 >= 60.00 Glucose 134 H Calcium 8.8 Magnesium 1.8 Total Bilirubin 5.1 H AST 40 H ALT 25 Alkaline Phosphatase 248 H Ammonia 35 H Troponin I < 0.05 Total Protein 5.1 L Albumin 2.9 L Procalcitonin Urine Color Urine Clarity Urine pH Ur Specific [place] Urine Protein Urine Ketones Urine Blood Urine Nitrite Urine Bilirubin Urine Urobilinogen Ur Leukocyte Esterase Urine Glucose COVID-19 Source SARS-CoV-2 (PCR) 07/22/20 07/22/20 07/22/20 18:00 19:00 19:27 WBC 10.74 RBC 2.23 L Hgb 8.6 L Hct 24.4 L MCV 109.4 H MCH 38.6 H MCHC 35.2 RDW 14.6 Plt Count 88 L MPV 8.9 Immature Gran % 0.7 Neutrophils % 85.3 Lymphocytes % 3.8 Monocytes % 7.8 Eosinophils % 2.0 Basophils % 0.4 Nucleated RBC % 0 Absolute Neutrophils 9.16 H Absolute Lymphocytes 0.41 L Absolute Monocytes 0.84 H Absolute Eosinophils 0.22 Absolute Basophils 0.04 RBC Morphology See below Poikilocytosis 1+ Anisocytosis 1+ Macrocytosis 2+ PT INR APTT VBG Lactate 1.1 Sodium Potassium Chloride Carbon Dioxide Anion Gap BUN Creatinine Estimated GFR/1.73 m2 Glucose Calcium Magnesium Total Bilirubin AST ALT Alkaline Phosphatase Ammonia Troponin I Total Protein Albumin Procalcitonin Urine Color Yellow Urine Clarity Clear Urine pH 6.0 Ur Specific [place] <= 1.005 Urine Protein Negative Urine Ketones Negative Urine Blood Negative Urine Nitrite Negative Urine Bilirubin Negative Urine Urobilinogen 4.0 H Ur Leukocyte Esterase Negative Urine Glucose Negative COVID-19 Source SARS-CoV-2 (PCR) 07/22/20 07/22/20 07/23/20 19:40 21:42 06:07 WBC RBC Hgb Hct MCV MCH MCHC RDW Plt Count MPV Immature Gran % Neutrophils % Lymphocytes % Monocytes % Eosinophils % Basophils % Nucleated RBC % Absolute Neutrophils Absolute Lymphocytes Absolute Monocytes Absolute Eosinophils Absolute Basophils RBC Morphology Poikilocytosis Anisocytosis Macrocytosis PT INR APTT VBG Lactate 0.9 Sodium Potassium Chloride Carbon Dioxide Anion Gap BUN Creatinine Estimated GFR/1.73 m2 Glucose Calcium Magnesium 1.7 L Total Bilirubin AST ALT Alkaline Phosphatase Ammonia Troponin I Total Protein Albumin Procalcitonin 0.3 Urine Color Urine Clarity Urine pH Ur Specific [place] Urine Protein Urine Ketones Urine Blood Urine Nitrite Urine Bilirubin Urine Urobilinogen Ur Leukocyte Esterase Urine Glucose COVID-19 Source Nasopharyx SARS-CoV-2 (PCR) Negative 07/23/20 07/23/20 06:07 06:07 WBC 7.96 RBC 2.24 L Hgb 8.6 L Hct 24.7 L MCV 110.3 H MCH 38.4 H MCHC 34.8 RDW 15.0 H Plt Count 78 L MPV 8.9 Immature Gran % 0.5 Neutrophils % 84.5 Lymphocytes % 4.8 Monocytes % 6.7 Eosinophils % 3.0 Basophils % 0.5 Nucleated RBC % 0 Absolute Neutrophils 6.73 H Absolute Lymphocytes 0.38 L Absolute Monocytes 0.53 Absolute Eosinophils 0.24 Absolute Basophils 0.04 RBC Morphology See below Poikilocytosis Anisocytosis 1+ Macrocytosis 3+ PT 15.5 H INR 1.6 H APTT VBG Lactate Sodium Potassium Chloride Carbon Dioxide Anion Gap BUN Creatinine Estimated GFR/1.73 m2 Glucose Calcium Magnesium Total Bilirubin AST ALT Alkaline Phosphatase Ammonia Troponin I Total Protein Albumin Procalcitonin Urine Color Urine Clarity Urine pH Ur Specific [place] Urine Protein Urine Ketones Urine Blood Urine Nitrite Urine Bilirubin Urine Urobilinogen Ur Leukocyte Esterase Urine Glucose COVID-19 Source SARS-CoV-2 (PCR)
[2020-07-23] MEDS: MAGNESIUM SULFATE 1 GM/100 ML BAG IVPB (11:26)
[2020-07-23 14:30] VITALS: BP 84/44; PULSE 91; RESP 17; TEMP 36.6; O2SAT 97
[2020-07-23 15:16] VITALS: BP 95/55; PULSE 90; RESP 16; TEMP 36.7; O2SAT 97
[2020-07-23 23:27] VITALS: BP 80/40; PULSE 80; RESP 16; TEMP 36.7; O2SAT 95
[2020-07-24] MEDS: PIPERACILLIN/TAZO 3.375 GM in Normal Saline 50 ML IVPB (03:05)
[2020-07-24] MEDS: Normal Saline Flush 10 ML SYR IVP (03:05)
[2020-07-24 06:42] LABS: Abs Immature Grans 0.05 10^3/uL (0.0-0.06); Absolute Basophil Count 0.05 10^3/uL (0.0-0.2); Absolute Eosinophil Count 0.24 10^3/uL (0.0-0.7); Absolute Lymphocyte Count 0.45 10^3/uL (1.2-3.4); Absolute Monocyte Count 0.63 10^3/uL (0.1-0.8); Absolute Neutrophil Count 7.97 10^3/uL (1.2-6.7); Basophils % 0.5; Eosinophils % 2.6; HCT 25.2 % (36.0-46.0); HGB 8.9 g/dL (11.2-15.7); Immature Grans % 0.5; Lymphocytes % 4.8; MCH 38.7 pg (27.0-33.0); MCHC 35.3 % (32.0-36.0); MCV 109.6 fL (80-95); MPV 8.6 fL (8.0-11.0); Monocytes % 6.7; Neutrophils % 84.9; Nucleated RBC 0 %; RDW 15.1 % (11.7-14.6); RDW-SD 60.5 fL; WBC 9.39 10^3/uL (4.4-10.8)
[2020-07-24 06:59] LABS: ALT 22 U/L (14-59); AST 42 U/L (15-37); Albumin 2.6 g/dL (3.4-5.0); Alkaline Phosphatase 229 U/L (46-116); Anion Gap 9.8 mmol/L (3-11); BUN 9 mg/dL (7-18); Bilirubin, Total 5.9 mg/dL (0.2-1.0); CO2 23.2 mmol/L (21.0-32.0); CREATININE 0.6 mg/dL (0.55-1.02); Calcium 8.4 mg/dL (8.5-10.1); Chloride 103 mmol/L (98-107); Glucose 106 mg/dL (74-106); Magnesium 1.9 mg/dL (1.8-2.4); Potassium 3.7 mmol/L (3.5-5.1); Sodium 136 mmol/L (136-145); Total Protein 4.9 g/dL (6.4-8.2)
[2020-07-24 07:03] LABS: Platelet Count 90 10^3/uL (130-400)
[2020-07-24 07:04] LABS: Diff Comment Diff Reviewed; Hypochromasia 2+; Macrocytosis 2+
[2020-07-24 07:26] VITALS: BP 98/56; PULSE 80; RESP 17; TEMP 36.6; O2SAT 100
[2020-07-24] MEDS: Enoxaparin 30 MG/0.3 ML SYR SC (08:14)
[2020-07-24] MEDS: Spironolactone 50 MG TAB 100 MG PO (08:14)
[2020-07-24] MEDS: Multivitamin w/Minerals TAB 1 TAB PO (08:14)
[2020-07-24] MEDS: Lactulose 20 GM/30 ML CUP 10 GM PO (08:14)
[2020-07-24] MEDS: Naproxen 250 MG TAB PO (08:15)
--- NOTE | 2020-07-24 08:31 | W.PALLCONSUL ---
Date of service: 07/24/20 Time of Service: 08:31 History of Present Illness Narrative: I was asked by the hospitalist team to see Dorothea. She is a 64-year-old woman who is a full code. She has alcoholic cirrhosis. She quit drinking about 5 weeks ago and is hoping for transplant. Today she is anticipating discharge to [facility] tomorrow. She states that [facility] will take good care of her and help her to get well. She states that she has never asked what her prognosis is nor has anyone told her. She also is not interested in learning her prognosis. She states that she feels fine and emphatically says that she is a full code she wants everything done. She is not concerned about chest compressions breaking ribs or being hooked up to a breathing machine. Consults Consult date: 07/24/20 Requesting physician: Hattie Romo Assessment and Plan Assessment and plan (1) Alcoholic cirrhosis of liver with ascites: Status: Acute (2) Pneumonia: Status: Acute (3) Abnormal weight loss: Status: Acute (4) Muscle wasting: Status: Acute (5) Palliative care patient: Status: Acute Assessment and plan: Dorothea is looking at her illness through eleuterio colored glasses. She does not want to consider that she is in fact close to dying. She does not want to know her prognosis. She is enthusiastic about the next moved to [facility]. She wants to remain a full code. I did explain to her that I am happy to meet with her at [place] in or if she subsequently is admitted again to [facility]. Thank you very much for this consult (6) Anemia: Status: Chronic Review of Systems Narrative: She states that she feels good right now bowels are moving outlook is good in general has no concerns. Constitutional Constitutional: Reports body ache(s) and Reports lethargy [facility] Medical History (Updated 07/24/20 @ 20:29 by Itzel Fajardo MD, DC) Abnormal weight loss Acute cholecystitis Acute liver failure Advanced hepatic cirrhosis Alcoholic cirrhosis of liver with ascites Ascites due to alcoholic cirrhosis Coagulopathy Gallstones Hepatic encephalopathy Hyponatremia Leukocytosis Palliative care patient Portal hypertension with esophageal varices Thrombocytopenia Social History Smoking/Tobacco Use Status: Never Smoking risk assessment performed?: Yes Alcohol Intake: former Drug use: Never Substance use type: does not use Details: no etoh since may Do you feel safe at home: Yes Do you feel safe in your relationship?: Yes Exam Const General: comfortable, frail appearing and ill appearing Orientation: oriented x3 Limitations: altered mental status Resp Effort & Inspection: able to speak in complete sentences and tachypneic Auscultation: bronchial breath sounds GI Inspection: distended Results Last Vital Signs Temp 97.9 F 07/24/20 07:26 Pulse 80 07/24/20 07:26 Resp 17 07/24/20 07:26 BP 98/56 L 07/24/20 07:26 Pulse Ox 100 07/24/20 07:26 Labs Result diagrams: 07/24/20 06:10 07/25/20 06:04 Labs: Laboratory Results - last 24 hr 07/24/20 07/24/20 06:10 06:10 WBC 9.39 RBC 2.30 L Hgb 8.9 L Hct 25.2 L MCV 109.6 H MCH 38.7 H MCHC 35.3 RDW 15.1 H Plt Count 90 L MPV 8.6 Immature Gran % 0.5 Neutrophils % 84.9 Lymphocytes % 4.8 Monocytes % 6.7 Eosinophils % 2.6 Basophils % 0.5 Nucleated RBC % 0 Absolute Neutrophils 7.97 H Absolute Lymphocytes 0.45 L Absolute Monocytes 0.63 Absolute Eosinophils 0.24 Absolute Basophils 0.05 RBC Morphology See below Hypochromasia 2+ Macrocytosis 2+ Sodium 136 Potassium 3.7 Chloride 103 Carbon Dioxide 23.2 Anion Gap 9.8 BUN 9 Creatinine 0.6 Estimated GFR/1.73 m2 >= 60.00 Glucose 106 Calcium 8.4 L Magnesium 1.9 Total Bilirubin 5.9 H AST 42 H ALT 22 Alkaline Phosphatase 229 H Total Protein 4.9 L Albumin 2.6 L
[2020-07-24] MEDS: Midodrine 2.5 MG TAB 10 MG PO ×2 (08:55→14:11)
[2020-07-24] MEDS: Amoxicillin 875/Clav. 125 TAB PO (09:41)
--- NOTE | 2020-07-24 10:19 | W.NUTRFU ---
Date of service: 07/24/20 Time of Service: 10:19 Nutritional Follow up NOTE: 64 year old female readmitted after short stay at home. PMH: liver cirrohosis with PNA and weakness. s/p paracentesis, hx of abnormal weight loss. Following regular diet with adequate intake. Recommend switch to low salt diet wtih 1200 ml fluid restriction. Time Spent in Nutritional Counseling and Treatment: 0
--- NOTE | 2020-07-24 11:16 | PHA.REVIEW ---
Pharmacy Admission Review - Admission Clinical Review (Last Updated 07/16/20 @ 00:29 by Serina Jaurez MD) Palliative care patient (Acute) Fever (Acute) Generalized weakness (Acute) Confusion (Acute) Alcoholic cirrhosis of liver with ascites (Acute) Pneumonia (Acute) Abnormal weight loss (Acute) Muscle wasting (Acute) DVT prophylaxis (Acute) Discharge planning issues (Acute) erythromycin base Adverse Reaction (Mild, Unverified 07/15/20 16:18) Nausea Height 5 ft Weight 43.3 kg - Renal Dosing Renal Dosing: BUN 9 mg/dL (7-18) 07/24/20 06:10 Creatinine 0.6 mg/dL (0.55-1.02) 07/24/20 06:10 Medications needing adjustments: Reviewed (Crcl ~47.28 mL/min current meds okay.) - Anticoagulation Anticoagulation: Hgb 8.9 g/dL (11.2-15.7) L 07/24/20 06:10 Hct 25.2 % (36.0-46.0) L 07/24/20 06:10 Plt Count 90 10^3/uL (130-400) L 07/24/20 06:10 INR 1.6 (0.9-1.1) H 07/23/20 06:07 Creatinine 0.6 mg/dL (0.55-1.02) 07/24/20 06:10 DVT Prohphylaxis: Reviewed (plt and H/H improving but still low) Medications: Enoxaparin Therapeutic Anticoagulation: N/A - Opiate Usage Evaluate Pain Scale/Pains Meds: N/A - Relevant Labs Sodium 136 mmol/L (136-145) 07/24/20 06:10 Potassium 3.7 mmol/L (3.5-5.1) 07/24/20 06:10 Chloride 103 mmol/L (98-107) 07/24/20 06:10 Magnesium 1.9 mg/dL (1.8-2.4) 07/24/20 06:10 Electrolytes, C-Reactive P, ESR: Reviewed - DM Control DM Control: Glucose 106 mg/dL (74-106) 07/24/20 06:10 Insulin Dosing: N/A - Heart Failure/MT Heart Failure/MT: Troponin I < 0.05 ng/mL (<0.06) 07/22/20 18:00 EF%, DANIKA's, B-Blockers, Diuretics: Reviewed - BP Control BP Control: Blood Pressure 98/56 Blood Pressure 80/40 If elevated: Reviewed (hypotensive most of admission so far, has spironolactone and midodrine ordered) - Qtc Review If Elevated: N/A (QTc 427 on admission) - IV to PO Switch IV Medications: Reviewed - Home Meds Home Med List reviewed: Reviewed Relevent Home Meds Not ordered & why?: ciprofloxacin (has other abx ordered), furosemide (hypotensive) - Current meds Current Medication Order Review: Intervened (Discontinued duplicate med orders.) - Comments Comments/Follow Ups: Watch BP, plts, H/H, labs, for micro results and for med changes. Antibiotic Activity - Pharmacy Antibiotic Review Pharmacy Antibiotic Activity: IV to PO (Zosyn changed to augmentin this morning (day 2 abx). BC no growth @24 hours, body fluid culture no bacteria seen.)
--- NOTE | 2020-07-24 14:19 | W.PM.PROGNOT ---
Date of Service Date of service: 07/24/20 Time of Service: 14:19 Assessment and Plan Assessment and plan (1) Alcoholic cirrhosis of liver with ascites: Status: Acute Assessment and plan: This is a chronic problem. paracentesis on 07/22 no growth. Her laboratory studies are improved compared to last week. (2) Pneumonia: Status: Acute Assessment and plan: respiratory status stable, no oxygen requirement. transition to augmentin po x 14 days no cough or sputum production (3) Abnormal weight loss: Start date: 07/24/20 Start time: 14:51 Status: Acute Assessment and plan: Due to cirrhosis and alcohol abuse no alcohol in 5 weeks. (4) Muscle wasting: Start date: 07/24/20 Start time: 14:52 Status: Acute Assessment and plan: from above (5) Palliative care patient: Start date: 07/24/20 Start time: 14:52 Status: Acute Assessment and plan: Full code at this time. Likely less than 6 months to live given her current state. Continue to have palliative follow her and help her cope with the reality of her truth. (6) Jaundice: Start date: 07/24/20 Start time: 14:55 Status: Acute Assessment and plan: due to above, both of the skin and icteric bilaterally, appears older than stated age (7) Ascites due to alcoholic cirrhosis: Start date: 07/24/20 Start time: 14:57 Status: Acute Assessment and plan: Due to above. MELD score of 19 Continue spironolactone and lasix. (8) Discharge planning issues: Start date: 07/24/20 Start time: 15:03 Status: Acute Assessment and plan: Being discharged to tomorrow. Repeat covid for am. Patient would like to leave by 10 am. CM to work on discharge, (9) DVT prophylaxis: Start date: 07/24/20 Start time: 15:04 Status: Acute Assessment and plan: Heparin Subcu every 12 hours above discussed with Dr. Villalpando Subjective Subjective Patient reports: feels better Interval history since last seen: Feels better, WBC improved. Antbx switched to oral augmentin. Repeat COVID for tomorrow. She has been accepted at [facility] and will discharged there tomorrow. She denies CP, SOB, N/V/D. Abd soft slightly distended but no c/o pain. Exam Const General: cooperative, not healthy appearing, no acute distress, frail appearing and ill appearing chronically Nutritional Appearance: underweight Orientation: alert, awake, oriented x3 and not confused [facility] Head: normal to inspection Eyes General: appearance normal, both eyes and all related structures Sclera: scleral abnormality (icteric) bilaterally EOM: EOM intact bilaterally Neck Neck: normal visual inspection, no lymphadenopathy and trachea midline Resp Effort & Inspection: normal respiratory effort and no nasal flaring Auscultation: clear to auscultation bilaterally Cardio Jugular venous pressure: no JVD Rate: regular rate Heart Sounds: S1 normal, S2 normal, no murmurs and no rubs GI Inspection: distended Palpation: soft, no hepatosplenomegaly and ascites Percussion: normal to percussion Auscultation: normal bowel sounds Skin General skin exam: jaundice Neuro General: patient alert, patient awake, patient oriented x3, no focal motor deficits and not confused Cranial Nerves: CN's II-XI intact bilaterally Objective Last Vital Signs Temp 36.6 C 07/24/20 07:26 Pulse 80 07/24/20 07:26 Resp 17 07/24/20 07:26 BP 98/56 L 07/24/20 07:26 Pulse Ox 100 07/24/20 07:26 Laboratory Results - last 24 hr 07/24/20 07/24/20 06:10 06:10 WBC 9.39 RBC 2.30 L Hgb 8.9 L Hct 25.2 L MCV 109.6 H MCH 38.7 H MCHC 35.3 RDW 15.1 H Plt Count 90 L MPV 8.6 Immature Gran % 0.5 Neutrophils % 84.9 Lymphocytes % 4.8 Monocytes % 6.7 Eosinophils % 2.6 Basophils % 0.5 Nucleated RBC % 0 Absolute Neutrophils 7.97 H Absolute Lymphocytes 0.45 L Absolute Monocytes 0.63 Absolute Eosinophils 0.24 Absolute Basophils 0.05 RBC Morphology See below Hypochromasia 2+ Macrocytosis 2+ Sodium 136 Potassium 3.7 Chloride 103 Carbon Dioxide 23.2 Anion Gap 9.8 BUN 9 Creatinine 0.6 Estimated GFR/1.73 m2 >= 60.00 Glucose 106 Calcium 8.4 L Magnesium 1.9 Total Bilirubin 5.9 H AST 42 H ALT 22 Alkaline Phosphatase 229 H Total Protein 4.9 L Albumin 2.6 L
[2020-07-24 15:09] VITALS: BP 102/58; PULSE 82; RESP 17; TEMP 36.5; O2SAT 97
--- NOTE | 2020-07-24 15:30 | PT.INNT ---
Date of service: 07/24/20 Time of Service: 15:30 PT Notes Visit Reasons: PNEUMONIA, AMINATA 07/24/2020 Patient refused PT today, stating I'm not going to do PT today, I had a very busy weekend and I am exhausted. Will attempt to resume PT services tomorrow morning.
--- NOTE | 2020-07-24 15:46 | PDOC.CMPRO ---
- If Service Date Differs Date of service: 07/24/20 Time of Service: 15:46 Care Management Progress Note S/O: Dorothea was sitting up in bed when CM met with her. She expressed frustration with nursing, as she feels that she needs more space, and does not want to be followed to the bathroom. She also would like her IV removed, as per provider, she won't require it overnight prior to her discharge. CM shared her concerns with RN Coordinator, as well as her primary RN. Dorothea is identified as a fall risk and does require a one person assist at this time while ambulating. CM asked the provider to put an order in to remove the IV, if indicated. Dorothea's , [place], was in the room, and stated that he can transport Dorothea tomorrow at 10am to [facility]. He reported that he would inform staff at [facility] of the time of transport. CM will continue to follow. A: Dorothea is a 64 year old female admitted to [facility] on 07/22/20 with pneumonia. P: Taty will go to the [facility] following this admission, as her has coordinated the plan from the community. She will follow up with her community providers and plan of care and transport with family. CM will continue to support Taty and her family and assess for discharge planning concerns.
[2020-07-24] MEDS: LORazepam 0.5 MG TAB PO (20:20)
--- NOTE | 2020-07-24 21:33 | NUR.NOTE ---
This nurse went to assess patient at approximately 1930, she was sitting in the bed watching television. I greeted patient because i had patient from the night before. She had a flat affect. I asked her if i am able to assess her and administer her medications. She did not respond for a while, then she said, i told everyone during the day that i did not want to be disturbed and i do not want any medications. I told her the purpose of the medications but she was adamant that she will not be taking any medication tonight or for the rest of the night. I told patient even though she does not want to be disturbed i need to come in periodically to just check that she is doing fine, this she agreed to.
[2020-07-24 23:23] VITALS: BP 86/60; PULSE 81; RESP 16; TEMP 36.5; O2SAT 100
[2020-07-25 06:32] LABS: Abs Immature Grans 0.04 10^3/uL (0.0-0.06); Absolute Basophil Count 0.05 10^3/uL (0.0-0.2); Absolute Eosinophil Count 0.16 10^3/uL (0.0-0.7); Absolute Lymphocyte Count 0.34 10^3/uL (1.2-3.4); Absolute Monocyte Count 0.53 10^3/uL (0.1-0.8); Absolute Neutrophil Count 7.46 10^3/uL (1.2-6.7); Basophils % 0.6; Eosinophils % 1.9; HGB 8.7 g/dL (11.2-15.7); Immature Grans % 0.5; MCH 38.3 pg (27.0-33.0); MCHC 34.8 % (32.0-36.0); MCV 110.1 fL (80-95); MPV 8.2 fL (8.0-11.0); Monocytes % 6.2; Neutrophils % 86.8; Nucleated RBC 0 %; Platelet Count 92 10^3/uL (130-400); RBC 2.27 10^6/uL (3.93-5.22); RDW 15.1 % (11.7-14.6); RDW-SD 59.7 fL; WBC 8.58 10^3/uL (4.4-10.8)
[2020-07-25 06:37] LABS: Anion Gap 12.1 mmol/L (3-11); BUN 13 mg/dL (7-18); CO2 22.9 mmol/L (21.0-32.0); CREATININE 0.7 mg/dL (0.55-1.02); Calcium 8.6 mg/dL (8.5-10.1); Chloride 102 mmol/L (98-107); Glucose 111 mg/dL (74-106); Potassium 3.9 mmol/L (3.5-5.1); Sodium 137 mmol/L (136-145)
[2020-07-25 06:58] LABS: Source Nasal/Nares
[2020-07-25 07:33] LABS: Diff Comment Diff Reviewed; Macrocytosis 1+
[2020-07-25 07:50] LABS: COVID-19 PCR Negative (Negative)
[2020-07-25] MEDS: Multivitamin w/Minerals TAB 1 TAB PO (08:13)
[2020-07-25] MEDS: Naproxen 250 MG TAB PO (08:13)
[2020-07-25] MEDS: Spironolactone 50 MG TAB 100 MG PO (08:13)
[2020-07-25] MEDS: Amoxicillin 875/Clav. 125 TAB PO (08:13)
[2020-07-25] MEDS: Midodrine 2.5 MG TAB 10 MG PO (08:14)
[2020-07-25] MEDS: Lactulose 20 GM/30 ML CUP 10 GM PO (08:14)
[2020-07-25] MEDS: Heparin 5,000 UNITS/ML VIAL 2500 UNITS SC (08:15)
[2020-07-25 09:28] VITALS: BP 88/60; PULSE 85; RESP 16; TEMP 36.2; O2SAT 100
--- NOTE | 2020-07-25 10:13 | DSE_ITS ---
Date of service: 07/25/20 Time of Service: 10:14 DS: Diagnosis Discharge Diagnosis (1) Alcoholic cirrhosis of liver with ascites: Status: Acute (2) Pneumonia: Status: Acute (3) Abnormal weight loss: Status: Acute (4) Muscle wasting: Status: Acute (5) Palliative care patient: Status: Acute (6) Anemia: Status: Chronic Discharge Plan Disposition Patient Disposition: [facility] Condition: Fair Discharge Details Reason For Visit: PNEUMONIA, AMINATA Admit Date/Time: 07/22/20 20:52 Admit Provider: Woo Gonzalez Attending Provider: Woo Gonzalez Primary Care Provider: Sue Bhatia [facility] Course Hospital Course: This is a 64-year-old female with history of chronic ascites and liver failure newly diagnosed.? She was recently admitted to [facility] and discharged 3 days prior. She states she declined at home, feeling very weak and confused?and presented to the ED for evaluation. She was scheduled to be admitted to [facility] for rehab in a couple days.? Her brought her because he cannot manage her at home.? She has had some cough and urinary frequency.? Her work up in the ED was concerning for pneumonia and she was started on zosyn for broad coverage as bacterial peritonitis was also a differential. All cultures remained negative, she was afebrile with no respiratory c/o. she was oxygenating well on room air. she was eating and drinking and bowels and bladder functioning well. She will be downstepped to augmentin to complete a 7 day course. Case management has been following and she is being discharged to [facility] as previously planned. Her blood pressures are soft a baseline, she is asymptomatic. discharge discussed with DR Villalpando. Home Meds and New Rx's Prescriptions: New amoxicillin-pot clavulanate 875-125 mg Tablet 1 tab PO BID Qty: 10 RF: 0 Continued melatonin 3 mg Tablet 3 mg PO .QHS RF: 0 Multivitamin Gummies 200 mcg Tablet,Chewable 1 tab PO DAILY RF: 0 midodrine 10 mg tablet 10 mg PO TID RF: 0 spironolactone 100 mg tablet 100 mg PO BID Qty: 60 RF: 0 furosemide [Lasix] 40 mg tablet 60 mg PO DAILY Qty: 45 RF: 0 lactulose 10 gram/15 mL solution 10 g PO DAILY Qty: 237 RF: 1 Discontinued ciprofloxacin HCl 250 mg tablet 250 mg PO DAILY AM RF: 0 ciprofloxacin HCl 100 mg tablet 100 mg PO DAILY AM RF: 0 Discharge Instructions Instructions: Ascites (DC), Pneumonia (DC) Stand Alone Forms: Nursing Discharge Form Referrals: Sue Bhatia [Primary Care Provider] - 07/28/20 7:30 am (will visit you at [facility]) Activity:: Activity as Tolerated Equipment/Supplies:: No Equipment Needed Diet:: As Tolerated Discharge Orders Discharge Orders: Discharge Order (Routine); Ordered 07/25/20 Ordered By: Mariposa Frost DS: Summary Time Spent with Patient providing and/or coordinating discharge services: Greater than 30 minutes Status at Discharge Functional status at discharge: uses cane/walker Overall status at discharge: patient is progressing back to baseline Mental Status: mental status grossly normal Speech and Movement: speech and movement normal Mood: congruent mood Affect: normal affect Exam Const General: cooperative, not healthy appearing, no acute distress, frail appearing and ill appearing chronically Nutritional Appearance: underweight Orientation: alert, awake, oriented x3 and not confused HENMT Head: normal to inspection Eyes General: appearance normal, both eyes and all related structures Sclera: scleral abnormality (icteric) bilaterally EOM: EOM intact bilaterally Neck Neck: normal visual inspection, no lymphadenopathy and trachea midline Resp Effort & Inspection: normal respiratory effort and no nasal flaring Auscultation: clear to auscultation bilaterally Cardio Jugular venous pressure: no JVD Rate: regular rate Heart Sounds: S1 normal, S2 normal, no murmurs and no rubs GI Inspection: distended Palpation: soft, no hepatosplenomegaly, tender in the LLQ and ascites Percussion: normal to percussion Auscultation: normal bowel sounds Skin General skin exam: jaundice Neuro General: patient alert, patient awake, patient oriented x3, no focal motor deficits and not confused Cranial Nerves: CN's II-XI intact bilaterally Psych Mental Status: mental status grossly normal Speech and Movement: speech and movement normal Mood: congruent mood Affect: normal affect DS: Data Vitals/I&O Vitals and I&O: Vital Signs Temperature 36.2 C L 07/25/20 09:28 Temperature Source Temporal Artery Scan 07/25/20 09:28 Pulse 85 07/25/20 09:28 Pulse Rhythm Regular 07/25/20 07:32 Pulse 101 H 07/22/20 21:50 Respiratory Rate 16 07/25/20 09:28 Respiratory Effort 07/25/20 07:32 Respiratory Depth Normal 07/25/20 07:32 Respiratory Pattern Normal 07/25/20 07:32 Blood Pressure 88/60 L 07/25/20 09:28 Blood Pressure Mean 72 07/22/20 21:46 Blood Pressure Position Sitting 07/22/20 17:08 Pulse Oximetry 100 07/25/20 09:28 Oxygen Delivery Method Room Air 07/25/20 09:28 Oxygen Flow Rate 0 07/25/20 09:28 Pain Level 0 07/25/20 09:28 Comment 07/24/20 23:23 Intake & Output 07/24/20 07/24/20 07/25/20 11:59 23:59 11:59 Intake Total 720 / 1810 1090 / 1810 480 / 480 Output Total 150 / 150 Balance 570 / 1660 1090 / 1660 480 / 480 Weight 43.3 kg 44.5 kg Intake: Oral 720 / 1810 1090 / 1810 480 / 480 Output: Urine 150 / 150 Other: Urine Color Yellow Urine Appearance Clear Clear Urine Odor Strong Comment patient urine smells like antibiotics Voiding Methods Bedside Commode Data Completed and Pending Labs on day of discharge: Labs from last 24 hours 07/25/20 07/25/20 07/25/20 06:45 06:04 06:04 WBC 8.58 RBC 2.27 L Hgb 8.7 L Hct 25.0 L MCV 110.1 H MCH 38.3 H MCHC 34.8 RDW 15.1 H Plt Count 92 L MPV 8.2 Immature Gran % 0.5 Neutrophils % 86.8 Lymphocytes % 4.0 Monocytes % 6.2 Eosinophils % 1.9 Basophils % 0.6 Nucleated RBC % 0 Absolute Neutrophils 7.46 H Absolute Lymphocytes 0.34 L Absolute Monocytes 0.53 Absolute Eosinophils 0.16 Absolute Basophils 0.05 RBC Morphology See below Macrocytosis 1+ Sodium 137 Potassium 3.9 Chloride 102 Carbon Dioxide 22.9 Anion Gap 12.1 H BUN 13 Creatinine 0.7 Estimated GFR/1.73 m2 >= 60.00 Glucose 111 H Calcium 8.6 COVID-19 Source Nasal/nares SARS-CoV-2 (PCR) Negative Preliminary micro results at discharge 07/22/20 18:45 Body Fluid Culture - Preliminary Peritoneal 05/22/21 18:13 Blood Culture - Preliminary Blood NO GROWTH 48 HOURS 07/22/20 18:00 Blood Culture - Preliminary Blood NO GROWTH 48 HOURS [facility] Medical History (Updated 07/24/20 @ 20:29 by Itzel Fajardo MD, DC) Abnormal weight loss Acute cholecystitis Acute liver failure Advanced hepatic cirrhosis Alcoholic cirrhosis of liver with ascites Ascites due to alcoholic cirrhosis Coagulopathy Gallstones Hepatic encephalopathy Hyponatremia Leukocytosis Palliative care patient Portal hypertension with esophageal varices Thrombocytopenia Social History Smoking/Tobacco Use Status: Never Smoking risk assessment performed?: Yes Alcohol Intake: former Drug use: Never Substance use type: does not use Details: no etoh since may Do you feel safe at home: Yes Do you feel safe in your relationship?: Yes
--- NOTE | 2020-07-25 10:33 | NT_ITS ---
Date of service: 07/25/20 Time of Service: 10:34 PT Notes Visit Reasons: PNEUMONIA, AMINATA 07/25/2020 Patient refused participation in PT today, stating I'm leaving today and my will be here any minute to pick me up. Patient to discharge to [facility] later today, per MD.
--- NOTE | 2020-07-25 10:59 | PDOC.CMDIS ---
LACE Index Scoring Tool - Questions: Length of Stay (in days): 3 Acuity (Admit via E.D.?): Yes Comorbidities: Liver or Renal Disease E.D. Visits: 4 - Answers: Total Score: 15 Risk of Readmission: High Risk Care Management Discharge Reason for Hospitalization: Pneumonia Discharge Plan: Dorothea will discharge to [facility], an assisted living facility upon discharge. She will follow up with her PCP and plan of care as prescribed. She will transport via private vehicle with her . CM supported RN to RN contact and reviewed discharge plan. Patient/Family Education Needs: Review discharge instructions, discuss Ask Me Three. Services Needed at Discharge: [facility] ([facility] Level 3 )
--- NOTE | 2020-07-25 11:37 | PT.INDS ---
Date of service: 07/25/20 Time of Service: 11:37 PT Notes Visit Reasons: PNEUMONIA, AMINATA Physical Therapy Inpatient Discharge Summary Date: 07/25/20 Dates of service: 07/23/2020 only This is a clinical summary of care provided on the duration of dates listed above. No charge was made in the completion of this documentation. Referring Doctor: Woo Gonzalez PT Orders: PT CONSULT: Limited Ability Precautions: Fall. Standard. Patient Profile/Admitting Diagnosis:?Dorothea is a 64 yo female that presented to the ED on 07/22/20 for weakness, body aches, and hypotension. She had presented to the ER about a week ago for alcoholic cirrhosis with ascites and transferred to [facility] with discharge home two days prior to this admission. Patient reports ongoing weakness. Patient reports planning on discharging to [facility] at [facility]. PMHX: Medical History?(Updated 07/22/20 @ 20:10 by Elvie Putnam DO) Abnormal weight loss Acute cholecystitis Acute liver failure Advanced hepatic cirrhosis Alcoholic cirrhosis of liver with ascites Ascites due to alcoholic cirrhosis Coagulopathy Gallstones Hepatic encephalopathy Hyponatremia Leukocytosis Palliative care patient Portal hypertension with esophageal varices Thrombocytopenia Social History/Home Situation: Lives with Rahul in single level home and has 2 MARSHA. Utilizes FWW or cane depending on level of need. Reports if not home her neighbor whom is an TIME CLOCK REPAIRER will come over and walk with her, and they work on dishes, laundry, etc together. She is not a formal caregiver for patient. Equipment Owned/DME: FWW, cane Subjective: NT. See most recent DEBONING TEAM LEADER notes. Objective:? General Observation: NT. See most recent DEBONING TEAM LEADER notes. Mental Status: NT. See most recent DEBONING TEAM LEADER notes. Pain: NT. See most recent DEBONING TEAM LEADER notes. ROM: Right Upper Extremity: Shoulder Flexion WFL. Shoulder abduction WFL. Elbow flexion WFL. Wrist flexion WFL. Opening and closing of hand WFL. Left Upper Extremity: Shoulder Flexion WFL. Shoulder abduction WFL. Elbow flexion WFL. Wrist flexion WFL. Opening and closing of hand WFL. Right Lower Extremity: Hip flexion WFL. Hip abduction WFL. Knee flexion WFL. Ankle dorsiflexion WFL. Ankle plantarflexion WFL. Left Lower Extremity: Hip flexion WFL. Hip abduction WFL. Knee flexion WFL. Ankle dorsiflexion WFL. Ankle plantarflexion WFL. Strength: Right Upper Extremity: Shoulder flexors 5/5. Shoulder abductors 5/5. Elbow flexors 4+/5. Elbow extensors 4+/5. Shoulder ER 4/5. Account Technician strong. Left Upper Extremity: Shoulder flexors 4+/5. Shoulder abductors 5/5. Elbow flexors 4+/5. Elbow extensors 4+/5. Shoulder ER 4/5. Account Technician strong. Right Lower Extremity: Hip flexors 3+/5. Knee flexors 4+/5. Knee extensors 5-/5. Ankle dorsiflexors 5/5. Ankle plantarflexors 5/5. Left Lower Extremity: Hip flexors 3+/5. Knee flexors 4+/5. Knee extensors 5-/5. Ankle dorsiflexors 5/5. Ankle plantarflexors 5/5. Sensation:?Intact as to pain and pressure on bilateral lower extremities. Bed Mobility/Transfers: Rolling: Independent Supine to sit: SBA Sit to supine: SBA Sit to stand: SBA Stand to sit: SBA Gait:?Ambulated 60ft with FWW and SBA, decreased maria m, slow turns Balance:? Static Sitting: Normal Dynamic Sitting: Good Static Standing: Good Dynamic Standing: Fair Assessment: Patient has refused a few attempts at conducting PT treatment sessions since 07/24/2020. Patient will benefit from home health PT services in order to progress mobility level using least restrictive assistive ambulatory device, assess home safety, identify additional equipment needs, and establish a functional maintenance program that will increase ability of patient to remain at home. Patient presents with clinical signs and symptoms consistent with current/admitting diagnoses that have resulted to mobility limitations, gait instability, generalized weakness, and impairment of motor control as demonstrated by the following impairment level findings: 1. Decreased strength to lower extremity major muscle groups 2. Impaired sitting/standing balance 3. Impaired activity tolerance Impairments are contributing to the following functional limitations: 1. Inability to safely ambulate without assistive device and supervision 2. Increased completion time for mobility ADL performance 3. Increased fall risk 4. Inability to negotiate steps alone safely Goals: Goals x1 week 1. Supine-Sit: independent NOT MET 2. Sit-Supine: independent NOT MET 3. Sit-Stand: independent NOT MET 4. Stand-Sit: independent NOT MET 5. Bed-Chair: independent NOT MET 6. Chair-Bed: independent NOT MET 7. Independent gait on level surface with use of least restrictive device for at least 500 feet without report of pain nor dyspnea NOT MET 8. Independent stair negotiation while holding onto bilateral rails for at least 5 steps without report of pain nor dyspnea NOT MET 9. Independent with home exercise program NOT MET 10. Good static and dynamic standing balance/tolerance NOT MET DISCHARGE RECOMMENDATIONS: Return to [facility] when medically cleared by hospitalist. Patient will benefit from home health PT services in order to progress mobility level using least restrictive assistive ambulatory device, assess home safety, identify additional equipment needs, and establish a functional maintenance program that will increase ability of patient to remain at home. TREATMENT CODE/TIME: MN Thank you for the opportunity to participate in the care of this patient. Cele Leiva PT, DPT, CLT [facility] [place], [place]
--- NOTE | 2020-07-25 12:09 | NUR.NOTE ---
Nursing Note: At 0920 on 07/25/20, this RN called Teddy Manuel and spoke with Steph, RN to give nurse to nurse report on the pt. prior to the pt. being discharged. RN updated Steph regarding the pt.'s mentation, VS, pain level, head to toe assessment, plan of care (including discharge plan), etc. Steph verbalized understanding and presented with a few questions that were answered. RN will reassess as necessary.
== END 2020-07-25 11:23 | disposition designated cancer center or children's hospital (05) | DRG 194 ==
LOC: ER 21:58 → MS 22:24
PROVIDERS: Nurse Practitioner Acute Care; Nurse Practitioner Family; Admitting Provider Family Medicine; Emergency Provider Physician Assistant; PCP Nurse Practitioner Family; Visit Provider Family Medicine
DX: J18.9 Pneumonia, unspecified organism (principal); J91.8 Pleural effusion in other conditions classified elsewhere; Z68.1 Body mass index [BMI] 19.9 or less, adult; D68.9 Coagulation defect, unspecified; K76.6 Portal hypertension; I85.10 Secondary esophageal varices without bleeding; K70.31 Alcoholic cirrhosis of liver with ascites; R53.1 Weakness; R63.4 Abnormal weight loss; Z20.822 Contact with and (suspected) exposure to COVID-19; D64.9 Anemia, unspecified; M62.58 Muscle wasting and atrophy, not elsewhere classified, other site
CPT/HCPCS: 36415; 49082; 71275; 74177; 80048; 80053; 84145; 87040; 87635; 93005; 96361; 96374; 97110; 97161; 97530; 99285; 81003; 82140; 83605; 83735; 84484; 85025; 85610; 85730; 87070; 87205; 93010; 99223; 99233; 99239; J1644; J1650; J2543; J3475; J3490

== ENCOUNTER 2020-07-26 14:30 | Outpatient (REF) | payer MEDICARE, SELFPAY ==
[2020-07-26 15:00] LABS: BUN 12 mg/dL (7-18); CREATININE 0.8 mg/dL (0.55-1.02); Calcium 7.9 mg/dL (8.5-10.1); Chloride 100 mmol/L (98-107); Glucose 125 mg/dL (74-106); Potassium 4.1 mmol/L (3.5-5.1); Sodium 132 mmol/L (136-145)
== END 2020-07-26 14:31 | disposition home or self-care (01) ==
LOC: NCHCN 14:30
PROVIDERS: PCP Nurse Practitioner Family; Visit Provider Nurse Practitioner Family
DX: E87.1 Hypo-osmolality and hyponatremia (principal); K76.6 Portal hypertension; K74.69 Other cirrhosis of liver; K70.31 Alcoholic cirrhosis of liver with ascites; I85.00 Esophageal varices without bleeding
CPT/HCPCS: 80048

== ENCOUNTER 2020-07-31 11:03 | Inpatient (IN) | payer MEDICARE, SELFPAY ==
[2020-07-31] VITALS (47 sets, daily range): BP systolic 79–130; BP diastolic 45–79; PULSE 79–100; RESP 15–27; TEMP 36.8–37.6; O2SAT 83–99
--- NOTE | 2020-07-31 11:04 | W.ED.GENAD ---
Discharge Plan Disposition Patient Disposition: [facility] INPATIENT Condition: Stable Discharge Details Clinical Impression: Dyspnea, Ascites, Abdominal pain, Pleural effusion, Alcoholic cirrhosis, Comfort measures only status Admit Date/Time: 07/31/20 15:51 Admit Provider: Serina Juarez Attending Provider: Serina Juarez Primary Care Provider: Sue Bhatia ED Provider: Elvie Putnam Discharge Data Discharge Date/Time-TO BE ENTERED AT DEPARTURE: 07/31/20 16:39 Medical Decision Making 64-year-old female with a history of chronic alcohol abuse resulting in alcoholic cirrhosis of the liver with ascites recently discharged from here 6 days ago for alcohol cirrhosis with ascites and treated for pneumonia presents for persistent shortness of breath and abdominal pain. Oxygen saturation 99% on room air. Temperature 99.7. Patient is speaking in full sentences and appears in no acute respiratory distress. Her lungs are clear bilaterally. Her abdomen is distended but soft with minimal diffuse tenderness. Will obtain screening labs, and CT scan of chest and abdomen to assess pleural effusion and/or ascites. Labs and imaging reviewed. White blood cell count 11. Hemoglobin improved at 9.1. INR 1.5. T bili 6.3. AST 52. Alk phos 262. Troponin negative. CT chest abdomen pelvis notes persistent large right pleural effusion as well as large amount of ascites and anasarca. CT reviewed with surgery on-call - Dr. Zamora does not routinely do paracentesis. I do not feel that patient needs emergent thoracentesis or paracentesis. She is breathing at a normal rate with normal oxygen saturation. Attempted to ambulate patient and she was unable to take any steps. states that he feels she cannot go back to [facility] and that they were planning on hospice tomorrow. Advance directives discussed with patient and at bedside. Patient would like to start hospice and does not want any life-sustaining measures and only wants to be made comfortable. Will admit patient for comfort measures only. Will likely plan for surgery to evaluate tomorrow for thoracentesis or paracentesis as needed to keep her comfortable. Medical Records Medical records reviewed: Yes I reviewed the patient's medical records. Imaging Data Radiologic Study: Radiologist's impression: CTA Chest With Contrast Exam date and time: 07/31/2020 12:02 PM Age: 64 years old Clinical indication: Other: Shortness of breath, R/O pe, pneumonia, assess pleural effusion, ascites TECHNIQUE: Imaging protocol: Computed tomographic angiography of the chest with contrast. 3D rendering (Not supervised by radiologist): MIP and/or 3D reconstructed images were created by the technologist. Radiation optimization: All CT scans at this facility use at least one of these dose optimization techniques: automated exposure control; mA and/or kV adjustment per patient size (includes targeted exams where dose is matched to clinical indication); or iterative reconstruction. Contrast material: OMNIPAQUE 350; Contrast volume: 70 ml; Contrast route: INTRAVENOUS (IV); COMPARISON: CT CHEST PE ABD PELVIS W 07/22/2020 6:21 PM FINDINGS: Pulmonary arteries: Normal. No pulmonary emboli. Aorta: Unremarkable. No aortic aneurysm. No aortic dissection. Lungs: Compressive atelectasis of the right lower lobe appears unchanged. Pleural spaces: A large right pleural effusion appears unchanged. The small left pleural effusion has decreased in size but not entirely resolved. Heart: Unremarkable. No cardiomegaly. No pericardial effusion. Lymph nodes: Unremarkable. No enlarged lymph nodes. Bones/joints: Unremarkable. No acute fracture. Soft tissues: Unremarkable. IMPRESSION: 1. No evidence of pulmonary embolism. 2. Persistent large right pleural effusion with associated compressive atelectasis of the right lower lobe. 3. Small left pleural effusion which has decreased in size since the prior study. CT Abdomen And Pelvis With Contrast Exam date and time: 07/31/2020 12:02 PM Age: 64 years old Clinical indication: Other: Shortness of breath, R/O pe, pneumonia, assess pleural effusion, ascites TECHNIQUE: Imaging protocol: Computed tomography of the abdomen and pelvis with contrast. Radiation optimization: All CT scans at this facility use at least one of these dose optimization techniques: automated exposure control; mA and/or kV adjustment per patient size (includes targeted exams where dose is matched to clinical indication); or iterative reconstruction. Contrast material: OMNIPAQUE 350; Contrast volume: 70 ml; Contrast route: INTRAVENOUS (IV); COMPARISON: CT CHEST PE ABD PELVIS W 07/22/2020 6:21 PM FINDINGS: Liver: The liver appears unchanged with cirrhotic morphology and few small scattered hepatic cysts. Gallbladder and bile ducts: There is increased distention of the gallbladder with small stones and sludge again noted. Pancreas: Normal. No ductal dilation. Spleen: Splenomegaly appears unchanged. Adrenal glands: Normal. No mass. Kidneys and ureters: Normal. No hydronephrosis. Stomach and bowel: Unremarkable. No obstruction. No mucosal thickening. Appendix: No evidence of appendicitis. Intraperitoneal space: A large amount of ascites is unchanged. There is diffuse mesenteric edema. Vasculature: Unremarkable. No abdominal aortic aneurysm. Lymph nodes: Unremarkable. No enlarged lymph nodes. Urinary bladder: Unremarkable as visualized. Reproductive: The uterus appears unremarkable. No adnexal masses are seen Bones/joints: There is an old healed fracture of the right inferior pubic ramus. Soft tissues: There is diffuse body wall edema. IMPRESSION: 1. Large amount of ascites, mesenteric edema, body wall edema, pleural effusion consistent with anasarca. 2. Splenomegaly, unchanged. 3. Cirrhotic changes of the liver with a few small hepatic cysts noted. 4. Cholelithiasis. Lab Data Lab results reviewed: Yes I reviewed the patient's lab results. Labs: Laboratory Tests Range/Units 07/31/20 07/31/20 07/31/20 11:28 11:28 11:28 WBC (4.4-10.8) 10^3/uL 11.54 H RBC (3.93-5.22) 10^6/uL 2.36 L Hgb (11.2-15.7) g/dL 9.1 L Hct (36.0-46.0) % 25.8 L MCV (80-95) fL 109.3 H MCH (27.0-33.0) pg 38.6 H MCHC (32.0-36.0) % 35.3 RDW (11.7-14.6) % 14.9 H Plt Count (130-400) 10^3/uL 116 L MPV (8.0-11.0) fL 9.0 Immature Gran % 0.8 Neutrophils % 87.2 Lymphocytes % 4.0 Monocytes % 6.1 Eosinophils % 1.6 Basophils % 0.3 Nucleated RBC % % 0 Absolute Neutrophils (1.2-6.7) 10^3/uL 10.06 H Absolute Lymphocytes (1.2-3.4) 10^3/uL 0.46 L Absolute Monocytes (0.1-0.8) 10^3/uL 0.70 Absolute Eosinophils (0.0-0.7) 10^3/uL 0.18 Absolute Basophils (0.0-0.2) 10^3/uL 0.03 Macrocytosis 2+ PT Cancelled INR Cancelled APTT Cancelled Sodium Cancelled Potassium Cancelled Chloride Cancelled Carbon Dioxide Cancelled Anion Gap Cancelled BUN Cancelled Creatinine Cancelled Estimated GFR/1.73 m2 Cancelled Glucose Cancelled Calcium Cancelled Magnesium Cancelled Total Bilirubin Cancelled AST Cancelled ALT Cancelled Alkaline Phosphatase Cancelled Troponin I Cancelled Total Protein Cancelled Albumin Cancelled Range/Units 07/31/20 07/31/20 11:53 11:53 WBC (4.4-10.8) 10^3/uL RBC (3.93-5.22) 10^6/uL Hgb (11.2-15.7) g/dL Hct (36.0-46.0) % MCV (80-95) fL MCH (27.0-33.0) pg MCHC (32.0-36.0) % RDW (11.7-14.6) % Plt Count (130-400) 10^3/uL MPV (8.0-11.0) fL Immature Gran % Neutrophils % Lymphocytes % Monocytes % Eosinophils % Basophils % Nucleated RBC % % Absolute Neutrophils (1.2-6.7) 10^3/uL Absolute Lymphocytes (1.2-3.4) 10^3/uL Absolute Monocytes (0.1-0.8) 10^3/uL Absolute Eosinophils (0.0-0.7) 10^3/uL Absolute Basophils (0.0-0.2) 10^3/uL Macrocytosis PT 14.9 H INR 1.5 H APTT 27.9 H Sodium 134 L Potassium 3.8 Chloride 100 Carbon Dioxide 24.8 Anion Gap 9.2 BUN 14 Creatinine 0.7 Estimated GFR/1.73 m2 >= 60.00 Glucose 143 H Calcium 8.8 Magnesium 1.8 Total Bilirubin 6.3 H AST 52 H ALT 24 Alkaline Phosphatase 262 H Troponin I < 0.05 Total Protein 5.4 L Albumin 2.8 L HPI General Mode of arrival: wheelchair. Date/Time Provider Initiated Documentation: 07/31/20 11:03. Limitations to Documentation: no limitations. Information obtained by: patient and family. HPI Narrative: Patient is a 64-year-old female with a history of alcoholic cirrhosis with ascites, hypertension, former alcohol abuse presents for shortness of breath and abdominal pain. Patient was admitted here last week for shortness of breath and abdominal pain with negative peritoneal cultures but noted to have pneumonia treated with antibiotics. She states since her discharge a few days ago her symptoms have returned. She denies any fever, chest pain, vomiting. is at bedside and states that they are in talks with her primary care doctor for discussion of a pleural versus peritoneal catheter and hospice. Related Data Home Medications Medication Instructions Recorded Confirmed lactulose 10 g PO DAILY #237 ml 07/07/20 07/31/20 spironolactone 100 mg PO BID #60 tab 07/07/20 07/31/20 Multivitamin Gummies 1 tab PO DAILY 07/15/20 07/31/20 melatonin 3 mg PO .QHS 07/15/20 07/31/20 midodrine 10 mg PO TID 07/22/20 07/31/20 ergocalciferol (vitamin D2) 50,000 unit PO DIRECTED 07/31/20 07/31/20 [Vitamin D2] folic acid 1 mg PO DAILY 07/31/20 07/31/20 furosemide [Lasix] 20 mg PO DAILY 07/31/20 07/31/20 lorazepam [Ativan] 0.5 mg PO TID 07/31/20 07/31/20 rifaximin 550 mg PO BID 07/31/20 07/31/20 Previous Rx's Medication Instructions Recorded lactulose 10 g PO DAILY #237 ml 07/07/20 spironolactone 100 mg PO BID #60 tab 07/07/20 Allergies Allergy/AdvReac Type Severity Reaction Status Date / Time erythromycin base AdvReac Mild Nausea Unverified 07/31/20 11:38 General ARIANE: 3 Review of Systems All systems reviewed & are unremarkable except as noted in HPI and below Constitutional Constitutional: Reports as per HPI, Denies chills and Denies fever(s) Eyes Eyes: Denies blurry vision ENT Ears, Nose, Mouth, and Throat: Denies dizziness, Denies sore throat and Denies throat swelling Cardiovascular Cardiovascular: Denies chest pain and Reports dyspnea Respiratory Respiratory: Denies cough and Reports dyspnea Gastrointestinal Gastrointestinal: Reports abdominal pain, Denies diarrhea and Denies vomiting Genitourinary Genitourinary: Denies hematuria and Denies dysuria Musculoskeletal Musculoskeletal: Denies back pain and Denies numbness Integumentary/Breasts Skin/Breast: Denies lesions and Denies rash Neurologic Neurologic: Denies dizziness, Denies localized weakness and Denies numbness Allergic/Immunologic Allergic/Immunologic: Denies throat swelling [facility] Medical History Abnormal weight loss Acute cholecystitis Acute liver failure Advanced hepatic cirrhosis Alcoholic cirrhosis of liver with ascites Ascites due to alcoholic cirrhosis Coagulopathy Gallstones Hepatic encephalopathy Hyponatremia Leukocytosis Palliative care patient Portal hypertension with esophageal varices Thrombocytopenia Social History Smoking/Tobacco Use Status: Never Smoking risk assessment performed?: Yes Alcohol Intake: former Drug use: Never Substance use type: does not use Details: no etoh since may Do you feel safe at home: Yes Do you feel safe in your relationship?: Yes Exam Const General: cooperative and no acute distress HENMT Head: normal to inspection Face and sinus: normal facial exam Eyes General: appearance normal, both eyes and all related structures Pupils: PERRL EOM: EOM intact bilaterally Neck Neck: normal visual inspection and No submandibular swelling Lymphatic: no lymphadenopathy noted Chest Chest: normal inspection of the chest and no tenderness Resp Effort & Inspection: normal respiratory effort and able to speak in complete sentences Auscultation: clear to auscultation bilaterally, no rales, no rhonchi and no wheezes Cardio Rate: regular rate Rhythm: regular rhythm GI Inspection: distended (But soft) Palpation: soft, not firm, not rigid and tender (Diffuse) Auscultation: hypoactive bowel sounds Back/Spine/Pelvis Thoracic/Lumbar Spine: thoracic and lumbar spine normal to inspection Pelvis: no pain with anterior-posterior compression Skin General skin exam: jaundice Neuro General: patient alert, patient awake and patient oriented x3 Cognition: normal cognition Speech: speech normal Motor: muscle tone normal throughout Sensory Exam: no sensory deficits noted Extrem General: normal to inspection, full ROM, capillary refill normal, no calf tenderness bilaterally and no edema Psych Appearance: grossly normal Mental Status: mental status grossly normal Speech and Movement: speech and movement normal Affect: normal affect
[2020-07-31 11:40] LABS: Abs Immature Grans 0.09 10^3/uL (0.0-0.06); Absolute Basophil Count 0.03 10^3/uL (0.0-0.2); Absolute Lymphocyte Count 0.46 10^3/uL (1.2-3.4); Basophils % 0.3; Eosinophils % 1.6; HCT 25.8 % (36.0-46.0); HGB 9.1 g/dL (11.2-15.7); Immature Grans % 0.8; MCH 38.6 pg (27.0-33.0); MCHC 35.3 % (32.0-36.0); MCV 109.3 fL (80-95); Monocytes % 6.1; Neutrophils % 87.2; Nucleated RBC 0 %; RBC 2.36 10^6/uL (3.93-5.22); RDW 14.9 % (11.7-14.6); RDW-SD 59.1 fL; WBC 11.54 10^3/uL (4.4-10.8)
[2020-07-31 11:41] LABS: Absolute Eosinophil Count 0.18 10^3/uL (0.0-0.7); Absolute Neutrophil Count 10.06 10^3/uL (1.2-6.7)
--- NOTE | 2020-07-31 12:00 | DI.CT_ITS ---
Exam(s) CT CHEST PE ABD PELVIS W EXAM: CT CHEST PE ABD PELVIS W CLINICAL HISTORY: shortness of breath, r/o pe, pneumonia. TECHNIQUE: Imaging Protocol: Axial CT angiography was performed with multi-slice acquisition and mu lti-planar and/or 3D reconstructions. CONTRAST MATERIAL: Intravenous: Omnipaque 350 Contrast volume:70 mL COMPARISON: CT CT CHEST PE ABD PELVIS W from 07/22/[address] CHEST PE ABD PELVIS W from 07/22/2020 FINDINGS: The examination is limited due to patient motion artifact. CHEST: Pulmonary Arteries: No evidence of filling defect to suggest pulmonary emboli. Tracheobronchial tree: Patent where visualized. Mediastinum and Samantha: No dominant adenopathy or fluid collection. Pulmonary parenchyma: There is a large right pleural effusion with subjacent infiltrate. There is a small left pleural effusion. There is an dependent infiltrate in the left lower lobe. Pleura: Please see the above discussion in the pulmonary parenchyma. Heart: The heart is not dilated. No coronary artery calcifications are seen. Aorta: Thoracic aorta non-dilated. No evidence of dissection. Bones: Normal. ABDOMEN: Liver: Normal density. There is a cirrhotic appearing liver. There are stable tiny hypodensities wit hin the liver. Portal, Superior Mesenteric, and Splenic Veins: Unremarkable. Gallbladder and Biliary Tract: Gallstones and sludge are seen within the gallbladder. There is no bi liary ductal dilatation. Pancreas: Normal density, no abnormal calcifications or inflammatory process. Spleen: The spleen measures 13 cm in length. Adrenals: No masses seen. Kidneys: Normal size, contour and axis. No radiodense stones or obstructive uropathy. No masses seen. Abdominal Aorta: Abdominal portion non-dilated. Atherosclerosis. Bowel: No obstruction or bowel wall thickening. No evidence of appendicitis. Peritoneal Cavity: There is a large amount of abdominal ascites. Lymph Nodes: Within normal limits. Bones: Old healed right pubic bone fractures. No acute osseous abnormality. Soft Tissues: Diffuse subcutaneous edema. PELVIS: Bladder: Symmetric distention, no gross wall thickening. Reproductive Organs: Unremarkable as visualized. Lymph Nodes: Within normal limits. Bones: Within normal limits. IMPRESSION: 1. No evidence of pulmonary embolism, thoracic aortic dissection or aneurysm. 2. Bilateral pleural effusions. There is a persistent large right pleural effusion. There has been interval decrease in size of the left pleural effusion. 3. Findings consistent with anasarca. 4. Findings of hepatic cirrhosis and splenomegaly. 5. Cholelithiasis no biliary ductal dilatation. RADIATION DOSE DELIVERED: 723.36mGy.cm Total DLP 723.36mGy.cm Total DLP DATA REPOSITORY: All CT scans at this facility are submitted to the National Radiology Data Registry (NRDR) Dose Index Registry (DIR) with the [employer] (A[employer]). RADIATION OPTIMIZATION: All CT scans at this facility use at least one of these dose optimization te chniques: automated exposure control; mA and/or kV adjustment per patient size (includes targeted exa ms where dose is matched to clinical indication); or iterative reconstruction.
[2020-07-31 12:05] LABS: Diff Comment Diff Reviewed; Macrocytosis 2+
[2020-07-31 12:06] LABS: Platelet Count 116 10^3/uL (130-400)
[2020-07-31] MEDS: Furosemide 20 MG/2 ML VIAL IVP (12:09)
[2020-07-31] MEDS: LORazepam 2 MG/ML VIAL 1 MG IVP (12:10)
[2020-07-31 12:20] LABS: ALT 24 U/L (14-59); AST 52 U/L (15-37); Albumin 2.8 g/dL (3.4-5.0); Alkaline Phosphatase 262 U/L (46-116); Anion Gap 9.2 mmol/L (3-11); BUN 14 mg/dL (7-18); CO2 24.8 mmol/L (21.0-32.0); CREATININE 0.7 mg/dL (0.55-1.02); Calcium 8.8 mg/dL (8.5-10.1); Chloride 100 mmol/L (98-107); Glucose 143 mg/dL (74-106); Magnesium 1.8 mg/dL (1.8-2.4); Potassium 3.8 mmol/L (3.5-5.1); Sodium 134 mmol/L (136-145); Total Protein 5.4 g/dL (6.4-8.2)
[2020-07-31 12:21] LABS: Troponin I < 0.05 ng/mL (<0.06)
[2020-07-31 12:22] LABS: Bilirubin, Total 6.3 mg/dL (0.2-1.0); INR 1.5 (0.9-1.1); PTT Activated 27.9 sec (21.0-27.5)
[2020-07-31 12:23] LABS: Prothrombin Time 14.9 sec (9.3-11.0)
[2020-07-31] MEDS: Omnipaque 350 MG/ML 100 ML BTL IV (13:01)
[2020-07-31] MEDS: Normal Saline - Diluent 50 ML VIAL IV (13:02)
[2020-07-31] MEDS: Normal Saline Flush 10 ML SYR IVP (13:03)
--- NOTE | 2020-07-31 14:29 | DI.VRAD_ITS ---
PROCEDURE INFORMATION: Exam: CTA Chest With Contrast Exam date and time: 07/31/2020 12:02 PM Age: 64 years old Clinical indication: Other: Shortness of breath, R/O pe, pneumonia, assess pleural effusion, ascites TECHNIQUE: Imaging protocol: Computed tomographic angiography of the chest with contrast. 3D rendering (Not supervised by radiologist): MIP and/or 3D reconstructed images were created by the technologist. Radiation optimization: All CT scans at this facility use at least one of these dose optimization techniques: automated exposure control; mA and/or kV adjustment per patient size (includes targeted exams where dose is matched to clinical indication); or iterative reconstruction. Contrast material: OMNIPAQUE 350; Contrast volume: 70 ml; Contrast route: INTRAVENOUS (IV); COMPARISON: CT CHEST PE ABD PELVIS W 07/22/2020 6:21 PM FINDINGS: Pulmonary arteries: Normal. No pulmonary emboli. Aorta: Unremarkable. No aortic aneurysm. No aortic dissection. Lungs: Compressive atelectasis of the right lower lobe appears unchanged. Pleural spaces: A large right pleural effusion appears unchanged. The small left pleural effusion has decreased in size but not entirely resolved. Heart: Unremarkable. No cardiomegaly. No pericardial effusion. Lymph nodes: Unremarkable. No enlarged lymph nodes. Bones/joints: Unremarkable. No acute fracture. Soft tissues: Unremarkable. IMPRESSION: 1. No evidence of pulmonary embolism. 2. Persistent large right pleural effusion with associated compressive atelectasis of the right lower lobe. 3. Small left pleural effusion which has decreased in size since the prior study. PROCEDURE INFORMATION: Exam: CT Abdomen And Pelvis With Contrast Exam date and time: 07/31/2020 12:02 PM Age: 64 years old Clinical indication: Other: Shortness of breath, R/O pe, pneumonia, assess pleural effusion, ascites TECHNIQUE: Imaging protocol: Computed tomography of the abdomen and pelvis with contrast. Radiation optimization: All CT scans at this facility use at least one of these dose optimization techniques: automated exposure control; mA and/or kV adjustment per patient size (includes targeted exams where dose is matched to clinical indication); or iterative reconstruction. Contrast material: OMNIPAQUE 350; Contrast volume: 70 ml; Contrast route: INTRAVENOUS (IV); COMPARISON: CT CHEST PE ABD PELVIS W 07/22/2020 6:21 PM FINDINGS: Liver: The liver appears unchanged with cirrhotic morphology and few small scattered hepatic cysts. Gallbladder and bile ducts: There is increased distention of the gallbladder with small stones and sludge again noted. Pancreas: Normal. No ductal dilation. Spleen: Splenomegaly appears unchanged. Adrenal glands: Normal. No mass. Kidneys and ureters: Normal. No hydronephrosis. Stomach and bowel: Unremarkable. No obstruction. No mucosal thickening. Appendix: No evidence of appendicitis. Intraperitoneal space: A large amount of ascites is unchanged. There is diffuse mesenteric edema. Vasculature: Unremarkable. No abdominal aortic aneurysm. Lymph nodes: Unremarkable. No enlarged lymph nodes. Urinary bladder: Unremarkable as visualized. Reproductive: The uterus appears unremarkable. No adnexal masses are seen Bones/joints: There is an old healed fracture of the right inferior pubic ramus. Soft tissues: There is diffuse body wall edema. IMPRESSION: 1. Large amount of ascites, mesenteric edema, body wall edema, pleural effusion consistent with anasarca. 2. Splenomegaly, unchanged. 3. Cirrhotic changes of the liver with a few small hepatic cysts noted. 4. Cholelithiasis. Dictated and Authenticated by: Thomas Park MD. Ordering:KAYLYN Bermeo MD
[2020-07-31 16:34] LABS: Source Nasal/Nares
--- NOTE | 2020-07-31 17:01 | W.PM.HP.N ---
Date of service: 07/31/20 Time of Service: 17:02 Assessment and Plan Assessment and plan (1) Comfort measures only status: Start date: 07/31/20 Start time: 17:32 Status: Acute Assessment and plan: She was going to go on hospice tomorrow. However she does not appear well and not ambulatory. Her abd is full of large amount of ascities. She will have paracentisis tomorrow for comfort. Morphine prn ordered for comfort. At this time she is sleeping Likely she will pass in the next 24-48 hours she is actively dying. (2) Ascites: Start date: 07/31/20 Start time: 17:34 Status: Acute Assessment and plan: as above discussed with Dr. Juarez History of Present Illness History of Present Illness Chief Complaint: Cirrhosis, end stage liver diseae, FACTORY MAINTENANCE TECHNICIAN Narrative: Well known 64 y.o female recently diagnosed with end stage liver disease until recently was in denial about her diagnosis. She was brought in by her from for large abd. She was going to be sent home however she was unable to ambulate, her last meld score was 19 now 20, however she appears to be imminent. She was going to start hopice tomorrow but due to her condition it was decided in the ED to make her comfort measures now. She was asked to be accepted by hospitalist group on the floor for further management. Comfort measures placed. Review of Systems All systems reviewed & are unremarkable except as noted in HPI and below PFSH Medical History Abnormal weight loss Acute cholecystitis Acute liver failure Advanced hepatic cirrhosis Alcoholic cirrhosis of liver with ascites Ascites due to alcoholic cirrhosis Coagulopathy Gallstones Hepatic encephalopathy Hyponatremia Leukocytosis Palliative care patient Portal hypertension with esophageal varices Thrombocytopenia Social History Smoking/Tobacco Use Status: Never Smoking risk assessment performed?: Yes Alcohol Intake: former Drug use: Never Substance use type: does not use Details: no etoh since may Do you feel safe at home: Yes Do you feel safe in your relationship?: Yes Meds Allergies and Home Medications Allergies Allergy/AdvReac Type Severity Reaction Status Date / Time erythromycin base AdvReac Mild Nausea Unverified 07/31/20 11:38 Home Medications Medication Instructions Recorded Confirmed Type lactulose 10 g PO DAILY #237 ml 07/07/20 07/31/20 Rx spironolactone 100 mg PO BID #60 tab 07/07/20 07/31/20 Rx Multivitamin Gummies 1 tab PO DAILY 07/15/20 07/31/20 History melatonin 3 mg PO .QHS 07/15/20 07/31/20 History midodrine 10 mg PO TID 07/22/20 07/31/20 History ergocalciferol (vitamin D2) 50,000 unit PO DIRECTED 07/31/20 07/31/20 History [Vitamin D2] folic acid 1 mg PO DAILY 07/31/20 07/31/20 History furosemide [Lasix] 20 mg PO DAILY 07/31/20 07/31/20 History lorazepam [Ativan] 0.5 mg PO TID 07/31/20 07/31/20 History rifaximin 550 mg PO BID 07/31/20 07/31/20 History Exam Narrative Exam Narrative: Luis Alfredo is resting in bed appears comfortable. She will open her eyes for brief seconds then closes them drifting them right back asleep. She barely was able to answer questions. Her abdomen is large and distended she will have a paracentsis tomorrow for comfort. She is jaundice, unable to assess mentation. At this time pushes are working will continue IVP for pain. She appears chronically ill. Likely she will pass in the next 24-48 hours. Her breathing is normal at this time, but she does appear to be actively dying. Results Labs Result diagrams: 07/31/20 11:28 07/31/20 11:53 Labs: Laboratory Results - last 24 hr 07/31/20 07/31/20 07/31/20 11:28 11:28 11:28 WBC 11.54 H RBC 2.36 L Hgb 9.1 L Hct 25.8 L MCV 109.3 H MCH 38.6 H MCHC 35.3 RDW 14.9 H Plt Count 116 L MPV 9.0 Immature Gran % 0.8 Neutrophils % 87.2 Lymphocytes % 4.0 Monocytes % 6.1 Eosinophils % 1.6 Basophils % 0.3 Nucleated RBC % 0 Absolute Neutrophils 10.06 H Absolute Lymphocytes 0.46 L Absolute Monocytes 0.70 Absolute Eosinophils 0.18 Absolute Basophils 0.03 Macrocytosis 2+ PT Cancelled INR Cancelled APTT Cancelled Sodium Cancelled Potassium Cancelled Chloride Cancelled Carbon Dioxide Cancelled Anion Gap Cancelled BUN Cancelled Creatinine Cancelled Estimated GFR/1.73 m2 Cancelled Glucose Cancelled Calcium Cancelled Magnesium Cancelled Total Bilirubin Cancelled AST Cancelled ALT Cancelled Alkaline Phosphatase Cancelled Troponin I Cancelled Total Protein Cancelled Albumin Cancelled COVID-19 Source 07/31/20 07/31/20 07/31/20 11:53 11:53 16:12 WBC RBC Hgb Hct MCV MCH MCHC RDW Plt Count MPV Immature Gran % Neutrophils % Lymphocytes % Monocytes % Eosinophils % Basophils % Nucleated RBC % Absolute Neutrophils Absolute Lymphocytes Absolute Monocytes Absolute Eosinophils Absolute Basophils Macrocytosis PT 14.9 H INR 1.5 H APTT 27.9 H Sodium 134 L Potassium 3.8 Chloride 100 Carbon Dioxide 24.8 Anion Gap 9.2 BUN 14 Creatinine 0.7 Estimated GFR/1.73 m2 >= 60.00 Glucose 143 H Calcium 8.8 Magnesium 1.8 Total Bilirubin 6.3 H AST 52 H ALT 24 Alkaline Phosphatase 262 H Troponin I < 0.05 Total Protein 5.4 L Albumin 2.8 L COVID-19 Source Nasal/nares Last Vital Signs Temp 37.6 C H 07/31/20 11:16 Pulse 96 H 07/31/20 16:15 Resp 19 07/31/20 16:20 BP 113/68 07/31/20 16:15 Pulse Ox 95 07/31/20 16:20 COVID-19 Screening Have you, or household traveled for leisure in last 14 days?: No Had IN PERSON contact w/suspected or confirmed C-19 person: No
[2020-07-31] MEDS: Scopolamine 1 MG/3 DAYS PATCH TD (18:08)
[2020-07-31] MEDS: MORPHine 4 MG/ML SYR 2 MG IV/SC ×2 (18:30→21:24)
[2020-07-31] MEDS: Acetaminophen 325 MG TAB 650 MG PO (18:30)
[2020-07-31] MEDS: LORazepam 2 MG/ML VIAL 0.5 MG IVP (18:31)
[2020-07-31 22:41] LABS: COVID-19 PCR Negative (Negative)
[2020-08-01 07:43] VITALS: BP 102/65; PULSE 93; RESP 17; TEMP 36.6; O2SAT 95
--- NOTE | 2020-08-01 08:34 | W.SURGCON ---
Date of service: 08/01/20 Time of Service: 08:35 Assessment and Plan Assessment and plan (1) Ascites: Status: Acute Assessment and plan: A// Large amount of ascites noted secondary to alcoholic cirrhosis. Patient would like to proceed with paracentesis for comfort. Hgb 9.1 Hct 9.1 PLT 116 continue plan per hospitalist. P// Paracentesis later today. (2) Abdominal pain: Status: Acute History of Present Illness History of Present Illness Chief Complaint: Cirrhosis/Ascites Narrative: 65 y/o female with a history of gallbladder mass and cirrhosis of the liver with ascites presented to the ER last night 07/31 with complaints of SOB and abdominal pain. She is currently on comfort measures only and she wishes to have a paracentesis to remove the fluid for comfort. She has had previous paracentesis at [facility] and [facility]. Most recent was on 07/[address] Alfred. She denies any chest pain or SOB at this time. She is not on any blood thinners. [facility] Medical History Abnormal weight loss Acute cholecystitis Acute liver failure Advanced hepatic cirrhosis Alcoholic cirrhosis of liver with ascites Ascites due to alcoholic cirrhosis Coagulopathy Gallstones Hepatic encephalopathy Hyponatremia Leukocytosis Palliative care patient Portal hypertension with esophageal varices Thrombocytopenia Social History Smoking/Tobacco Use Status: Never Smoking risk assessment performed?: Yes Alcohol Intake: former Drug use: Never Substance use type: does not use Details: no etoh since may Do you feel safe at home: Yes Do you feel safe in your relationship?: Yes Exam Const General: cooperative and comfortable Orientation: alert and oriented x3 Resp Effort & Inspection: normal respiratory effort, no audible wheezes and no cough GI Inspection: distended Palpation: soft, no guarding, tender and ascites Percussion: fluid wave Results Last Vital Signs Temp 36.6 C 08/01/20 07:43 Pulse 93 H 08/01/20 07:43 Resp 17 08/01/20 07:43 BP 102/65 08/01/20 07:43 Pulse Ox 95 08/01/20 07:43 Labs Result diagrams: 07/31/20 11:28 07/31/20 11:53 Labs: Laboratory Results - last 24 hr 07/31/20 07/31/20 07/31/20 11:28 11:28 11:28 WBC 11.54 H RBC 2.36 L Hgb 9.1 L Hct 25.8 L MCV 109.3 H MCH 38.6 H MCHC 35.3 RDW 14.9 H Plt Count 116 L MPV 9.0 Immature Gran % 0.8 Neutrophils % 87.2 Lymphocytes % 4.0 Monocytes % 6.1 Eosinophils % 1.6 Basophils % 0.3 Nucleated RBC % 0 Absolute Neutrophils 10.06 H Absolute Lymphocytes 0.46 L Absolute Monocytes 0.70 Absolute Eosinophils 0.18 Absolute Basophils 0.03 Macrocytosis 2+ PT Cancelled INR Cancelled APTT Cancelled Sodium Cancelled Potassium Cancelled Chloride Cancelled Carbon Dioxide Cancelled Anion Gap Cancelled BUN Cancelled Creatinine Cancelled Estimated GFR/1.73 m2 Cancelled Glucose Cancelled Calcium Cancelled Magnesium Cancelled Total Bilirubin Cancelled AST Cancelled ALT Cancelled Alkaline Phosphatase Cancelled Troponin I Cancelled Total Protein Cancelled Albumin Cancelled COVID-19 Source SARS-CoV-2 (PCR) 07/31/20 07/31/20 07/31/20 11:53 11:53 16:12 WBC RBC Hgb Hct MCV MCH MCHC RDW Plt Count MPV Immature Gran % Neutrophils % Lymphocytes % Monocytes % Eosinophils % Basophils % Nucleated RBC % Absolute Neutrophils Absolute Lymphocytes Absolute Monocytes Absolute Eosinophils Absolute Basophils Macrocytosis PT 14.9 H INR 1.5 H APTT 27.9 H Sodium 134 L Potassium 3.8 Chloride 100 Carbon Dioxide 24.8 Anion Gap 9.2 BUN 14 Creatinine 0.7 Estimated GFR/1.73 m2 >= 60.00 Glucose 143 H Calcium 8.8 Magnesium 1.8 Total Bilirubin 6.3 H AST 52 H ALT 24 Alkaline Phosphatase 262 H Troponin I < 0.05 Total Protein 5.4 L Albumin 2.8 L COVID-19 Source Nasal/nares SARS-CoV-2 (PCR) Negative
--- NOTE | 2020-08-01 15:36 | W.PM.DS.N ---
Date of service: 08/01/20 Time of Service: 15:36 DS: Diagnosis Discharge Diagnosis (1) Ascites: Status: Acute (2) Abdominal pain: Status: Acute Discharge Plan Disposition Patient Disposition: [facility] Condition: Stable Discharge Details Reason For Visit: End Stage liver Diseases, Ascites Admit Date/Time: 07/31/20 15:52 Admit Provider: Serina Juarez Attending Provider: Serina Juarez Primary Care Provider: Sue Bhatia [facility] Course Hospital Course: This is a 64 y.o female recently diagnosed with end stage liver disease from alcohol use disorder. She was brought in by her from [facility] for increasing abdominal distension. She was referred to observation as she was unable to ambulate, her last meld score was 19 now 20. she underwent a paracentesis on 08/01/2020, drained 2 liters and symptoms markedly improved. will return to [facility] with hospice consult. discharge discussed with Dr Juarez Home Meds and New Rx's Prescriptions: Continued lorazepam [Ativan] 1 mg tablet 1 mg PO Q4H PRN MDD hospice PRN (Reason: anxiety) Qty: 6 RF: 0 morphine concentrate 100 mg/5 mL (20 mg/mL) solution 5 - 20 mg PO Q1H PRN MDD hospice PRN (Reason: pain) Qty: 30 RF: 0 melatonin 3 mg Tablet 3 mg PO .QHS RF: 0 Multivitamin Gummies 200 mcg Tablet,Chewable 1 tab PO DAILY RF: 0 midodrine 10 mg tablet 10 mg PO TID RF: 0 spironolactone 100 mg tablet 100 mg PO BID Qty: 60 RF: 0 lactulose 10 gram/15 mL solution 10 g PO DAILY Qty: 237 RF: 1 folic acid 1 mg Tablet 1 mg PO DAILY RF: 0 ergocalciferol (vitamin D2) 25,000 unit Capsule 50,000 unit PO DIRECTED RF: 0 rifaximin 550 mg Tablet 550 mg PO BID RF: 0 furosemide [Lasix] 40 mg tablet 20 mg PO DAILY RF: 0 lorazepam [Ativan] 0.5 mg tablet 0.5 mg PO TID RF: 0 Discharge Instructions Instructions: Ascites (DC) Additional Instructions: hospice consult pending. further medication instruction per hospice team Dr Carr to be notified when abdominal distention worsening for possible palliative paracentesis. Stand Alone Forms: Nursing Discharge Form Referrals: Leslie Hale MD [ [facility] - (call when abdominal pain and swelling worsening and pain not controlled. ) Activity:: Activity as Tolerated Equipment/Supplies:: No Equipment Needed Diet:: Low Sodium Discharge Orders Discharge Orders: Discharge Order (Routine); Ordered 08/01/20 Ordered By: Mariposa Frost Discharge Data Discharge Date/Time-TO BE ENTERED AT DEPARTURE: 08/01/20 17:30 DS: Summary Time Spent with Patient providing and/or coordinating discharge services: Less than 30 minutes Status at Discharge Functional status at discharge: uses cane/walker Overall status at discharge: patient is progressing back to baseline Mental Status: mental status grossly normal Speech and Movement: speech and movement normal Mood: congruent mood Affect: normal affect Exam Const General: cooperative and no acute distress HENMT Head: normal to inspection Face and sinus: normal facial exam Eyes General: appearance normal, both eyes and all related structures Pupils: PERRL EOM: EOM intact bilaterally Neck Neck: normal visual inspection and No submandibular swelling Lymphatic: no lymphadenopathy noted Chest Chest: normal inspection of the chest and no tenderness Resp Effort & Inspection: normal respiratory effort and able to speak in complete sentences Auscultation: clear to auscultation bilaterally, no rales, no rhonchi and no wheezes Cardio Rate: regular rate Rhythm: regular rhythm GI Inspection: distended (But soft) Palpation: soft, not firm, not rigid and tender (Diffuse) Auscultation: hypoactive bowel sounds Back/Spine/Pelvis Thoracic/Lumbar Spine: thoracic and lumbar spine normal to inspection Pelvis: no pain with anterior-posterior compression Skin General skin exam: jaundice Neuro General: patient alert, patient awake and patient oriented x3 Cognition: normal cognition Speech: speech normal Motor: muscle tone normal throughout Sensory Exam: no sensory deficits noted Extrem General: normal to inspection, full ROM, capillary refill normal, no calf tenderness bilaterally and no edema Psych Appearance: grossly normal Mental Status: mental status grossly normal Speech and Movement: speech and movement normal Mood: congruent mood Affect: normal affect DS: Data Vitals/I&O Vitals and I&O: Vital Signs Temperature 36.6 C 08/01/20 07:43 Temperature Source Tympanic 08/01/20 07:43 Pulse 93 H 08/01/20 07:43 Pulse Rhythm Regular 07/31/20 17:35 Pulse 95 H 07/31/20 16:20 Respiratory Rate 17 08/01/20 07:43 Respiratory Effort Non-Labored 07/31/20 17:35 Respiratory Depth Normal 07/31/20 17:35 Respiratory Pattern Normal 07/31/20 17:35 Blood Pressure 102/65 08/01/20 07:43 Blood Pressure Mean 77 07/31/20 16:15 Blood Pressure Position Sitting 07/31/20 11:16 Pulse Oximetry 95 08/01/20 07:43 Oxygen Delivery Method Room Air 08/01/20 07:43 Oxygen Flow Rate 0 08/01/20 07:43 Pain Level 0 08/01/20 07:43 Comment 07/31/20 17:35 Intake & Output 07/31/20 08/01/20 08/01/20 23:59 11:59 23:59 Intake Total 15 / 35 180 / 300 120 / 300 Output Total 665 / 665 400 / 600 200 / 600 Balance -650 / -630 -220 / -300 -80 / -300 Intake: IV 15 35 Oral 180 / 300 120 / 300 Output: Urine 665 / 665 400 / 600 200 / 600 Other: Urine Color Dark Tiffany Light Tiffany Light Tiffany Urine Appearance Clear Clear Clear Comment pt went to the bathroom on commode, she had a small soft/loose bm and then 400 ml output, cath still in, didnt fall out. nurse notifed Stool Size Large Stool Characteristics Soft Brown Data Completed and Pending Labs on day of discharge: Labs from last 24 hours 07/31/20 16:12 COVID-19 Source Nasal/nares SARS-CoV-2 (PCR) Negative [facility] Medical History Abnormal weight loss Acute cholecystitis Acute liver failure Advanced hepatic cirrhosis Alcoholic cirrhosis of liver with ascites Ascites due to alcoholic cirrhosis Coagulopathy Gallstones Hepatic encephalopathy Hyponatremia Leukocytosis Palliative care patient Portal hypertension with esophageal varices Thrombocytopenia Social History Smoking/Tobacco Use Status: Never Smoking risk assessment performed?: Yes Alcohol Intake: former Drug use: Never Substance use type: does not use Details: no etoh since may Do you feel safe at home: Yes Do you feel safe in your relationship?: Yes
--- NOTE | 2020-08-01 16:18 | CHAPLAIN ---
Dorothea is here on comfort measures waiting for a hospice consult and will be returning to the [facility]. I had a brief visit with Dorothea and her daughter today and gave Dorothea a comfort shawl.
--- NOTE | 2020-08-01 16:22 | W.PM.OP ---
Date of service: 08/01/20 Time of Service: 14:45 Operative Note Operative Note DATE OF PROCEDURE: 08/01/20 PRE-OP DIAGNOSIS: End stage Cirrhosis/ Hospice patient POST-OP DIAGNOSIS: same PROCEDURE: Paracenthesis SURGEON: Leslie Hale ANESTHESIA TYPE: Local By Surgeon (1% Lidociane with epi) Refer to Anesthesia Record ESTIMATED BLOOD LOSS: 15 Patient was transported to: no change Patient's condition: stable Indications: Mrs Jade is a pleasant pleasant 65-year-old female with end-stage cirrhosis on hospice who was admitted to the hospital yesterday. I have been asked to see the patient for a paracentesis for comfort. Her last paracentesis was 2 weeks ago at [facility] where they removed 3-1/2 L. Discussed with the patient doing another paracentesis versus placement of a indwelling catheter. There is an increased risk of infection with the indwelling catheter. At this time the patient and her family do not wish to proceed with indwelling catheter. We also discussed that because she is on hospice I can do her paracentesis at the [facility] which is where she resides. Risks, benefits and complications were reviewed with her and she wished to proceed. No guarantees were given or implied. Procedure Description: After informed consent was obtained from the patient she was placed on bed in a supine position. The right lower quadrant was prepped and draped in a sterile surgical fashion. 1% lidocaine with epi was injected into the dermis and down to the fascia. A small incision was made with an 11 blade. The needle and sheath that came in the kit was slowly advanced through the subcutaneous tissue and the peritoneum into the abdomen. As soon as serous fluid was suctioned the sheath was advanced over the needle into the abdomen and the needle was removed. The sheath was then attached to suction canisters and a total of 1.2 L of serous fluid was removed without complication. The catheter was then attached to the bag for gravity drainage. Another L was removed. Once the procedure was done the sheath was removed and a pressure dressing was applied over the incision. Patient did well and there were no immediate complications.
--- NOTE | 2020-08-01 17:53 | CMDISCH_ITS ---
- If Service Date Differs Date of service: 08/01/20 Time of Service: 17:53 LACE Index Scoring Tool - Questions: Length of Stay (in days): 1 Acuity (Admit via E.D.?): Yes Comorbidities: Liver or Renal Disease E.D. Visits: 5 - Answers: Total Score: 13 Risk of Readmission: High Risk Care Management Discharge Reason for Hospitalization: Symptom management Discharge Plan: Taty will be discharged back to the [facility] where [facility]. She will transport with her and be admitted to hospice. Libia Granados, Hospice nurse, met with Nina today to explain the hospice service and questions were answered. She will be followed by the hospice team going forward. Patient/Family Education Needs: Hospice care, expectations, limitations Services Needed at Discharge: Home Health Care Services
== END 2020-08-01 17:30 | disposition designated cancer center or children's hospital (05) | DRG 433 ==
LOC: ER 16:13 → MS 16:58
PROVIDERS: Admitting Provider Internal Medicine; Emergency Provider Physician Assistant; PCP Nurse Practitioner Family; Visit Provider Internal Medicine
DX: K70.31 Alcoholic cirrhosis of liver with ascites (principal); K76.6 Portal hypertension; I85.10 Secondary esophageal varices without bleeding; Z68.1 Body mass index [BMI] 19.9 or less, adult; Z51.5 Encounter for palliative care; K72.90 Hepatic failure, unspecified without coma; D69.6 Thrombocytopenia, unspecified; R63.4 Abnormal weight loss
CPT/HCPCS: 49082; 36415; 71275; 74177; 80053; 87635; 96374; 96375; 99221; 99285; 83735; 84484; 85025; 85610; 85730; 99222; 99238; J1941; J2060; J2270; J3490

== ENCOUNTER 2020-08-11 09:03 | Day surgery (SDC) | payer MEDICARE, SELFPAY ==
[2020-08-11 09:11] VITALS: BP 101/59; PULSE 89; RESP 18; TEMP 36.6; O2SAT 99
--- NOTE | 2020-08-11 11:10 | W.PM.OP ---
Date of service: 08/11/20 Time of Service: 11:10 Operative Note Operative Note PROCEDURE: paracentisis SURGEON: Deana Alfred ANESTHESIA TYPE: Local By Surgeon Refer to Anesthesia Record Procedure Description: The patient is brought to the procedure room and placed in the supine position. Placement chosen on top in the right upper quadrant. A time-out is done. Ultrasound is used to localize the pocket. The area is prepped and draped in the usual sterile fashion using a ChloraPrep scrub solution. 20 cc's of 1% Lidocaine with epinephrine is used for local anesthetization. The abdomen is punctured and the catheter is inserted. 2.1 liters of light yellow fluid is evacuated today. The catheter is removed. Pressure dressing is applied. The patient tolerated the procedure well without complication.
--- NOTE | 2020-08-11 11:12 | W.PM.DSUDISC ---
Discharge Plan Disposition Patient Disposition: HOME Condition: Poor Discharge Details Reason For Visit: END STAGE CIRRHOSIS Attending Provider: Deana Alfred Primary Care Provider: Sue Bhatia Home Meds and New Rx's Prescriptions: No Action lorazepam [Ativan] 1 mg tablet 1 mg PO Q4H PRN MDD hospice PRN (Reason: anxiety) Qty: 6 RF: 0 morphine concentrate 100 mg/5 mL (20 mg/mL) solution 5 - 20 mg PO Q1H PRN MDD hospice PRN (Reason: pain) Qty: 30 RF: 0 melatonin 3 mg Tablet 3 mg PO .QHS RF: 0 Multivitamin Gummies 200 mcg Tablet,Chewable 1 tab PO DAILY RF: 0 midodrine 10 mg tablet 10 mg PO TID RF: 0 spironolactone 100 mg tablet 100 mg PO BID Qty: 60 RF: 0 lactulose 10 gram/15 mL solution 10 g PO DAILY Qty: 237 RF: 1 folic acid 1 mg Tablet 1 mg PO DAILY RF: 0 ergocalciferol (vitamin D2) 25,000 unit Capsule 50,000 unit PO DIRECTED RF: 0 rifaximin 550 mg Tablet 550 mg PO BID RF: 0 furosemide [Lasix] 40 mg tablet 20 mg PO DAILY RF: 0 lorazepam [Ativan] 0.5 mg tablet 0.5 mg PO TID RF: 0 Discharge Instructions Additional Instructions: -change dressing as needed -can use urostomy bag for continued drainage -low sodium diet -can bathe today. Do not soak -call office if desire repeat procedure Diet:: Low Sodium Discharge Orders Discharge Orders: Discharge Order (Routine); Ordered 08/09/20 Ordered By: Deana Alfred DS: Diagnosis Discharge Diagnosis (1) Alcoholic cirrhosis: Status: Acute (2) Anemia: Status: Chronic (3) Alcoholic cirrhosis of liver with ascites: Status: Acute (4) Abnormal weight loss: Status: Acute (5) Advanced hepatic cirrhosis: Status: Chronic (6) Gallstones: Status: Acute (7) Portal hypertension with esophageal varices: Status: Chronic (8) Abdominal ascites: Status: Acute (9) Muscle wasting: Status: Acute
[2020-08-11 11:14] VITALS: BP 94/49; PULSE 88; RESP 20; TEMP 36.5; O2SAT 100
== END 2020-08-11 11:45 | disposition home or self-care (01) ==
PROVIDERS: PCP Nurse Practitioner Family; Visit Provider Surgery
PROC: 0W9G3ZZ Drainage of Peritoneal Cavity, Percutaneous Approach (ICD-10-PCS; CPT 49082; principal; 2020-08-11 10:00)
DX: K70.31 Alcoholic cirrhosis of liver with ascites (principal)
CPT/HCPCS: 49083

== ENCOUNTER 2020-08-19 17:44 | Inpatient (IN) | payer OTHER, SELFPAY ==
[2020-08-19] VITALS (24 sets, daily range): BP systolic 93–118; BP diastolic 52–66; PULSE 88–105; RESP 13–23; TEMP 36.7–36.8; O2SAT 96–100
--- NOTE | 2020-08-19 19:42 | ED.GENADUL_ITS ---
Discharge Plan Discharge Details Chief Complaint: Abd Prob Primary Care Provider: Sue Bhatia ED Provider: Zuly Burris Home Meds and New Rx's Prescriptions: No Action lorazepam [Ativan] 1 mg tablet 1 mg PO Q4H PRN MDD hospice PRN (Reason: anxiety) Qty: 6 RF: 0 morphine concentrate 100 mg/5 mL (20 mg/mL) solution 5 - 20 mg PO Q1H PRN MDD hospice PRN (Reason: pain) Qty: 30 RF: 0 melatonin 3 mg Tablet 3 mg PO .QHS RF: 0 Multivitamin Gummies 200 mcg Tablet,Chewable 1 tab PO DAILY RF: 0 midodrine 10 mg tablet 10 mg PO TID RF: 0 spironolactone 100 mg tablet 100 mg PO BID Qty: 60 RF: 0 lactulose 10 gram/15 mL solution 10 g PO DAILY Qty: 237 RF: 1 folic acid 1 mg Tablet 1 mg PO DAILY RF: 0 ergocalciferol (vitamin D2) 25,000 unit Capsule 50,000 unit PO DIRECTED RF: 0 rifaximin 550 mg Tablet 550 mg PO BID RF: 0 furosemide [Lasix] 40 mg tablet 20 mg PO DAILY RF: 0 lorazepam [Ativan] 0.5 mg tablet 0.5 mg PO TID RF: 0 trazodone 50 mg tablet 50 mg PO HS RF: 0 omeprazole 20 mg capsule,delayed release(DR/EC) 20 mg PO DAILY RF: 0 ergocalciferol (vitamin D2) 1,250 mcg (50,000 unit) capsule 50,000 unit PO DIRECTED RF: 0 acetaminophen 650 mg suppository 650 mg IN Q6H PRN PRNRF: 0 prochlorperazine maleate 10 mg tablet 10 mg PO Q6H PRN PRNRF: 0 hyoscyamine sulfate 0.125 mg tablet, sublingual 0.125 mg sublingual Q4H PRNRF: 0 haloperidol lactate 2 mg/mL concentrate 2 mg PO Q6H PRNRF: 0 Medical Decision Making Patient is alert with history of alcoholic encephalopathy She denies any current complaints and has no evidence of respiratory distress, her abdomen is distended but not tender or significantly firm Patient's is in the room and advocating for patient although I do not see any indication for emergent therapeutic paracentesis patient is a hospice patient therefore Dr. Lopez was consulted and will admit patient to hospice bed Patient has been agreeable to plan at this time Differential Diagnosis Differential Diagnosis: Fracture, strain, cirrhosis, ascites Medical Records Medical records reviewed: Yes I reviewed the patient's medical records. HPI General Mode of arrival: EMS . Date/Time Provider Initiated Documentation: 08/19/20 17:48 . Limitations to Documentation: no limitations and altered mental status . Information obtained by: patient and family Immunizations . HPI Narrative: Alma Rosa benoit presents for reports of needing . She is alcoholic cirrhosis history with ascites, encephalopathy, on hospice. Patient denies any pain to her abdomen or shortness of breath right now. states he is concerned because nurse has been giving her morphine at night and feels she is confused. She has intermittent confusion reportedly. is aware that she is a hospice patient and did call prior to arrival. also states that patient is undergoing therapeutic paracentesis. Patient states she took a fall in the bathroom at approximately 2:15 AM. She states that she suffered abrasions from this, denies any additional complaints. The event was reportedly unwitnessed. She currently resides at [facility]. Related Data Home Medications Medication Instructions Recorded Confirmed lactulose 10 g PO DAILY #237 ml 07/07/20 08/19/20 spironolactone 100 mg PO BID #60 tab 07/07/20 08/19/20 Multivitamin Gummies 1 tab PO DAILY 07/15/20 08/19/20 melatonin 3 mg PO .QHS 07/15/20 08/11/20 midodrine 10 mg PO TID 07/22/20 08/19/20 ergocalciferol (vitamin D2) 50,000 unit PO DIRECTED 07/31/20 07/31/20 folic acid 1 mg PO DAILY 07/31/20 08/19/20 furosemide [Lasix] 20 mg PO DAILY 07/31/20 08/19/20 lorazepam [Ativan] 0.5 mg PO TID 07/31/20 08/19/20 rifaximin 550 mg PO BID 07/31/20 08/19/20 lorazepam 1 mg tablet 1 mg PO Q4H PRN PRN #6 tab MDD 08/02/20 08/19/20 hospice morphine concentrate 100 mg/5 mL 5 - 20 mg PO Q1H PRN PRN #30 ml 08/02/20 08/19/20 (20 mg/mL) oral solution [facility] hospice acetaminophen 650 mg IN Q6H PRN PRN 08/19/20 08/19/20 ergocalciferol (vitamin D2) 50,000 unit PO DIRECTED 08/19/20 08/19/20 haloperidol lactate 2 mg PO Q6H PRN 08/19/20 08/19/20 hyoscyamine sulfate 0.125 mg SUBLINGUAL Q4H PRN 08/19/20 08/19/20 omeprazole 20 mg PO DAILY 08/19/20 08/19/20 prochlorperazine maleate 10 mg PO Q6H PRN PRN 08/19/20 08/19/20 trazodone 50 mg PO HS 08/19/20 08/19/20 Previous Rx's Medication Instructions Recorded lactulose 10 g PO DAILY #237 ml 07/07/20 spironolactone 100 mg PO BID #60 tab 07/07/20 lorazepam 1 mg tablet 1 mg PO Q4H PRN PRN #6 tab MDD 08/02/20 [facility] morphine concentrate 100 mg/5 mL 5 - 20 mg PO Q1H PRN PRN #30 ml 08/02/20 (20 mg/mL) oral solution [facility] hospice Allergies Allergy/AdvReac Type Severity Reaction Status Date / Time erythromycin base AdvReac Mild Nausea Verified 08/19/20 18:03 General Stated Complaint: Abd Prob ARIANE: 3 Review of Systems Unobtainable due to mental status [facility] Medical History (Updated 08/11/20 @ 11:19 by Deana Alfred DO) Abnormal weight loss Acute cholecystitis Acute liver failure Advanced hepatic cirrhosis Alcoholic cirrhosis of liver with ascites Ascites due to alcoholic cirrhosis Coagulopathy Gallstones Hepatic encephalopathy Hyponatremia Leukocytosis Palliative care patient Portal hypertension with esophageal varices Thrombocytopenia Social History Smoking/Tobacco Use Status: Never Smoking risk assessment performed?: Yes Alcohol Intake: former Drug use: Never Substance use type: does not use Details: no etoh since may Do you feel safe at home: Yes Do you feel safe in your relationship?: Yes Exam Const Orientation: alert Other: Chronically ill-appearing Oriented x1 HENMT Other: No visible sign of trauma Resp Effort & Inspection: normal respiratory effort and able to speak in complete sentences Cardio Rhythm: regular rhythm Neuro General: patient alert Extrem Other: Abrasions noted to bilateral forearms Course Vital Signs Vital signs: Vital Signs Temperature 36.8 C 08/19/20 17:48 Pulse 102 H 08/19/20 17:48 Respiratory Rate 08/19/20 17:48 Blood Pressure 102/53 L 08/19/20 17:48 Pulse Oximetry 98 08/19/20 17:48 Temperature 36.8 C 08/19/20 17:48 Temperature Source Temporal Artery Scan 08/19/20 17:48 Pulse 102 H 08/19/20 17:48 Respiratory Rate 08/19/20 17:48 Respiratory Effort Non-Labored 08/19/20 17:57 Blood Pressure 102/53 L 08/19/20 17:48 Blood Pressure Position Sitting 08/19/20 17:48 Pulse Oximetry 98 08/19/20 17:48 Oxygen Delivery Method Room Air 08/19/20 17:48 Oxygen Flow Rate 0 08/19/20 17:48
[2020-08-19 21:06] LABS: Source Nasal/Nares
--- NOTE | 2020-08-19 21:17 | HPE_ITS ---
Date of service: 08/19/20 Time of Service: 18:00 Assessment and Plan Assessment and plan (1) Ascites: Status: Acute Assessment and plan: Moderate based on Hx and review of past notes ... paracentesis seems in order for upcoming week. requesting scheduled paracentesis for more even management. Surg consult. (2) Abdominal pain: Status: Acute Assessment and plan: Moderate, morphine has helped per .. recommending PRN dose x1 this evening to help with general discomfort. (3) Alcoholic cirrhosis: Status: Acute (4) Comfort measures only status: Status: Acute (5) Admission for hospice care: Status: Acute (6) Confusion: Status: Acute Assessment and plan: Acute on chronic issue .. probable hepatic encephalopathy. No fear or paranoia, but Rose asks about things from her past (yellow towel to clean the floor depsite the floor being clean)(ruckus from the children during lunch today). Restart lactulose and rifaximine. (7) Hypotension: Status: Acute Assessment and plan: Seems @ baseline (8) Muscle wasting: Status: Acute History of Present Illness History of Present Illness Chief Complaint: Confusion, Advanced Cirrhosis, Ascites, Abdominal Pain Narrative: Rose is here under the insistence of her who noted serious confusion today and was concerned about her ascites worsening. He had expected an abdominal tap this past week and felt her confusion was due to ascites. Upon further discussion with Rose and her .. a picture of probable hepatic encephalopathy. Her medication review shows lactulose daily, vs past TID (it was changed 2' diarrhea and improved cognition) and d/c of rifaximine. We will review the changes, but I am re-starting the lactulose this evening. Her appetite has been relatively good lately .. and she admits to being hungry now. Med Surg plans to offer a sandwich and/or soup once they have a room assigned. Rose lives @ [facility], and I spoke to the evening nurse who helped clarify medications and her state of mind today, including the fact that there were no issues at lunch and no children in the building. This is notable because Rose did share a lengthy explanation on why she is feeling unwell -- blaming it on a ruckus (my words) happening in the lunchroom today among the kids .. I feel her confused state warrants managing, and increasing the lactulose may help. She will have good [employer] support overnight. Rose agreed to a shabazz so we could monitor output and felt she'd stay in bed for the weekend. We hope to have a surgery consult to review paracentesis plans. Review of Systems Narrative: Limited due to mental status .. much ROS and Hx is from her , hospice nurse and [facility] nurse .. as well as observation. Rose is not complaining of anything; she defers to her .. deferentially and appreciatively. She does not c/o shortness of breath, neither does her fell that is the main issue. She does seem confused in terms of memory .. She was hesitant about staying @ first, but agreed and seemed to be relieved to stay in bed. [facility] Medical History (Updated 08/19/20 @ 21:46 by Irish Izaguirre DO) Abnormal weight loss Acute cholecystitis Acute liver failure Advanced hepatic cirrhosis Alcoholic cirrhosis of liver with ascites Ascites due to alcoholic cirrhosis Coagulopathy Gallstones Hepatic encephalopathy Hyponatremia Leukocytosis Palliative care patient Portal hypertension with esophageal varices Thrombocytopenia Social History Smoking/Tobacco Use Status: Never Smoking risk assessment performed?: Yes Alcohol Intake: former Drug use: Never Substance use type: does not use Details: no etoh since may Do you feel safe at home: Yes Do you feel safe in your relationship?: Yes Meds Allergies and Home Medications Allergies Allergy/AdvReac Type Severity Reaction Status Date / Time erythromycin base AdvReac Mild Nausea Verified 08/19/20 18:03 Home Medications Medication Instructions Recorded Confirmed Type lactulose 10 g PO DAILY #237 ml 07/07/20 08/19/20 Rx spironolactone 100 mg PO BID #60 tab 07/07/20 08/19/20 Rx Multivitamin Gummies 1 tab PO DAILY 07/15/20 08/19/20 History melatonin 3 mg PO .QHS 07/15/20 08/11/20 History midodrine 10 mg PO TID 07/22/20 08/19/20 History ergocalciferol (vitamin D2) 50,000 unit PO DIRECTED 07/31/20 07/31/20 History folic acid 1 mg PO DAILY 07/31/20 08/19/20 History furosemide [Lasix] 20 mg PO DAILY 07/31/20 08/19/20 History lorazepam [Ativan] 0.5 mg PO TID 07/31/20 08/19/20 History rifaximin 550 mg PO BID 07/31/20 08/19/20 History lorazepam 1 mg tablet 1 mg PO Q4H PRN PRN #6 tab MDD 08/02/20 08/19/20 Rx hospice morphine concentrate 100 mg/5 mL 5 - 20 mg PO Q1H PRN PRN #30 ml 08/02/20 08/19/20 Rx (20 mg/mL) oral solution [facility] hospice acetaminophen 650 mg [place] Q6H PRN PRN 08/19/20 08/19/20 History ergocalciferol (vitamin D2) 50,000 unit PO DIRECTED 08/19/20 08/19/20 History haloperidol lactate 2 mg PO Q6H PRN 08/19/20 08/19/20 History hyoscyamine sulfate 0.125 mg SUBLINGUAL Q4H PRN 08/19/20 08/19/20 History omeprazole 20 mg PO DAILY 08/19/20 08/19/20 History prochlorperazine maleate 10 mg PO Q6H PRN PRN 08/19/20 08/19/20 History trazodone 50 mg PO HS 08/19/20 08/19/20 History Exam Narrative Exam Narrative: [place] with her at her side ... She was able to tell me about her belly distension, but would ask her about the pain or share that the nurse knows about the pain and distention. She moved for a brief exam .. I palpated legs, hips, back for pain ... no tenderness. She was not guarded during palpation of her abdomen and there was no sign of tenderness. While rounded and firm, her abd was not hard and I was able to palpate to some degree without tenderness. She is frail, weak, but able to sit up with help and there is no sign of jaundice. Results Labs Labs: Laboratory Results - last 24 hr 08/19/20 20:35 COVID-19 Source Nasal/nares Last Vital Signs Temp 98.2 F 08/19/20 17:48 Pulse 102 H 08/19/20 17:48 Resp 20 08/19/20 17:48 BP 102/53 L 08/19/20 17:48 Pulse Ox 98 08/19/20 17:48
[2020-08-19 22:43] LABS: COVID-19 PCR Negative (Negative)
[2020-08-19] MEDS: traZODone 50 MG TAB PO (23:32)
[2020-08-20] MEDS: Midodrine 2.5 MG TAB 10 MG PO ×3 (09:00→16:13)
[2020-08-20] MEDS: Folic Acid 1 MG TAB PO (09:01)
[2020-08-20] MEDS: Furosemide 20 MG TAB PO (09:01)
[2020-08-20] MEDS: Multivitamin TAB 1 TAB PO (09:02)
[2020-08-20] MEDS: Lactulose 20 GM/30 ML CUP PO ×3 (09:02→20:32)
[2020-08-20] MEDS: Omeprazole 20 MG CAPCR PO (09:02)
[2020-08-20] MEDS: Spironolactone 50 MG TAB 100 MG PO ×2 (09:02→20:32)
[2020-08-20] MEDS: LORazepam 0.5 MG TAB PO ×3 (09:03→20:32)
--- NOTE | 2020-08-20 12:13 | CMPROGNOTE_ITS ---
- If Service Date Differs Date of service: 08/20/20 Time of Service: 12:13 Care Management Progress Note S/O: Dorothea is a 65 year old female who is a hospice patient, residing at the [facility]. Her , Reno, continues to be supportive and involved in her care. Per report, Dorothea has been increasingly confused, which is concerning to Reno. Per MD, this is likely due to hepatic encephalopathy. Dorothea has been having palliative abdominal taps for her ascites, which [place]o is requesting to be scheduled to control her discomfort. She will be observed for symptom management, and will return to the [facility] once her symptoms are well controlled by Hospice. CM will continue to follow. A: Dorothea is a 65 year old female admitted to [facility] on 08/19/20 for hospice symptom management. P: Dorothea's symptoms are confusion and discomfort due to ascites. She will likely have a paracentesis this week. Once her symptoms are well controlled she will return to the [facility]. She will transport via private vehicle by her , unless her mobility prevents this, at which time she will transport via EMS. She will resume hospice support in the community once discharged. CM will continue to follow.
--- NOTE | 2020-08-20 17:02 | SCONE_ITS ---
Date of service: 08/20/20 Time of Service: 17:02 Assessment and Plan Assessment and plan (1) Ascites: Status: Acute Assessment and plan: Moderate amount of ascites, but patient is not symptomatic at this time. This patient is known to the Surgical Services practice. Should be able to schedule drainage with office, as needed. Will discuss with full-time practioners tomorrow. (2) Abdominal pain: Status: Acute Assessment and plan: Nontender, and without complaints at this time. (3) Alcoholic cirrhosis: Status: Acute (4) Comfort measures only status: Status: Acute (5) Admission for hospice care: Status: Acute (6) Confusion: Status: Acute Assessment and plan: Pt did not demonstrate during my exam (7) Muscle wasting: Status: Acute History of Present Illness Narrative: This is a hospice patient with liver failure secondary to alcoholic cirrhosis, who was admitted presumably for worsening hepatic encephalopathy. She has previously undergone paracentesis by Dr. Alfred on 08/11 when 2.1L was removed. On Dr. 08/01/20, Geoffrey also performed a paracentesis and removed 2.2L. At that time, she documented that she could do future procedures at [facility], where the patient resides. Today, Mrs. Jade is stating that she has had some nausea and vomiting, and she's developed difficulty swallowing dry food. However, she states her appetite has been good lately. She denies headace, dizziness, shortness of breath, chest pain, abdominal pain, or dysuria. She is having bowel movements. She does not feel like she needs an acute drainage at this time. Consults Consult date: 08/20/20 Requesting physician: Irish Izaguirre Review of Systems Constitutional Constitutional: Reports fatigue and Reports malaise ENT Ears, Nose, Mouth, and Throat: Reports dysphagia (dry foods) and Reports dry mouth Cardiovascular Cardiovascular: Denies chest pain and Reports dyspnea on exertion Respiratory Respiratory: Denies cough and Reports dyspnea on exertion Gastrointestinal Gastrointestinal: Denies abdominal pain, Denies melena, Reports dysphagia (dry foods) and Reports nausea Genitourinary Genitourinary: Denies difficulty voiding Neurologic Neurologic: Reports confusion Psychiatric Psychiatric: Reports confusion Comments: on hospice Endocrine Endocrine: Reports fatigue [facility] Medical History (Updated 08/19/20 @ 21:46 by Irish Krechetoff, DO) Abnormal weight loss Acute cholecystitis Acute liver failure Advanced hepatic cirrhosis Alcoholic cirrhosis of liver with ascites Ascites due to alcoholic cirrhosis Coagulopathy Gallstones Hepatic encephalopathy Hyponatremia Leukocytosis Palliative care patient Portal hypertension with esophageal varices Thrombocytopenia Social History Smoking/Tobacco Use Status: Never Smoking risk assessment performed?: Yes Alcohol Intake: former Drug use: Never Substance use type: does not use Details: no etoh since may Do you feel safe at home: Yes Do you feel safe in your relationship?: Yes Exam Const General: cooperative, no acute distress, frail appearing and ill appearing Nutritional Appearance: cachectic Orientation: alert and awake HENMT Head: other (temporal wasting) Mouth: mucous membranes dry Chest Chest: abnormal inspection of the chest Other: muscle wasting Resp Effort & Inspection: normal respiratory effort Auscultation: clear to auscultation bilaterally Cardio Rate: regular rate Heart Sounds: S1 normal, S2 normal and murmur GI Inspection: caput medusae present Palpation: soft, no guarding and not rigid Percussion: fluid wave Auscultation: normal bowel sounds Other: soft, nontender, protuberant abdomen with fluid wave, +caput medusae, not firm, no guarding, no peritoneal signs Skin General skin exam: decreased turgor Neuro General: patient alert, patient awake and patient oriented x3 Speech: speech normal Extrem General: no edema and muscle atrophy Psych Mood: congruent mood Affect: normal affect Attitude: cooperative Thought Process: normal Thought Content: normal Insight: insight good Judgment: judgment good Other: Did not experience confusion previously documented Results Last Vital Signs Temp 98.1 F 08/19/20 21:40 Pulse 91 H 08/19/20 21:40 Resp 18 08/19/20 21:40 BP 93/53 L 08/19/20 21:40 Pulse Ox 99 08/19/20 21:40 Labs Labs: Laboratory Results - last 24 hr 08/19/20 20:35 COVID-19 Source Nasal/nares SARS-CoV-2 (PCR) Negative
--- NOTE | 2020-08-20 20:22 | PGE_ITS ---
Date of Service Date of service: 08/20/20 Time of Service: 17:00 Assessment and Plan Assessment and plan (1) Ascites: Status: Acute Assessment and plan: Moderate based on admission evaluation and Surgical note. Paracentesis to be scheduled for the office. Dr. Hall and Surgery to discuss ... (2) Abdominal pain: Status: Acute Assessment and plan: Mild. BMs (+) ... No c/o cramping .. able to sit on commode. (3) Alcoholic cirrhosis: Status: Acute Assessment and plan: Hx (4) Comfort measures only status: Status: Acute (5) Admission for hospice care: Status: Acute (6) Confusion: Status: Acute Assessment and plan: Acute on chronic issue .. probable hepatic encephalopathy. feels this has improved a bt .. and I agree that her recall and desciption of BMs/Shabazz discomfort is clearer. Note: Rose was sure a doctor had been in to see her, but nursing questioned it. It seems the surgeon did come, but it was the night before .. which can easily be mixed in Rose's mind when in a new room/environment. Continue lactulose. D/C Rifaximine. (7) Hypotension: Status: Acute Assessment and plan: Seems @ baseline (8) Muscle wasting: Status: Acute Subjective Subjective Patient reports: feels better, still having pain (Shabazz insertion was painful and remains uncomfrtable as she gets up to have BMs), tolerating liquids well, tolerating a regular diet (Poor appetite per ; Nausea reported by nursing ), flatus, bowel movement, diarrhea and nausea; denies vomiting and shortness of breath Interval history since last seen: Rose appreciates the care, but is tired 2' many bowel movements .. she is unclear if meds and BMs are helping her, but her feels she is clearer. She was clear and specific in describing BMs and the shabazz process from the night before which does seem clearer than when she was talking with me yesterday evening. She is clearly tired, however, and somwhat slumped and under all her covers today. She did smile. Exam Narrative Exam Narrative: I walked in on [place] asking questions of the nurse, but waved to Rose who smiled with apparent recognition of me. She was in bed, under the covers. After long discussion of medications, expected surgical consult and my estimate for discharge in 1-2 days, Rose described the difficulty of the shabazz process. She nodded and agreed with me again when I explained I had wanted an estimate of her output .. but she was happy to hear we could d/c the shabazz this evening. [place]o had questions about the possible tap and would very much like a scheduled tap, if possible. I agreed as it is quite an ordeal to put Rose through ED or even hospital visits. I shared my expectation that paracenteses may be necessary through-out the summer. [ ] Dr. Hall, Hospice doctor as of Friday [ ] Surgical consult requested .. expected Friday [ ] Paracentesis schedule - if possible [ ] Rifampin to be reviewed .. I expect this to be discontinued (Rx by [facility];Poor insurance coverage with min benefit) [ ] Shabazz d/c [ ] Anti-emetic per nursing Objective Last Vital Signs Temp 98.1 F 08/19/20 21:40 Pulse 91 H 08/19/20 21:40 Resp 18 08/19/20 21:40 BP 93/53 L 08/19/20 21:40 Pulse Ox 99 08/19/20 21:40 Laboratory Results - last 24 hr 08/19/20 20:35 COVID-19 Source Nasal/nares SARS-CoV-2 (PCR) Negative
[2020-08-21] MEDS: Lactulose 20 GM/30 ML CUP PO (07:45)
[2020-08-21] MEDS: Midodrine 2.5 MG TAB 10 MG PO (07:45)
[2020-08-21] MEDS: Spironolactone 50 MG TAB 100 MG PO (07:46)
[2020-08-21] MEDS: LORazepam 0.5 MG TAB PO (07:46)
[2020-08-21] MEDS: Furosemide 20 MG TAB PO (07:46)
[2020-08-21] MEDS: Folic Acid 1 MG TAB PO (07:46)
[2020-08-21] MEDS: Multivitamin TAB 1 TAB PO (07:46)
[2020-08-21] MEDS: Omeprazole 20 MG CAPCR PO (07:46)
--- NOTE | 2020-08-21 09:24 | W.PM.DS.N ---
DS: Diagnosis Discharge Diagnosis (1) Ascites: Status: Chronic Asessment and Plan: due to her alcoholic cirrhosis will get tapped at later this week Dr Hale's office is aware (2) Abdominal pain: Status: Resolved Asessment and Plan: No pain at rest or with palpation abdomen is distended but not tense (3) Alcoholic cirrhosis: Status: Chronic Asessment and Plan: With chronic encephalopathy plan is for her to have 3-4 BMs per day she is chronically incontinent of both urine and stool some early skin breakdown noted at time of discharge will need mepiplex daily (gets soiled with stool). (4) Comfort measures only status: Status: Chronic Asessment and Plan: She is a hospice patient All care directed to her comfort (5) Admission for hospice care: Status: Resolved Asessment and Plan: Being discharged by private car back to [facility]. [place] is supposed to transport. I have tried him 2 x and no answer. If needed, could transport by [facility] vehicle. (6) Confusion: Status: Chronic Asessment and Plan: She is as clear as she gets today, per staff, but still confused. THought that she still had shabazz in. Thought that she had circles of poop all around her bed. How she is at discharge is likely her clearest. Must maintain 3-4 stools per day to maximize mental clarity. (7) Hypotension: Status: Chronic Asessment and Plan: Her baseline BP is 80-90/50-60 (8) Muscle wasting: Status: Chronic Asessment and Plan: Due to years of poor nutrition and now due to inability to absorb nutrients. Part of her hospice diagnosis. Alcoholic cirrhosis with chronic protein/calorie malnutrition with muscle wasting and chronic confusion. Discharge Plan Disposition Patient Disposition: HOME W/HOME HEALTH SERVICE Condition: Poor Discharge Details Reason For Visit: Symptom management:confusion,advanced cirrhosis,as Admit Date/Time: 08/19/20 20:04 Admit Provider: Charis Hall Attending Provider: Charis Hall Primary Care Provider: Sue Bhatia Hospital Course Hospital Course: Admitted by Dr Izaguirre for worsening encephalopthy from her end-stage cirrhosis. Cleared somewhat with increased dose of lactulose. Needs to have 3-4 BMs per day to stay as mentally clear as possible. Will have parencentesis at later this week. Was evaluated by surgery during this admission and ascites not tense, no emergent need for tap. Is not short of breath or uncomfortable from her ascites at this time. Exam on discharge as noted. Home Meds and New Rx's Prescriptions: New lactulose 20 gram/30 mL Solution 20 g PO TID 30 Days Qty: 2700 RF: 0 Continued lorazepam [Ativan] 1 mg tablet 1 mg PO Q4H PRN MDD hospice PRN (Reason: anxiety) Qty: 6 RF: 0 morphine concentrate 100 mg/5 mL (20 mg/mL) solution 5 - 20 mg PO Q1H PRN MDD hospice PRN (Reason: pain) Qty: 30 RF: 0 melatonin 3 mg Tablet 3 mg PO .QHS RF: 0 midodrine 10 mg tablet 10 mg PO TID RF: 0 spironolactone 100 mg tablet 100 mg PO BID Qty: 60 RF: 0 folic acid 1 mg Tablet 1 mg PO DAILY RF: 0 furosemide [Lasix] 40 mg tablet 20 mg PO DAILY RF: 0 lorazepam [Ativan] 0.5 mg tablet 0.5 mg PO TID RF: 0 omeprazole 20 mg capsule,delayed release(DR/EC) 20 mg PO DAILY RF: 0 acetaminophen 650 mg suppository 650 mg [place] Q6H PRN PRNRF: 0 prochlorperazine maleate 10 mg tablet 10 mg PO Q6H PRN PRNRF: 0 hyoscyamine sulfate 0.125 mg tablet, sublingual 0.125 mg sublingual Q4H PRNRF: 0 haloperidol lactate 2 mg/mL concentrate 2 mg PO Q6H PRNRF: 0 Discontinued Multivitamin Gummies 200 mcg Tablet,Chewable 1 tab PO DAILY RF: 0 lactulose 10 gram/15 mL solution 10 g PO DAILY Qty: 237 RF: 1 ergocalciferol (vitamin D2) 25,000 unit Capsule 50,000 unit PO DIRECTED RF: 0 rifaximin 550 mg Tablet 550 mg PO BID RF: 0 trazodone 50 mg tablet 50 mg PO HS RF: 0 ergocalciferol (vitamin D2) 1,250 mcg (50,000 unit) capsule 50,000 unit PO DIRECTED RF: 0 Discharge Instructions Referrals: Leslie Hale MD [ [facility] STAFF PHYSICIAN] - (Dr. Hale office will call [facility] with a date and time for Paracentesis) Activity:: Activity as Tolerated Equipment/Supplies:: No Equipment Needed Diet:: As Tolerated Discharge Orders Discharge Orders: Discharge Order (Routine); Ordered 08/21/20 Ordered By: Charis Hall DS: Summary Time Spent with Patient providing and/or coordinating discharge services: Greater than 30 minutes Status at Discharge Functional status at discharge: uses cane/walker Overall status at discharge: patient is back to baseline Mental Status: other (chronic encephalopathy) Speech and Movement: speech clear Mood: anxious mood and dysthymic mood Affect: anxious affect Exam Narrative Exam Narrative: She was in bed, under the covers. Cachectic with distended but soft abdomen. Bruising c/w end-stage liver disease. Confused, but not frankly delirious/encephalopathic. Very weak. + musclar atrophy. Tearful on and off. Gave me social and family history; about 80% accurate per [place], to whom I spoke by phone. Heart regular but tachycardic. Abdomen distended but not painful or tense. Lungs distant but clear. Psych : anxious, inaccurate historian about her alcohol intake (stopped in June 2020, only when admitted to hospital.). Will see her after her return to [facility], likely in [address] Hale to evaluate her for parencentesis this week. MAY NOT BE NECESSARY YET. Psych Speech and Movement: speech clear Mood: anxious mood and dysthymic mood Affect: anxious affect DS: Data Vitals/I&O Vitals and I&O: Vital Signs Temperature 98.1 F 08/19/20 21:40 Temperature Source Tympanic 08/19/20 21:37 Pulse 91 H 08/19/20 21:40 Pulse Rhythm Regular 08/21/20 05:24 Pulse 90 08/19/20 21:15 Respiratory Rate 18 08/19/20 21:40 Respiratory Effort Non-Labored 08/21/20 05:24 Respiratory Depth Normal 08/21/20 05:24 Respiratory Pattern Normal 08/21/20 05:24 Blood Pressure 93/53 L 08/19/20 21:40 Blood Pressure Mean 68 08/19/20 21:15 Blood Pressure Position Sitting 08/19/20 17:48 Pulse Oximetry 99 08/19/20 21:40 Oxygen Delivery Method Room Air 08/19/20 21:40 Oxygen Flow Rate 0 08/19/20 21:40 Pain Level 0 08/19/20 21:40 Intake & Output 08/20/20 08/20/20 08/21/20 11:59 23:59 11:59 Intake Total 0 720 / 730 Output Total 300 / 550 250 / 550 200 / 200 Balance -290 / 180 470 / 180 -200 / -200 Intake: IV Oral 710 / 710 Output: Urine 300 / 550 250 / 550 200 / 200 Other: Urine Color Light Tiffany Light Tiffany Yellow [place] Urine Appearance Clear Clear Clear Urine Odor Normal Comment shabazz d/c'd intact. Pt tolerated well. Stool Size Small Small Moderate Stool Characteristics Soft Soft Liquid Formed Brown Brown Voiding Methods Indwelling Catheter [facility] Medical History (Updated 08/21/20 @ 09:37 by Charis Hall MD) Abnormal weight loss Acute cholecystitis Acute liver failure Advanced hepatic cirrhosis Alcoholic cirrhosis of liver with ascites Ascites due to alcoholic cirrhosis Coagulopathy Gallstones Hepatic encephalopathy Hyponatremia Leukocytosis Palliative care patient Portal hypertension with esophageal varices Thrombocytopenia Family History (Updated 08/21/20 @ 09:46 by Charis Hall MD) Mother , age 47 of unknown type of cancer Cancer Father Alcohol abuse Cirrhosis, alcoholic Daughter No problems noted. Daughter No problems noted. Social History (Updated 08/21/20 @ 09:45 by Charis Hall MD) Smoking/Tobacco Use Status: Never Smoking risk assessment performed?: Yes Alcohol Intake: former Year quit: 2020 Drug use: Never Substance use type: does not use Details: no etoh since may Caregiver/Support person: Yes (spouse [place] Jade) Household members: other Details: private room; visits daily Housing: assisted living facility Number of Children: 2 Communication Needs: Corrective Lenses Education Level: high school Do you need help understanding health information?: Always current occupation: retired insurance workers compensation legal secretary Current gender identity: female What is your relationship status?: How often do you talk on the phone with friends or family?: three or more times per week How often do you get together with friends or relatives?: three or more times per week Panel score (0-1 are the most socially isolated patients): 2 What type of physical activity do you participate in: none and sedentary lifestyle Frequency: does not exercise Special sue needs: No Agree to transfusion: No Seatbelt use: always Water heater temp set <120 deg: Yes Working smoke detector in home: Yes Fire extinguisher in home: Yes Do you feel safe at home: Yes Do you feel safe in your relationship?: Yes Additional Social history: Moved into [facility] on 25 Jul 2020. Admitted to hospice on 02 August 2020. Continues to fail. Cachectic. Incontinent. Can walk with assistance.
== END 2020-08-21 13:07 | disposition home health service (06) | DRG 433 ==
LOC: ER 20:15 → MS 21:20
PROVIDERS: Admitting Provider Family Medicine; Emergency Provider Physician Assistant; PCP Nurse Practitioner Family; Visit Provider Family Medicine
DX: K70.40 Alcoholic hepatic failure without coma (principal); Z68.1 Body mass index [BMI] 19.9 or less, adult; K76.6 Portal hypertension; I85.10 Secondary esophageal varices without bleeding; D68.9 Coagulation defect, unspecified; E46 Unspecified protein-calorie malnutrition; K70.31 Alcoholic cirrhosis of liver with ascites; Z51.5 Encounter for palliative care; I95.9 Hypotension, unspecified; M62.58 Muscle wasting and atrophy, not elsewhere classified, other site; R63.4 Abnormal weight loss; D69.6 Thrombocytopenia, unspecified
CPT/HCPCS: 87635; 99285; 99284; G0378

== ENCOUNTER → 2020-09-05 15:31 | Outpatient (BNVA) | payer MEDICARE, SELFPAY | PROVIDERS: PCP Nurse Practitioner Family; Referring Provider Nurse Practitioner Family; Visit Provider Surgery | DX: R69 Illness, unspecified (principal) ==